=== PATIENT | female | born 1935 | race Caucasian/White ===

== ENCOUNTER → 2017-07-31 | Outpatient (CLI) | payer MEDICARE, OTHER ==
[~2017-07-31] MED LIST: ASCO500T20 PO; ASP81TEC PO; AZIT-21 PO; BENFOTIAMINE PO; CHOL50003 PO; CRAN450T9 PO; FISH OIL LIQUID PO; GFN600TCR PO; IBUP-30 PO; LEVO125T PO; OMG1KC PO; OX BILE PO; PANC1CAP PO; PLANT ENZYMES PO; THYR60TA27 PO; VITA1CAP59 PO
--- NOTE | 2017-07-31 13:25 | Diagnostic Imaging Report ---
PROCEDURE: US Gallbladder. TECHNIQUE: Multiple Real-time grayscale images were obtained over the right upper quadrant in various projections. INDICATION: Right upper quadrant pain. FINDINGS: The visualized portions of the pancreas appear unremarkable. The liver demonstrates a septated cyst measuring 2.3 x 2.4 x 1.7 cm in the left lobe without solid or suspicious component. The gallbladder demonstrates no stones or wall thickening. No pericholecystic fluid. The sonographic Kulkarni sign is negative. Hepatopetal flow in the portal vein is demonstrated. The CBD is 4 mm in caliber. The right kidney is 8.9 cm in length with no hydronephrosis. Slight prominence of the renal pelvis without dilatation of the renal calyces is seen. No significant fluid collection in the upper right abdomen. IMPRESSION: No gallstones or evidence of cholecystitis. Dictated by: Dictated on workstation # [id number]
== END ==
LOC: RAD 12:30
PROVIDERS: ATTEND Nurse Practitioner Family
DX: R10.11 Right upper quadrant pain (principal)
CPT/HCPCS: 76705

== ENCOUNTER → 2018-07-15 | Outpatient (CLI) | payer MEDICARE, OTHER ==
--- NOTE | 2018-07-15 13:37 | Diagnostic Imaging Report ---
PROCEDURE: MRI lumbar spine. TECHNIQUE: Multiplanar, multisequence MRI of the lumbar spine was performed without contrast. INDICATION: Left leg pain. COMPARISON: There are no prior studies available for comparison. FINDINGS: The T2 sagittal images reveal that there is desiccation of the discs at every level and there is narrowing of the disc spaces at L3-L4 and L4-L5. At the L3-L4 level, there is a slight disc bulge centrally. The disc flattens the ventral aspect of the thecal sac and narrows the AP diameter to 1.6 mm. There does not appear to be any significant neuroforaminal narrowing at this level. At the L4-L5 level, there is a disc bulge centrally which flattens the ventral aspect of the thecal sac and narrows the AP diameter to approximately 14.3 mm. There is mild narrowing of the neuroforamen bilaterally at this level. There is also mild narrowing of the neuroforamen bilaterally at L5-S1 and there is slight anterior translation of L5 with respect to S1. The AP diameter of the thecal sac at this level is 10.5 mm. There is no evidence for spinal stenosis or any significant neuroforaminal narrowing at L1-L2 or L2-L3. There is no abnormal signal arising from the cord or other vertebral bodies to indicate an acute abnormality. There do appear to be multiple vertebral body hemangiomas involving the T9, T10, T11, T12, and L3, L4, and S2. There is no abnormal signal arising from the cord. There is an 8.6 x 13.5 mm perineural cyst on the left at T11. This is most likely benign. There is a similar appearing but smaller 6.5 x 7.2 mm cyst on the right at this level. There also appear to be a few benign-appearing sacral cysts. There is no sign of a paraspinal mass. IMPRESSION: 1. 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 There is no evidence for spinal stenosis or nerve root encroachment at these two levels or at any other level of the lumbar spine. 2. There is no acute bony abnormality identified and there is no sign of a cord lesion. 3. There are benign-appearing perineural cysts bilaterally at T11. There also appear to be a few benign sacral cysts. 4. 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 Dictated by: Dictated on workstation # [id number]
== END ==
LOC: RAD 10:15
PROVIDERS: ATTEND Internal Medicine
DX: M47.816 Spondylosis without myelopathy or radiculopathy, lumbar region (principal); G57.92 Unspecified mononeuropathy of left lower limb; D18.09 Hemangioma of other sites; Z86.69 Personal history of other diseases of the nervous system and sense organs
CPT/HCPCS: 72148

== ENCOUNTER → 2019-09-19 | Outpatient (CLI) | payer MEDICARE, OTHER ==
--- NOTE | 2019-09-19 12:37 | Diagnostic Imaging Report ---
PROCEDURE: US carotid duplex, bilateral. TECHNIQUE: Multiple real-time grayscale images were obtained over the carotid arteries in various projections, bilaterally. Additional spectral analysis and color Doppler duplex images were also obtained. INDICATION: Carotid stenosis. FINDINGS: The previous carotid Doppler exam performed on 11/18/2015 noted atherosclerotic disease involving both carotid systems but failed to show any sign of a hemodynamically significant stenosis. On this exam, there is mild hard and soft plaque formation in both carotid systems. The flow velocities still fail to show any sign of a hemodynamically significant stenosis of the common or internal carotid arteries. Both vertebral arteries were identified and there was antegrade flow bilaterally. IMPRESSION: There is atherosclerotic disease involving both carotid systems but there is still no evidence for a hemodynamically significant stenosis of the common or internal carotid arteries. Parameters based on the consensus panel Hawkins-Scale and Doppler ultrasound criteria published June 2003, Radiology, Volume 229. DOPPLER (peak systolic velocity M/S Right Left CCA 1.00 1.16 ICA Proximal .90 .50 ICA Mid .95 .62 ICA Distal .97 .97 RATIO .97 .98 ECA .71 1.46 VERT .59 .60 Dictated by: Dictated on workstation # [id number]
== END ==
LOC: RAD 10:27
PROVIDERS: ATTEND Internal Medicine
DX: I65.23 Occlusion and stenosis of bilateral carotid arteries (principal)
CPT/HCPCS: 93880

== ENCOUNTER 2019-11-05 16:46 | Observation (INO) | payer MEDICARE, OTHER ==
[~2019-11-05] VITALS: Ht 160 cm; Wt 65.9 kg
[2019-11-05] VITALS (8 sets, daily range): BP systolic 123–160; BP diastolic 40–95
[2019-11-05] MEDS ORDERED: ASPIRIN 81 MG CHEW (CHILDREN'S ASA) PO ONE (17:15)
[2019-11-05 17:22] LABS: BASOPHILS % (AUTO) 1 % (0-10); EOSINOPHILS # (AUTO) 0.2 10^3/uL (0.0-0.3); EOSINOPHILS % (AUTO) 3 % (0-10); HEMATOCRIT 42 % (35-52); HEMOGLOBIN 13.9 G/DL (11.5-16.0); LYMPHOCYTES # (AUTO) 1.8 X 10^3 (1.0-4.0); LYMPHOCYTES % (AUTO) 30 % (12-44); MEAN CORPUSCULAR HEMOGLOBIN 31 PG (25-34); MEAN CORPUSCULAR HGB CONC 33 G/DL (32-36); MEAN CORPUSCULAR VOLUME 92 FL (80-99); MEAN PLATELET VOLUME 10.9 FL (7.4-10.4); MONOCYTES # (AUTO) 0.7 X 10^3 (0.0-1.0); MONOCYTES % (AUTO) 13 % (0-12); NEUTROPHILS # (AUTO) 3.2 X 10^3 (1.8-7.8); NEUTROPHILS % (AUTO) 55 % (42-75); PLATELET COUNT 210 10^3/uL (130-400); RED CELL DISTRIBUTION WIDTH 13.8 % (10.0-14.5); WHITE BLOOD COUNT 5.9 10^3/uL (4.3-11.0)
[2019-11-05 17:29] LABS: INR 0.9 (0.8-1.4); PROTHROMBIN TIME PATIENT 12.4 SEC (12.2-14.7)
--- NOTE | 2019-11-05 17:35 | ED Cardiac General ---
History of Present Illness General Chief Complaint: Cardiac/General Problems Stated Complaint: ABNORMAL EKG Nursing Triage Note: Pt to room #6 via ED w/c by family with c/o EKG changes. 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 Pt reports she was sent to this ED for further evaluation by Dr. Coon. Pt reports weakness, palpitation, et SOA. Pt denies CP, fever, or chills. Source: patient History of Present Illness Date Seen by Provider: Nov 05, 2019 Time Seen by Provider: 17:00 Initial Comments PT ARRIVES VIA POV WITH AND DAUGHTER--SENT HERE FROM DR. COON'S OFFICE STATES SHE WAS TOLD HER "LEFT BUNDLE BRANCH BLOCK IS GETTING WORSE" PT STATES SHE WAS DX WITH LBBB IN THE LAST YEAR, BUT HAS NOT SEEN A PRODUCTION LINE WELDER IN SEVERAL YEARS HAD CARDIAC CATH BY DR. LARRY AT [facility] YEARS AGO--WAS TOLD ARTERIES WERE "CLEAR" BUT SHE HAS PROBLEMS WITH HER VALVES--"MITRAL VALVE PROLAPSE" PER PT AND FAMILY. PT DENIES CHEST PAIN STATES SHE HAS BEEN HAVING SHORTNESS OF BREATH FOR THE LAST FEW MONTHS STATES SHE HAS BEEN HAVING LEG SWELLING FOR ABOUT 6 MONTHS, ALONG WITH SWELLING OF HER ABDOMEN STATES SHE HAS ONGOING INTERMITTENT PALPITATIONS--STATES SHE HAD AN EPISODE LAST NIGHT THAT WOKE HER UP--HEART WAS BEATING FAST AND VERY IRREGULAR AND THEN IT WOULD STOP BEATING FOR A SECOND, THEN START BEATING AGAIN. WAS NAUSEATED WITH IT WELL NO SWEATS HAS HAD A COUPLE OF EPISODES OF DIZZINESS ON STANDING AND WITH EXERTION OVER THE LAST COUPLE OF WEEKS Allergies and Home Medications Allergies Coded Allergies: egg (Unverified Allergy, Unknown, 12/12/13) FROM UNCODED ALLERGIES latex (Verified Allergy, Unknown, 12/12/13) milk (Unverified Allergy, Unknown, 12/12/13) FROM UNCODED ALLERGIES Uncoded Allergies: ANTIBIOTICS ALL (Allergy, Unknown, 12/12/13) CARMELA (Allergy, Unknown, 12/12/13) CODEINE (Allergy, Unknown, 12/12/13) CORTISONE (Allergy, Unknown, 12/12/13) DYE (Allergy, Unknown, 12/12/13) Home Medications Ascorbic Acid 500 Mg Tablet, 500 MG PO DAILY WITH LUNCH, (Reported) Aspirin 81 Mg Tabec, 81 MG PO BID, (Reported) Azithromycin 250 Mg Tab, 1 TAB PO DAILY Prescribed by: TERESE MARTÍNEZ on 12/13/13 1243 Cholecalciferol 5,000 Unit Tablet, 5,000 UNIT PO DAILY, (Reported) Cranberry Fruit 450 Mg Tablet, 450 MG PO BID, (Reported) Guaifenesin 600 Mg Tab, 600 MG PO BID Prescribed by: TERESE MARTÍNEZ on 12/13/13 1243 Thyroid,Pork 60 Mg Tablet, 60 MG PO DAILY, (Reported) Vitamin B Complex 1 Cap Capsule, 1 CAP PO DAILY WITH LUNCH, (Reported) [Best Benfotiamine] , 300 MG PO BID, (Reported) [Fish Oil Liquid] , 2 TSP PO DAILY WITH LUNCH, (Reported) [Plant Enzymes] , 1-2 CAP PO TID, (Reported) TAKES 1 TO 2 CAPSULES WITH EACH MEAL DEPENDING ON SIZE OF MEAL Patient Home Medication List Home Medication List Reviewed: Yes Review of Systems Review of Systems Constitutional: see HPI, dizziness EENTM: No Symptoms Reported Respiratory: See HPI, Shortness of Air, SOA With Exertion Cardiovascular: See HPI, Edema, Irregular Heart Rate, Lightheadedness, Palpitations; Denies Syncope Gastrointestinal: See HPI; Denies Abdominal Pain; Nausea; Denies Vomiting Genitourinary: No Symptoms Reported Musculoskeletal: no symptoms reported Skin: no symptoms reported Psychiatric/Neurological: No Symptoms Reported Endocrine: No Symptoms Reported Hematologic/Lymphatic: No Symptoms Reported Past Ghpkmdw-Euvyxe-Khbwiu Hx Past Med/Social Hx: Reviewed and Corrections made Patient Social History Alcohol Use: Denies Use Recreational Drug Use: No Smoking Status: Never a Smoker Recent Foreign Travel: No Contact w/Someone Who Travel: No Recent Infectious Disease Expo: No Immunizations Up To Date Tetanus Booster (TDap): Unknown Past Medical History Surgeries: Yes (HYST/OVARIES INTACT; APPENDECTOMY; T&A; LEFT ANKLE FX/ORIF; CARDIAC CATH) Adenoidectomy, Cardiac, Hysterectomy, Orthopedic, Tonsillectomy Respiratory: Yes Pneumonia Cardiac: Yes ("MITRAL VALVE PROLAPSE" PER PT AND FAMILY; CARDIAC CATH--NO INTERVENTION) Valvular Heart Disease Neurological: No Reproductive Disorders: 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, Menopausal Genitourinary: No Gastrointestinal: Yes Chronic Constipation Musculoskeletal: Yes (LEFT ANKLE FX/ORIF) Fractures Endocrine: Yes Hypothyroidsim HEENT: Yes Tonsilitis Cancer: No Psychosocial: No Integumentary: No Blood Disorders: No Family Medical History Family history: Allergy 09 BROTHER Family history: Arthritis 03 MOTHER Family history: Cardiovascular disease 03 FATHER Family history: Hypertension 03 MOTHER Family history: Osteoporosis 03 MOTHER Myocardial infarction 03 FATHER Visual impairment 03 FATHER (MAC DENGERATION) Physical Exam Vital Signs Vital Signs - First Documented 11/05/19 16:53 Temp 36.8 Pulse 76 Resp 19 B/P (MAP) 148/78 (101) Pulse Ox 98 O2 Delivery Room Air Capillary Refill : Less Than 3 Seconds Height, Weight, BMI Height: 5'1.00" Weight: 118lbs. 4.0oz. [id number]; 25.00 BMI Method:Stated General Appearance: No Apparent Distress, WD/WN HEENT: PERRL/EOMI Neck: Full Range of Motion, Normal Inspection, Non Tender, Supple; No Carotid Bruit, No JVD Respiratory: Normal Breath Sounds, No Accessory Muscle Use, No Respiratory Distress Cardiovascular: Regular Rate, Rhythm, No Edema, No JVD, Normal Peripheral Pulses, Systolic Murmur (? FAINT ? 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 Skin: Normal Color, Warm/Dry Progress/Results/Core Measures Results/Orders Lab Results Laboratory Tests Test 11/05/19 17:00 Range/Units White Blood Count 5.9 4.3-11.0 10^3/uL Red Blood Count 4.54 4.35-5.85 10^6/uL Hemoglobin 13.9 11.5-16.0 G/DL Hematocrit 42 35-52 % Mean Corpuscular Volume 92 80-99 FL Mean Corpuscular Hemoglobin 31 25-34 PG Mean Corpuscular Hemoglobin Concent 33 32-36 G/DL Red Cell Distribution Width 13.8 10.0-14.5 % Platelet Count 210 130-400 10^3/uL Mean Platelet Volume 10.9 H 7.4-10.4 FL Neutrophils (%) (Auto) 55 42-75 % Lymphocytes (%) (Auto) 30 12-44 % Monocytes (%) (Auto) 13 H 0-12 % Eosinophils (%) (Auto) 3 0-10 % Basophils (%) (Auto) 1 0-10 % Neutrophils # (Auto) 3.2 1.8-7.8 X 10^3 Lymphocytes # (Auto) 1.8 1.0-4.0 X 10^3 Monocytes # (Auto) 0.7 0.0-1.0 X 10^3 Eosinophils # (Auto) 0.2 0.0-0.3 10^3/uL Basophils # (Auto) 0.0 0.0-0.1 10^3/uL Prothrombin Time 12.4 12.2-14.7 SEC INR Comment 0.9 0.8-1.4 Activated Partial Thromboplast Time 27 24-35 SEC Sodium Level 139 135-145 MMOL/L Potassium Level 4.5 3.6-5.0 MMOL/L Chloride Level 103 98-107 MMOL/L Carbon Dioxide Level 23 21-32 MMOL/L Anion Gap 13 5-14 MMOL/L Blood Urea Nitrogen 14 7-18 MG/DL Creatinine 0.74 0.60-1.30 MG/DL Estimat Glomerular Filtration Rate > 60 BUN/Creatinine Ratio 19 Glucose Level 93 70-105 MG/DL Calcium Level 9.3 8.5-10.1 MG/DL Corrected Calcium 9.2 8.5-10.1 MG/DL Magnesium Level 2.2 1.6-2.4 MG/DL Total Bilirubin 0.5 0.1-1.0 MG/DL Aspartate Amino Transf (AST/SGOT) 36 H 5-34 U/L Alanine Aminotransferase (ALT/SGPT) 21 0-55 U/L Alkaline Phosphatase 102 40-136 U/L Total Creatine Kinase 43 29-168 U/L Creatine Kinase MB 1.1 <6.6 NG/ML Myoglobin 53.3 10.0-92.0 NG/ML Troponin I < 0.028 <0.028 NG/ML B-Type Natriuretic Peptide 91.6 <100.0 PG/ML Total Protein 7.4 6.4-8.2 GM/DL Albumin 4.1 3.2-4.5 GM/DL TSH [facility] Testing 1.78 0.35-4.94 UIU/ML My Orders Orders - RANJIT,AQUILINO K DO Ed Iv/Invasive Line Start (11/05/19 17:15) Ekg Tracing (11/05/19 17:15) Monitor-Rhythm Ecg Trace Only (11/05/19 17:15) BNP (11/05/19 17:15) Cbc With Automated Diff (11/05/19 17:15) Comprehensive Metabolic Panel (11/05/19 17:15) Creatine Kinase (11/05/19 17:15) Creatine Kinase Mb (11/05/19 17:15) Magnesium (11/05/19 17:15) Protime With Inr (11/05/19 17:15) Partial Thromboplastin Time (11/05/19 17:15) Thyroid Analyzer (11/05/19 17:15) Myoglobin Serum (11/05/19 17:15) Troponin I (11/05/19 17:15) Chest 1 View, Ap/Pa Only (11/05/19 17:15) Aspirin Chewable Tablet (Baby Aspirin Ch (11/05/19 17:15) Medications Given in ED Current Medications Medications Dose Ordered Sig/Carissa Route Start Time Stop Time Status Last Admin Dose Admin Aspirin 324 mg ONCE ONCE PO 11/05/19 17:15 11/05/19 17:17 DC 11/05/19 17:26 324 MG Vital Signs/I&O 11/05/19 16:53 Temp 36.8 Pulse 76 Resp 19 B/P (MAP) 148/78 (101) Pulse Ox 98 O2 Delivery Room Air Blood Pressure Mean: 101 Progress Progress Note : Progress Note UNEVENTFUL ER STAY COMPLETELY ASYMPTOMATIC FOR ENTIRE ER STAY NO ARRHYTHMIAS DURING ER STAY Initial ECG Impression Date: Nov 05, 2019 Initial ECG Impression Time: 17:03 Initial ECG Rate: 83 Initial ECG Rhythm: Normal Sinus (LBBB) Initial ECG Comparisson: Changed (FROM 2014--LBBB WAS NOT PRESENT AT THAT TIME.) Diagnostic Imaging Comments CXR--NO ACUTE PROCESS, PER RADIOLOGIST REPORT AT 1750 Reviewed: Reviewed by Me Departure Communication (Admissions) 1802--SPOKE WITH DR. BLACKBURN PRODUCTION LINE WELDER, WILL SEE PT IN CONSULT. WILL GET ECHOCARDIOGRAM IN AM 1806--SPOKE WITH DR. VANN, HOSPITALIST, ACCEPTS PT FOR ADMIT Impression Primary Impression: Dyspnea Additional Impressions: Palpitations LBBB (left bundle branch block) Edema Disposition: ADMITTED INPATIENT Condition: Stable Admissions Decision to Admit Reason: Admit from ER (General) Decision to Admit/Date: Nov 05, 2019 Time/Decision to Admit Time: 18:05 Departure-Patient Inst. Referrals: MI COON DO (PCP) Primary Care Physician SHANDA COON DNP (Family) Primary Care Physician AQUILINO CHURCH DO Nov 05, 2019 17:35
[2019-11-05 17:37] LABS: ALANINE AMINOTRANSFERASE 21 U/L (0-55); ALBUMIN 4.1 GM/DL (3.2-4.5); ALKALINE PHOSPHATASE 102 U/L (40-136); BILIRUBIN,TOTAL 0.5 MG/DL (0.1-1.0); BUN/CREATININE RATIO 19; CALCIUM 9.3 MG/DL (8.5-10.1); CARBON DIOXIDE 23 MMOL/L (21-32); CHLORIDE 103 MMOL/L (98-107); CREATINE KINASE 43 U/L (29-168); CREATININE SERUM 0.74 MG/DL (0.60-1.30); GFR ESTIMATED > 60; GLUCOSE 93 MG/DL (70-105); MAGNESIUM 2.2 MG/DL (1.6-2.4); POTASSIUM 4.5 MMOL/L (3.6-5.0); SODIUM 139 MMOL/L (135-145); TOTAL PROTEIN 7.4 GM/DL (6.4-8.2)
--- NOTE | 2019-11-05 17:49 | Diagnostic Imaging Report ---
INDICATION: EKG changes. Palpitations and shortness of air. COMPARISON STUDY: Chest from 06/29/2015. FINDINGS: Portable view of the chest demonstrates mild calcification of the aorta. The heart size is upper normal with normal vascularity. Lungs are clear. There are no pleural effusions. IMPRESSION: The heart size is normal with mild calcification of the aortic arch. Dictated by: Dictated on workstation # [id number]
[2019-11-05 17:57] LABS: CREATINE KINASE MB 1.1 NG/ML (<6.6); TSH (THYROID ANALYZER) 1.78 UIU/ML (0.35-4.94)
--- NOTE | 2019-11-05 19:34 | NUR ---
JOSE ROBERTO REEVES admitted to room CU11-1, with an admitting diagnosis of Palpatations,dyspnea,pedal edema,lbbb, on 11/05/19 from ED [facility], accompanied by .JOSE ROBERTO REEVES introduced to surroundings, call light, bed controls, phone, TV, temperature control, lights, meal times, smoking policy, visitor policy, side rail policy, bathrooms and showers. Patient Rights given to patient in the handbook. JOSE ROBERTO REEVES verbalizes understanding that [facility] is not responsible for the loss or damage to any personal effects or valuables that are kept in the patients possession during their hospitalization. The following Patient Care Plans were discussed with the patient and : Discharge Planning, pain,activity, and diet. JOSE ROBERTO REEVES verbalizes understanding of Interdisciplinary Patient Education. Patient and/or family were informed about the Rapid Response Team and its purpose.
[2019-11-05] MEDS ORDERED: CATHETER FLUSH 10 ML SYR IV PRN (19:45)
[2019-11-05] MEDS: CATHETER FLUSH 10 ML SYR IV SCH (22:26)
[2019-11-06] VITALS: BP 118/44
--- NOTE | 2019-11-06 01:00 | NUR ---
Patient transferred to room 511 for ICU bed availability at this time.
[2019-11-06 03:42] LABS: BASOPHILS % (AUTO) 1 % (0-10); EOSINOPHILS # (AUTO) 0.3 10^3/uL (0.0-0.3); EOSINOPHILS % (AUTO) 4 % (0-10); HEMATOCRIT 38 % (35-52); HEMOGLOBIN 12.4 G/DL (11.5-16.0); LYMPHOCYTES # (AUTO) 1.6 X 10^3 (1.0-4.0); LYMPHOCYTES % (AUTO) 26 % (12-44); MEAN CORPUSCULAR HEMOGLOBIN 30 PG (25-34); MEAN CORPUSCULAR HGB CONC 33 G/DL (32-36); MEAN CORPUSCULAR VOLUME 92 FL (80-99); MONOCYTES # (AUTO) 0.8 X 10^3 (0.0-1.0); MONOCYTES % (AUTO) 13 % (0-12); NEUTROPHILS # (AUTO) 3.4 X 10^3 (1.8-7.8); NEUTROPHILS % (AUTO) 57 % (42-75); PLATELET COUNT 203 10^3/uL (130-400); RED CELL DISTRIBUTION WIDTH 13.6 % (10.0-14.5); WHITE BLOOD COUNT 6.1 10^3/uL (4.3-11.0)
[2019-11-06 04:00] VITALS: BP 146/71
[2019-11-06 04:07] LABS: ALANINE AMINOTRANSFERASE 15 U/L (0-55); ALBUMIN 3.5 GM/DL (3.2-4.5); ALKALINE PHOSPHATASE 84 U/L (40-136); BILIRUBIN,TOTAL 0.6 MG/DL (0.1-1.0); BUN/CREATININE RATIO 13; CALCIUM 8.7 MG/DL (8.5-10.1); CARBON DIOXIDE 24 MMOL/L (21-32); CHLORIDE 107 MMOL/L (98-107); CREATININE SERUM 0.75 MG/DL (0.60-1.30); GFR ESTIMATED > 60; GLUCOSE 92 MG/DL (70-105); POTASSIUM 3.7 MMOL/L (3.6-5.0); SODIUM 141 MMOL/L (135-145); TOTAL PROTEIN 6.1 GM/DL (6.4-8.2)
[2019-11-06] MEDS: CATHETER FLUSH 10 ML SYR IV SCH (05:35)
--- NOTE | 2019-11-06 07:56 | Short Stay Summary ---
History of Present Illness History of Present Illness Reason for visit/HPI 84-year-old lady with history of hypothyroidism, reporting mild dyspnea on exertion which has been worsening recently. Mild pedal edema on and off. Reporting that she has left bundle branch block at least for the past 4 years. She denied any chest pain, syncopal episodes, currently asymptomatic, she was monitored overnight in the hospital and no arrhythmia was detected. EKG showing left bundle branch block Date of Admission Nov 05, 2019 at 18:05 Date of Discharge November 06, 2019 Time Seen by Provider: 07:54 Attending Physician Saleem Coon DO Admitting Physician Saleem Coon DO Consult Allergies and Home Medications Allergies Coded Allergies: egg (Unverified Allergy, Unknown, 12/12/13) FROM UNCODED ALLERGIES latex (Verified Allergy, Unknown, 12/12/13) milk (Unverified Allergy, Unknown, 12/12/13) FROM UNCODED ALLERGIES Uncoded Allergies: ANTIBIOTICS ALL (Allergy, Unknown, 12/12/13) CARMELA (Allergy, Unknown, 12/12/13) CODEINE (Allergy, Unknown, 12/12/13) CORTISONE (Allergy, Unknown, 12/12/13) DYE (Allergy, Unknown, 12/12/13) Home Medications Ascorbic Acid 500 Mg Tablet, 500 MG PO DAILY WITH LUNCH, (Reported) Aspirin 81 Mg Tabec, 81 MG PO BID, (Reported) Azithromycin 250 Mg Tab, 1 TAB PO DAILY Prescribed by: TERESE MARTÍNEZ on 12/13/13 1243 Cholecalciferol 5,000 Unit Tablet, 5,000 UNIT PO DAILY, (Reported) Cranberry Fruit 450 Mg Tablet, 450 MG PO BID, (Reported) Guaifenesin 600 Mg Tab, 600 MG PO BID Prescribed by: TERESE MARTÍNEZ on 12/13/13 1243 Thyroid,Pork 60 Mg Tablet, 60 MG PO DAILY, (Reported) Vitamin B Complex 1 Cap Capsule, 1 CAP PO DAILY WITH LUNCH, (Reported) [Best Benfotiamine] , 300 MG PO BID, (Reported) [Fish Oil Liquid] , 2 TSP PO DAILY WITH LUNCH, (Reported) [Plant Enzymes] , 1-2 CAP PO TID, (Reported) TAKES 1 TO 2 CAPSULES WITH EACH MEAL DEPENDING ON SIZE OF MEAL Patient Home Medication List Home Medication List Reviewed: Yes Past Xyusyeq-Kriagk-[id number] Hx Patient Social History Marrital Status: Employed/Student: retired Alcohol Use: Denies Use Recreational Drug Use: No Smoking Status: Never a Smoker 2nd Hand Smoke Exposure: No Recent Foreign Travel: No Contact w/other who traveled: No Recent Infectious Disease Expo: No Immunizations Up To Date Tetanus Booster (TDap): Unknown Surgeries Yes (HYST/OVARIES INTACT; APPENDECTOMY; T&A; LEFT ANKLE FX/ORIF; CARDIAC CATH) Adenoidectomy, Cardiac, Hysterectomy, Orthopedic, Tonsillectomy Respiratory Yes Cardiovascular Yes ("MITRAL VALVE PROLAPSE" PER PT AND FAMILY; CARDIAC CATH--NO INTERVENTION) Valvular Heart Disease Neurological No Reproductive System : No Hx Reproductive Disorders: No ALL SOURCE ANALYST History: Hysterectomy, Menopausal Genitourinary No Gastrointestinal Yes Chronic Constipation Musculoskeletal Yes (LEFT ANKLE FX/ORIF) Fractures Endocrine History of Endocrine Disorders: Yes Endocrine Disorders: Hypothyroidsim HEENT History of HEENT Disorders: Yes HEENT Disorders: Tonsilitis Cancer No Psychosocial History of Psychiatric Problem: No Integumentary History of Skin or Integumenta: No Blood Transfusions History of Blood Disorders: No Family Medical History Family Hx: Family history: Allergy 09 BROTHER Family history: Arthritis 03 MOTHER Family history: Cardiovascular disease 03 FATHER Family history: Hypertension 03 MOTHER Family history: Osteoporosis 03 MOTHER Myocardial infarction 03 FATHER Visual impairment 03 FATHER (MAC DENGERATION) Review of Systems Constitutional: see HPI EENTM: see HPI Respiratory: see HPI; No cough; dyspnea on exertion; No hemoptysis, No orthopnea, No phlegm, No short of breath, No stridor, No wheezing, No other Cardiovascular: see HPI; No chest pain, No edema, No Hx of Intervention; palpitations; No syncope, No vascular heart diseas, No other Gastrointestinal: see HPI Genitourinary: see HPI Musculoskeletal: see HPI Skin: see HPI Psychiatric/Neurological: No Symptoms Reported, See HPI Physical Exam Vital Signs Vital Signs - First Documented 11/05/19 16:53 Temp 36.8 Pulse 76 Resp 19 B/P (MAP) 148/78 (101) Pulse Ox 98 O2 Delivery Room Air Capillary Refill : Less Than 3 Seconds Height, Weight, BMI Height: 5'1.00" Weight: 118lbs. 4.0oz. 53.261927iz; 25.74 BMI Method:Stated General Appearance: No Apparent Distress, WD/WN Eyes: Bilateral Eye Normal Inspection, Bilateral Eye PERRL, Bilateral Eye EOMI HEENT: PERRL/EOMI, TMs Normal, Normal ENT Inspection, Pharynx Normal Neck: Full Range of Motion, Normal Inspection, Non Tender, Supple, Carotid Bruit Respiratory: Chest Non Tender, Lungs Clear, Normal Breath Sounds, No Accessory Muscle Use, No Respiratory Distress Cardiovascular: Regular Rate, Rhythm, No Edema, No Gallop, No JVD, No Murmur, Normal Peripheral Pulses Gastrointestinal: Normal Bowel Sounds, No Organomegaly, No Pulsatile Mass, Non Tender, Soft Back: Normal Inspection, No CVA Tenderness, No Vertebral Tenderness Extremity: Normal Capillary Refill, Normal Inspection, Normal Range of Motion, Non Tender, No Calf Tenderness, No Pedal Edema Neurologic/Psychiatric: Alert, Oriented x3, No Motor/Sensory Deficits, Normal Mood/Affect Skin: Normal Color, Warm/Dry Lymphatic: No Adenopathy Clinical Quality Measures Admission Status Admission Status: Observation DVT/VTE Risk/Contraindication: Risk Factor Score Per Nursin RFS Level Per Nursing on Admit: 2=Moderate Short Stay Diagnosis Discharge Diagnosis-Short Stay Admission Diagnosis: Shortness of breath Palpitation Left bundle branch block Hypothyroidism Final Discharge Diagnosis: Shortness of breath Palpitation Left bundle branch block Hypothyroidism Conclusion Labs Laboratory Tests 11/05/19 17:00: White Blood Count 5.9, Red Blood Count 4.54, Hemoglobin 13.9, Hematocrit 42, Mean Corpuscular Volume 92, Mean Corpuscular Hemoglobin 31, Mean Corpuscular Hemoglobin Concent 33, Red Cell Distribution Width 13.8, Platelet Count 210, Mean Platelet Volume 10.9H, Neutrophils (%) (Auto) 55, Lymphocytes (%) (Auto) 30, Monocytes (%) (Auto) 13H, Eosinophils (%) (Auto) 3, Basophils (%) (Auto) 1, Neutrophils # (Auto) 3.2, Lymphocytes # (Auto) 1.8, Monocytes # (Auto) 0.7, Eosinophils # (Auto) 0.2, Basophils # (Auto) 0.0, Prothrombin Time 12.4, INR Comment 0.9, Activated Partial Thromboplast Time 27, Sodium Level 139, Potassium Level 4.5, Chloride Level 103, Carbon Dioxide Level 23, Anion Gap 13, Blood Urea Nitrogen 14, Creatinine 0.74, Estimat Glomerular Filtration Rate > 60, BUN/Creatinine Ratio 19, Glucose Level 93, Calcium Level 9.3, Corrected Calcium 9.2, Magnesium Level 2.2, Total Bilirubin 0.5, Aspartate Amino Transf (AST/SGOT) 36H, Alanine Aminotransferase (ALT/SGPT) 21, Alkaline Phosphatase 102, Total Creatine Kinase 43, Creatine Kinase MB 1.1, Myoglobin 53.3, Troponin I < 0.028, B-Type Natriuretic Peptide 91.6, Total Protein 7.4, Albumin 4.1, TSH [place] Testing 1.78 11/05/19 22:58: Troponin I < 0.028 11/06/19 03:04: White Blood Count 6.1, Red Blood Count 4.08L, Hemoglobin 12.4, Hematocrit 38, Mean Corpuscular Volume 92, Mean Corpuscular Hemoglobin 30, Mean Corpuscular Hemoglobin Concent 33, Red Cell Distribution Width 13.6, Platelet Count 203, Mean Platelet Volume 11.0H, Neutrophils (%) (Auto) 57, Lymphocytes (%) (Auto) 26, Monocytes (%) (Auto) 13H, Eosinophils (%) (Auto) 4, Basophils (%) (Auto) 1, Neutrophils # (Auto) 3.4, Lymphocytes # (Auto) 1.6, Monocytes # (Auto) 0.8, Eosinophils # (Auto) 0.3, Basophils # (Auto) 0.0, Sodium Level 141, Potassium Level 3.7, Chloride Level 107, Carbon Dioxide Level 24, Anion Gap 10, Blood Urea Nitrogen 10, Creatinine 0.75, Estimat Glomerular Filtration Rate > 60, BUN/Creatinine Ratio 13, Glucose Level 92, Calcium Level 8.7, Corrected Calcium 9.1, Total Bilirubin 0.6, Aspartate Amino Transf (AST/SGOT) 23, Alanine Aminotransferase (ALT/SGPT) 15, Alkaline Phosphatase 84, Total Protein 6.1L, Albumin 3.5 Conclusion/Plan Shortness of breath, chronic, slight deterioration recently, workup has been negative including electrolytes, cardiac enzymes, BNP, chest x-ray. Planning to evaluate echo and stress test which can be done as an outpatient Palpitation, no further episodes were reported, monitored on telemetry and no arrhythmia was addicted, if she continued to have palpitation would consider Holter monitor next Left bundle branch block, reporting that she had an EKG in [facility] about 4 years ago and she was told that she has left bundle branch block, asymptomatic otherwise, planning to evaluate echo and stress test which can be done as an outpatient Hypothyroidism, managed by primary care physician DANIELE BLACKBURN MD Nov 06, 2019 07:56
[2019-11-06 08:00] VITALS: BP 143/76
--- NOTE | 2019-11-06 08:50 | NUR ---
JOSE ROBERTO REEVES demonstrates understanding of discharge instructions and accurately returns instructions upon questioning. Copy of Post-Discharge Instructions and Medication Discharge Instructions given to pt. JOSE ROBERTO REEVES is able to manage continuing needs after discharge. Patients belongings returned to pt. Skin dry and intact; no breakdown noted. Patient discharged from [facility]- on 11/06/19 at 0850. JOSE ROBERTO REEVES left floor via wc, accompanied by staff/family.
--- OUTSIDE RECORDS SUMMARY | 2019-11-07 17:51 | XMS REPORT | Encounter Summary ---
Author Author [facility] Organization [facility] Address Unknown Phone Unavailable Care Team Providers Care Information Assurance Engineer Name Role Phone Saleem Coon PCP Reason for Visit * Reason Comments test questions Encounter Details Care Team Description Date Type Department Yasmeen Goncalves, RN test questions 01/06/2019 Telephone [facility] [address] [place] [address] Social History Date Tobacco Use Types Packs/Day Years Used Never Smoker Smokeless Tobacco: Never Used Drinks/Week oz/Week Comments Alcohol Use No Sex Assigned at Date Recorded Not on file Industry Job Start Date Occupation Not on file Not on file Not on file Travel End Travel History Travel Start No recent travel history available. documented as of this encounter Miscellaneous Notes * Telephone Encounter - Niraj Miller LPN - 01/09/2019 3:57 PM CDT 01/09/19 Return call to pt's daughter Irlanda. Stated to Irlanda the dye is nessary and if the pt does not want the test then it can be canceled. Stated to Irlanda the dye is usually out of the body in 24 to 48 hours. Irlanda states their are a lot of law suits over gadolinium poisoning . Irlanda states they will let the pt know and most likely will not do the test. * Telephone Encounter - Ruth Garcia MD - 01/07/2019 7:52 AM CDT To get full eval with MRI should consider. If she is hesitant, dc test * Telephone Encounter - Yasmeen Goncalves, RN - 01/06/2019 10:29 AM CDT Returned call to pt's daughter after receiving voicemail that states patient everett ld not like to receive the gadolinium dye during the Cardiac MRI. She is concern ed about to possible side effects of it getting to her brain, and states she yamilkar madelyn is having trouble with her brain and prefers to not receive the dye. Explai nadine the purpose of the dye within the Cardiac MRI, and that in order to evaluate the heart fully including the perfusion, the dye is necessary, and unsure how h elpful the MRI would be without the dye component. She would like this to be run by Dr. Garcia to see if able to gain necessary information without the use of the dye. Routed to Dr. Garcia. documented in this encounter Plan of Treatment Not on filedocumented as of this encounter Visit Diagnoses Not on filedocumented in this encounter
--- OUTSIDE RECORDS SUMMARY | 2019-11-07 17:51 | XMS REPORT | Encounter Summary ---
Author Author [facility] Organization [facility] Address Unknown Phone Unavailable Care Team Providers Care Online Editor Name Role Phone Coon Saleem PCP Encounter Details Care Team Description Date Type Department Forest Hawkins RN 05/23/2019 Telephone [facility] [address] [place] [address] Social History Date Tobacco Use Types Packs/Day [...] encounter Miscellaneous Notes * Telephone Encounter - Tabatha Hawkins RN - 05/26/2019 11:25 AM CDT I called and spoke w/ rohith Rosas's dghtr. I let her know Dr. Garcia was updated r egarding the LBBB seen at the PCP office. I let her know we have not received th e ECG from the PCP office, but Dr. Garcia reports the LBBB is known, and if pt is having concerning symptoms we could always schedule her for a revaluation. Reggie mello v/u. Alison reports pt's main concern is extreme fatigue, which is why she saw her PCP. I let Alison know we would request the ECG from the PCP office and ask Dr. Garcia to review. Alison v/u. * Telephone Encounter - Ruth Garcia MD - 05/23/2019 1:36 PM CDT She has known LBBB o extra eval * Telephone Encounter - Forest Hawkins RN - 05/23/2019 12:39 PM CDT Live call from pt's daughter stating she was at her PCP's office yesterday and t manjity got a call this am stating pt had LBBB show up on her ECG. In review of pt chart I state there was an ECG done in our system 12/26/18 that sh owed an incomplete LBBB, so this is not a totally new finding. I ask if pt has f elt any abnormal heart beats/palpitations, CP, SOA, etc. and she states no, in g eneral she says pt has felt the same as when Dr. Garcia saw her on 12/26/18. Stated I will call PCP's office to request the ECG they did be sent to us via fa x attn Dr. Garcia, and will send Dr. Garcia a message asking her to advise if she has any recs in the interim. Was only able to LVM at PCP Dr. Bray's offic e requesting ECG and routing to Dr. Garcia. documented in this encounter Plan of Treatment Not on filedocumented as of this encounter Visit Diagnoses Not on filedocumented in this encounter
--- OUTSIDE RECORDS SUMMARY | 2019-11-07 17:51 | XMS REPORT | Clinical Summary ---
Author Author [facility] Organization [facility] Address Unknown Phone Unavailable Care Team Providers Care Collector Name Role Phone Saleem Coon PCP Allergies Comments Active Allergy Reactions Severity Noted Date All CARMELA--lidocaine, novacaine............. Anoop-1 Anaphylaxis High 10/31/2016 Furosemide Anaphylaxis High 09/24/2015 Naltrexone Analogues 09/24/2015 Medications End Date Status Medication Sig Dispensed Refills Start Date Active thyroid, pork, (ARMOUR) Take 90 mg by 0 60 mg Tab tablet mouth daily. Active Problems Problem Noted Date Mitral regurgitation 10/31/2016 Pulmonary hypertension 04/01/2015 Overview: Moderate per Echo Hypothyroidism Fatigue Exertional dyspnea Multiple sclerosis Family history of coronary artery disea se Chronic diastolic congestive heart fail ure Resolved Problems Problem Noted Date Resolved Date Mitral valve prolapse 11/06/2016 03/26/2018 Family History Medical History Relation Name Comments Kidney cancer Brother Melanoma Brother Heart attack Father Relation Name Status Comments Brother (Age 5) Brother Alive Father (Age 88) Mother (Age 83) Social History Date Tobacco Use Types Packs/Day Years Used Never Smoker Smokeless Tobacco: Never Used Drinks/Week oz/Week Comments Alcohol Use No Sex Assigned at Date Recorded Not on file Industry Job Start Date Occupation Not on file Not on file Not on file Travel End Travel History Travel Start No recent travel history available. Last Filed Vital Signs Reading Time Taken Comments Vital Sign 113/59 12/26/2018 1:41 PM CDT lowest Blood Pressure 80 12/26/2018 1:40 PM CDT Pulse - - Temperature - - Respiratory Rate - - Oxygen Saturation - - Inhaled Oxygen Concentration 61.7 kg (136 lb) 12/26/2018 1:40 PM CDT Weight 157.5 cm (5' 2") 12/26/2018 1:40 PM CDT Height 24.87 12/26/2018 1:40 PM CDT Body Mass Index Plan of Treatment Health Maintenance Due Date Last Done Comments Medicare Annual Wellness 1935 Td # 1935 Zoster Vaccine# (1 of 2) 01/21/1986 Depression Screening 01/21/2001 PHQ-9 # Fall Risk Assessment # 01/21/2001 Osteoporosis Screening 01/21/2001 Pneumococcal Vaccine: 65+ 01/21/2001 Years (1 of 2 - PCV13) Influenza Vaccine (Season 06/27/2020 Ended) Results Not on filefrom Last 3 Months Insurance Type Payer Benefit Subscriber ID Effective Phone Address Plan / Dates Group Medicare MEDICARE MEDICARE xxxxxxxxxx Effective [place] PART A B for [place] dates COMMERCIAL-NONCONTRACTED MISC xxxxxxxxx 2015- COMMERCIAL Present NONCONTRAC DHRUV MEDICARE REPLACEMENT PLAN HOME CARE xxxxxxxxx 03/17- MDCR Present REPLACEMEN T MISC PPS Advance Directives For more information, please contact: [phone] Patient [place] Farmer Explanation Type Date Recorded Advance Directives and Living Will Power of News Specialist Health Care Directive
--- OUTSIDE RECORDS SUMMARY | 2019-11-07 17:51 | XMS REPORT | Encounter Summary ---
Author Author [facility] Organization [facility] Address Unknown Phone Unavailable Care Team Providers Care Aircraft Electronics Technical Officer Name Role Phone Saleem Coon PCP Encounter Details Care Team Description Date Type Department Ruth Garcia MD [address] [place] [address] [phone] 05/27/2019 Documentation [facility] [address] [place] [address] Social History Date Tobacco Use Types Packs/Day Years Used Never Smoker Smokeless Tobacco: Never Used Drinks/Week oz/Week Comments Alcohol Use No Sex Assigned at Date Recorded Not on file Industry Job Start Date Occupation Not on file Not on file Not on file Travel End Travel History Travel Start No recent travel history available. documented as of this encounter Plan of Treatment Not on filedocumented as of this encounter Procedures Comments Procedure Name Priority Date/Time Associated Diag nosis EKG OUTSIDE RECORD Routine 05/22/2019 9:37 AM CDT documented in this encounter Visit Diagnoses Not on filedocumented in this encounter
--- OUTSIDE RECORDS SUMMARY | 2019-11-07 17:52 | XMS REPORT | Encounter Summary ---
Author Author [facility] Organization [facility] Address Unknown Phone Unavailable Care Team Providers Care Applications Tester Name Role Phone Saleem Coon PCP Encounter Details Care Team Description Date Type Department Ronda Bashir RN 03/26/2018 Abstract [facility] [address] [place] [address] Social History Date Tobacco Use Types Packs/Day [...]
--- OUTSIDE RECORDS SUMMARY | 2019-11-07 17:52 | XMS REPORT | Encounter Summary ---
Author Author [facility] Organization [facility] Address Unknown Phone Unavailable Care Team Providers Care Skiver Heel Tap Name Role Phone Saleem Coon PCP Reason for Visit * Reason Comments Lab results Encounter Details Care Team Description Date Type Department Sheila Albarran RN Lab results 12/31/2018 Telephone [facility] [address] [place], [place] [id number] Social History Date Tobacco Use Types Packs/Day [...] encounter Miscellaneous Notes * Telephone Encounter - Sheila Albarran RN - 12/31/2018 3:20 PM CDT Reviewed results of most recent lab and Dr. Anderson's recommendations with Melanie. Angel e verbalized understanding and is in agreement with plan. Forwarded results to p cp. Pt has has a call into pcp and will address when she talks to them as well. * Telephone Encounter - Sheila Albarran RN - 12/31/2018 3:15 PM CDT ----- Message from Ruth Garcia MD sent at 12/31/2018 8:46 AM CDT ----- Please send results to her PCP or who is managing her thyroid med; may have role in her sxs documented in this encounter Plan of Treatment Not on filedocumented as of this encounter Visit Diagnoses Not on filedocumented in this encounter
--- OUTSIDE RECORDS SUMMARY | 2019-11-07 17:52 | XMS REPORT | Encounter Summary ---
Author Author [facility] Organization [facility] Address Unknown Phone Unavailable Care Team Providers Care Men'S Furnishings Salesperson Name Role Phone Saleem Coon PCP Reason for Visit * Reason Comments Symptoms Encounter Details Care Team Description Date Type Department Aracelis Lopez RN Symptoms 12/06/2016 Telephone [facility] [address] [place] [address] Social History Date Tobacco Use Types Packs/Day [...] encounter Miscellaneous Notes * Telephone Encounter - Alejandra Minor - 12/08/2016 8:22 AM CDT 12/08 this pt has been scheduled 3 different times and has called back to cancel each time! I will make another attempt at scheduling but can't guarantee that she will keep it. * Telephone Encounter - Eliazar Javier RN - 12/07/2016 5:06 PM CDT Made call to patient with JORJE mckenna. She v/u and states she has not taken her la six since before her appointment with JORJE. She states she is gald we called as she is feeling wiped out/so fatigued. Her pressures have been low 80s/40s. She is having slight edema in her ankles. SHe also stated that at the beginning of the day her stomach feels fine but then she feels like she is 6months by the end of the day. Denies any dizziness, lightheadedness, CP, SOA. States she is still having palpitations. Discussed going to ER if symptoms worsen. Pu t pt on hold and made call to BAA. Spoke with [facility] regarding symptoms. BAA rec compression stockings, to take lasix if SBP is in 90s, and to proceed to ER if symptoms worsen. She states that we can do holter if palpitations get worse. Spoke again with patient and relayed message from BAA> SHe v/u. Will route to schedulers to set up appointment with BA> Note that this is to be a 4wk f/u which would of been 11/28/16. * Telephone Encounter - Sommer Clarke MD - 12/07/2016 1:48 PM CDT Overall valve leakage appeared less prominent than on last study, pumping functi on appeared normal. The mitral valve does appear a little "floppy" and appears to leak moderately. Because that valve leaks into the top of the heart, it can stir up extra heart beats or abnormal rhythms and if palpitations persist we can do a holter monitor to evaluate. If oxygen is helping would continue. How oft en is she using lasix? * Telephone Encounter - Aracelis Lopez RN - 12/06/2016 9:33 AM CDT Patient called stating she had noticed an increase in palpitations "over the pas t few days". Patient also stated she noticed having "black toe nails" over thi s time as well. Patient had taken herself off of her prescribed oxygen and whe n she put herself back on oxygen - symptoms disapated. Patient asking if JORJE h tiffany reviewed [facility] echo? Indicated to her I gave her the copy yesterday and will ask BATerrie if she has reviewed echo and will discuss symptoms with BATerrie. Patient did state she has noticed a decrease in swelling since starting Lasix. appt changed from 2:00 to 9:50am per patient request. Verbalized understand ing of discussion. Routed to BAA for review. documented in this encounter Plan of Treatment Not on filedocumented as of this encounter Visit Diagnoses Not on filedocumented in this encounter
--- OUTSIDE RECORDS SUMMARY | 2019-11-07 17:52 | XMS REPORT | Encounter Summary ---
Author Author [facility] Organization [facility] Address Unknown Phone Unavailable Care Team Providers Care Railcar Switchman Name Role Phone Saleem Coon PCP Reason for Referral * MRI/CAT/PET Scan (Routine) Referred By Contact Referred To Contact Status Reason Specialty Diagnoses / Procedures Ruth Garcia MD [address] [facility] [address] [place] [address] [facility] [address] [place] [address] Closed Radiology Diagnoses Chronic diastolic congestive heart failure (HCC) Mitral valve insufficiency, unspecified etiology P rocedures CV MRI Cardiac w wo contrast * Electrophysiology (Routine) Referred By Contact Referred To Contact Status Reason Specialty Diagnoses / Procedures Ruth Garcia MD [address] [facility] [address] [place] [address] Closed Diagnoses Bradycardia P rocedures Cardiac Monitoring Patch * Diagnostic Imaging (Routine) Referred By Contact Referred To Contact Status Reason Specialty Diagnoses / Procedures Ruth Garcia MD [address] [facility] [address] [place] [address] Closed Diagnoses Chronic diastolic congestive heart failure (HCC) Mitral valve insufficiency, unspecified etiology P rocedures Electrocardiogram (ECG) Reason for Visit * Reason Comments Congestive Heart Failure Encounter Details Care Team Description Date Type Department Ruth Garcia MD [address] [facility] [address] [place] [address] [phone] Chronic diastolic congestive heart failu re (HCC) (Primary Dx); Mitral valve insufficiency, unspecified etiology; Bradycardia; Laboratory exam ordered as part of routine general medical examination; Exertional dyspnea; Pulmonary hypertension (HCC); Fatigue, unspecified type 12/26/2018 Office Visit [facility] [address] [place] [address] Social History Date Tobacco Use Types Packs/Day Years Used Never Smoker Smokeless Tobacco: Never Used Drinks/Week oz/Week Comments Alcohol Use No Sex Assigned at Date Recorded Not on file Industry Job Start Date Occupation Not on file Not on file Not on file Travel End Travel History Travel Start No recent travel history available. documented as of this encounter Last Filed Vital Signs Reading Time Taken [...] 12/26/2018 1:40 PM CDT Body Mass Index documented in this encounter Patient Instructions * Patient Instructions* Perri Torres - 12/26/2018 1:45 PM CDT Your doctor has ordered the following test(s): CBC, CMP, lipid panel, TSH. These are blood tests. Please have this done today in [facility], [address] Zio patch. We will attempt to have this done today CV MRI We will attempt to assist you with scheduling your testing. Depending on your in surance, a pre-authorization may be required to schedule your testing. If this i s the case, you will receive a call to schedule after your insurance approval rooney s been received. You will receive a call 5-7 days after testing has been completed to discuss the results. Medication Instructions: No changes Additional Instructions: None Your doctor has placed a referral to: None Follow-up: Depending on results of testing Please call the Nurse Line at with any questions or concerns. For medication refill needs, please first contact your pharmacy. For any [facility] scheduling questions, please landry apple . At [facility], high quality patient care is our top priority. To ensure our cardiovascular standards are continuously met, you may receive a survey via MyLuvs or text message, and we ask that you please take the time to fill it out. We s trive to ensure you are very satisfied with every visit. Thank you in advance f or taking the time to fill this out. It was a pleasure to see you today OMAR Rayo documented in this encounter Progress Notes * Ruth Garcia MD - 12/26/2018 1:45 PM CDT [facility] Sarah Appointment Date: 12/26/2018 Saleem Coon DO [address] [place] [id number] RE: Melanie Reeves : 1935 Visit provider: Ruth Garcia MD Dear Saleem Coon DO: I had the pleasure of seeing Melanie Reeves in the office today. She is a(n) 83-year- old female and presents with the following chief complaint(s): Congestive heart failure. HPI: Ms. Reeves is an 83-year-old female whom we have followed with a history of mitr al regurgitation. At the time of our last visit, severe mitral regurgitation vi a echocardiogram was noted. Recommendations were made for a LANE, though due to an epiglottis pathology, it was felt LANE was contraindicated. Recommendations a t that time were for a cardiac MRI to further evaluate her MR. This was deferre d by her at that time. Today, we saw her with new symptoms of profound fatigue. She feels like she is melting. She does spot check her heart rate and states at times her monitor tel ls her it is 20 beats per minute. Other than feeling fatigued, she does not not e presyncope or syncope. Her only medication is of that related to her thyroid medicine. Her weight has been stable. She does have dyspnea on exertion. She denies dyspnea at rest, orthopnea, PND, syncope, or symptoms of stroke. Patient Active Problem List Diagnosis SNOMED CT(R) Hypothyroidism HYPOTHYROIDISM Fatigue FATIGUE Exertional dyspnea DYSPNEA ON EXERTION Pulmonary hypertension (HCC) PULMONARY HYPERTENSION Multiple sclerosis (HCC) MULTIPLE SCLEROSIS Mitral regurgitation MITRAL VALVE REGURGITATION Family history of coronary artery disease FAMILY HISTORY OF CORONARY ARTERIO SCLEROSIS Chronic diastolic congestive heart failure (HCC) CHRONIC DIASTOLIC HEART ISAIAH LURE Past Medical History: Diagnosis Date Chest pain Chronic diastolic congestive heart failure (HCC) Edema 09/11 Lower ext Exertional dyspnea Family history of coronary artery disease H. pylori ulcer Hypothyroidism Left bundle branch block (LBBB) Mitral regurgitation Mitral valve prolapse 11/06/2016 Multiple sclerosis (HCC) Myocardial infarction (HCC) Type 2 Nocturnal hypoxemia Osteoporosis Positive PHYLLIS (antinuclear antibody) Pulmonary hypertension (HCC) 03/2015 Moderate per Echo Thyroid nodule Tricuspid regurgitation Past Surgical History: Procedure Laterality Date APPENDECTOMY CARDIAC CATHETERIZATION 03/24/2016 No angiographic evidence of coronary artery disease ([facility]) FIBULA FRACTURE SURGERY HYSTERECTOMY RIGHT HEART CATH 03/24/2016 RA: 7. RV: 41/9. PA: 38/11/20. Wedge: 15 with V-waves to 25. LV: 143/1 3, Ascending aortic pressure: 145/61. CO/CI (Lolly): 3.6/2.1. LVEF 55%. ([facility]) TONSILLECTOMY AND ADENOIDECTOMY Final Medications: Current Outpatient Prescriptions Medication Sig Dispense Refill thyroid, pork, (ARMOUR) 60 mg Tab tablet Take 90 mg by mouth daily. No current facility-administered medications for this visit. Allergies Allergen Reactions Anoop-1 Anaphylaxis All CARMELA--lidocaine, Novocain............. Lasix [Furosemide] Anaphylaxis Naltrexone Analogues Family History Problem Relation Age of Onset Heart attack Father Kidney cancer Brother Melanoma Brother Social History: Social History Substance Use Topics Smoking status: Never Smoker Smokeless tobacco: Never Used Alcohol use No Review of Systems Constitution: Positive for malaise/fatigue. Negative for fever and night sweats. HENT: Negative for nosebleeds. Cardiovascular: Positive for leg swelling. Negative for chest pain, claudication , cyanosis, dyspnea on exertion, irregular heartbeat, near-syncope, orthopnea, p alpitations, paroxysmal nocturnal dyspnea and syncope. Respiratory: Negative for cough, hemoptysis, shortness of breath, sleep disturba nces due to breathing, snoring and wheezing. Endocrine: Positive for cold intolerance. Negative for polydipsia. Hematologic/Lymphatic: Does not bruise/bleed easily. Skin: Negative for rash. Musculoskeletal: Negative for joint pain and myalgias. Gastrointestinal: Negative for dysphagia, hematochezia, nausea and vomiting. Genitourinary: Negative for hematuria. Neurological: Negative for brief paralysis, disturbances in coordination, excess travis daytime sleepiness, dizziness, focal weakness, light-headedness, loss of bal ance, numbness and paresthesias. All other systems reviewed and are negative. Vital Signs 12/26/18 1340 12/26/18 1341 BP: 117/56 113/59 Pulse: 80 Weight: 61.7 kg (136 lb) Height: 1.575 m (5' 2") BMI: Body mass index is 24.87 kg/m. Physical Exam Constitutional: She appears well-developed. No distress. HENT: Head: Normocephalic and atraumatic. Eyes: No scleral icterus. Neck: Normal range of motion. Neck supple. No JVD present. Cardiovascular: Normal rate. Murmur heard. Pulmonary/Chest: Effort normal and breath sounds normal. Abdominal: Soft. Musculoskeletal: Normal range of motion. She exhibits no edema. Neurological: She is alert. No cranial nerve deficit. Skin: Skin is warm. Psychiatric: She has a normal mood and affect. Vitals reviewed. Cholesterol (no units) Date Value 12/26/2018 200 03/23/2016 158 HDL Cholesterol (mg/dL) Date Value 12/26/2018 50 Triglycerides (mg/dL) Date Value 12/26/2018 177 (A) 03/23/2016 80 LDL Cholesterol Date/Time Value Ref Range Status 12/26/2018 02:44 PM 115 mg/dL Final 03/23/2016 102 mg/dL Final EKG: Sinus rhythm, rate 80, with left bundle morphology. She has a known left bundle branch block. Encounter Diagnoses Name Primary? Chronic diastolic congestive heart failure (HCC) Yes Mitral valve insufficiency, unspecified etiology Bradycardia Laboratory exam ordered as part of routine general medical examination Exertional dyspnea Pulmonary hypertension (HCC) Fatigue, unspecified type Impression: 1. Profound fatigue. I am not convinced this is of primary cardiac etiology. She does self-report a heart rate of 20 beats per minute, though I do feel she i s not detecting or the monitor is not reporting accurately. One could consider her mitral regurgitation as a source, though her symptoms of dyspnea have not ne cessarily changed, though she is limited by dyspnea on exertion. 2. Mitral regurgitation. 3. Diastolic dysfunction. She did self-discontinue spironolactone as she felt it was contributing to her bradycardia. 4. Remote history of type 2 myocardial infarction with normal coronary arteries per angiogram. Plan: 1. I did review risk factors and updates on preventive strategies. 2. I have suggested laboratory to include CBC, CMP, TSH, and lipid profile to a ssist in evaluation of profound fatigue. 3. Zio Patch. My clinical suspicion that her heart rate at times has been 20 b eats per minute is low. However, in the setting of profound fatigue, I do want to exclude symptomatic bradycardia. 4. Cardiac MRI to further evaluate MR. 5. I will review the results of the above with her with further recommendations . Treatment goals, progress, and next steps, as above, were discussed and mutually agreed upon with the patient/family. Thank you for allowing me to participate in Melanie Reeves's care. If I can be of an y further assistance, please do not hesitate to contact me. Sincerely, Ruth Garcia MD /david documented in this encounter Plan of Treatment Order Schedule Name Type Priority Associated Diag noses 1 Occurrences starting 12/26/2018 until 12/27/2019 Cardiac Monitoring Patch Cardiac Routine [facility] 1 Occurrences starting 12/26/2018 until 12/27/2019 CV MRI Cardiac w wo Cardiac Routine Chronic di astolic contrast Services congestive heart fa ilure (HCC) Mitral valve insufficiency, unspecified etiology documented as of this encounter Procedures Comments Procedure Name Priority Date/Time Associated Diag nosis POCT LIPID PANEL Routine 12/26/2018 Chronic diast olic 2:44 PM CDT congestive heart failure (HCC) ECG Routine 12/26/2018 Chronic diastol ic 1:37 PM CDT congestive heart failure (HCC) Mitral valve insufficiency, unspecified etiology documented in this encounter Results * Thyroid Stimulating Hormone (12/26/2018 3:06 PM CDT) Thyroid 0.15 (L) 0.47 - 4.68 uIU/mL [facility] LABORATORIES Specimen Blood Performing Organization Address City/State/[facility] Ph one Number [facility] [address] [place] [address] LABORATORIES * Comprehensive Metabolic Panel (12/26/2018 3:06 PM CDT) Pathologist [facility] Sodium 138 133 - 147 MEQ/L [facility] Potassium 4.6 3.5 - 5.3 MEQ/L [facility] Chloride 103 96 - 112 MEQ/L [facility] Carbon Dioxide 30 20 - 32 MEQ/L [facility] Anion Gap 6 5 - 17 [facility] Calcium 9.3 8.4 - 10.5 mg/dL [facility] Glucose 88 70 - 100 mg/dL [facility] Protein Total 6.5 6.0 - 8.2 g/dL [facility] Serum [facility] Albumin 3.7 3.5 - 5.0 g/dL [facility] Alkaline 85 42 - 140 IU/L [facility] Phosphatase [facility] Alanine 25 0 - 34 IU/L [facility] Aminotransferas [facility] Aspartate 31 15 - 46 IU/L [facility] Aminotransferas [facility] Bilirubin Total 0.4 0.2 - 1.3 mg/dL [facility] Blood Urea 19 7 - 26 mg/dL [facility] Nitrogen [facility] Creatinine 0.7 0.4 - 1.1 mg/dL [facility] eGFR Female AA 96 60 - 200 [facility] mL/min/1.73sq m [facility] eGFR Female 80 60 - 200 [facility] Non-AA mL/min/1.73sq m [facility] Specimen Blood Performing Organization Address City/[facility] Ph one Number [facility] [address] [place] [address] LABORATORIES * CBC and Diff (manual diff if necessary) (12/26/2018 3:06 PM CDT) WBC 6.66 4.00 - 11.00 TH/uL [facility] RBC 4.18 4.00 - 5.00 MIL/uL [facility] Hemoglobin 12.9 12.0 - 15.0 g/dL [facility] Hematocrit 39 36 - 45 % [facility] MCV 93 80 - 99 fL [facility] MCH 31 27 - 34 pg [facility] MCHC 33 32 - 36 % [facility] RDW 13.3 11.5 - 14.5 % [facility] Platelet Count 190 140 - 400 TH/uL [facility] MPV 12.2 9.4 - 12.3 fL [facility] Nucleated RBCs 0 0 - 0 /100 [facility] % Neutrophils 68 45 - 78 % [facility] %Lymphocytes 17 15 - 47 % [facility] %Monocytes 11 0 - 12 % [facility] %Eosinophils 2 0 - 7 % [facility] %Basophils 1 0 - 2 % [facility] % Imm Grans 0 0 - 1 % [facility] # Granulocytes 4.57 1.70 - 6.80 TH/uL [facility] # Lymphocytes 1.13 1.00 - 3.30 TH/uL [facility] # Monocytes 0.76 0.20 - 0.90 TH/uL [facility] # Eosinophils 0.16 0.00 - 0.40 TH/uL [facility] # Basophils 0.04 0.00 - 0.10 TH/uL [facility] Specimen Blood Performing Organization Address City/State/Zipcode Ph one Number [address] [address] LABORATORIES * POCT Lipid Panel (12/26/2018 2:44 PM CDT) Cholesterol 200 HDL Cholesterol 50 35 - 70 mg/dL Triglycerides 177 (A) 40 - 160 mg/dL LDL Cholesterol 115 mg/dL Non-HDL 150 Cholesterol Cholesterol/HDL 4.0 Ratio Glucose 89 mg/dL Specimen Blood Narrative Performed At This result has an attachment that is n ot available. * Electrocardiogram (ECG) (12/26/2018 1:37 PM CDT) QRSd 118 [facility] QT 416 [facility] QTC 477 [facility] ECGHR 79 [facility] ECGPR 184 [facility] Specimen Narrative Performed At [facility] Test Date: 2018-12-26 Pat Name: MELANIE REEVES Department: [facility] Room: Gender: Female Shift Boss: ZAHEER : 1935 Requested By: RUTH GARCIA Order Number: [id number] Reading MD: Ruth Garcia Measurements Intervals [place]man Rate: 79 P: 45 GA: 184 QRS: -10 QRSD: 118 T: 87 QT: 416 QTc: 477 Interpretive Statements SINUS RHYTHM INCOMPLETE LEFT BUNDLE BRANCH BLOCK Electronically Signed On 12-26-2018 22:47 :51 CDT by Ruth Garcia Procedure Note Interface, External Ris In 12/26/2018 10:48 PM CDT [facility] Test Date: 2018-12-26 Pat Name: MELANIE NOELELICIA Department: [facility] Room: Gender: Female Shift Boss: ZAHEER : 1935 Requested By: RUTH GARCIA Order Number: [id number] Reading MD: Ruth Garcia Measurements Intervals [place]man Rate: 79 P: 45 GA: 184 QRS: -10 QRSD: 118 T: 87 QT: 416 QTc: 477 Interpretive Statements SINUS RHYTHM INCOMPLETE LEFT BUNDLE BRANCH BLOCK Electronically Signed On 12-26-2018 22:47:51 CDT by Ruth Garcia Performing Organization Address City/State/Zipcode Ph one Number [facility] documented in this encounter Visit Diagnoses Diagnosis Chronic diastolic congestive heart fail ure (HCC) Mitral valve insufficiency, unspecified etiology Bradycardia Other specified cardiac dysrhythmias Laboratory exam ordered as part of rout ine general medical examination Laboratory examination ordered as part of a routine general medical examination Exertional dyspnea Other dyspnea and respiratory abnormali ty Pulmonary hypertension (HCC) Other chronic pulmonary heart diseases Fatigue, unspecified type documented in this encounter
--- OUTSIDE RECORDS SUMMARY | 2019-11-07 17:52 | XMS REPORT | Encounter Summary ---
Author Author [facility] Organization [facility] Address Unknown Phone Unavailable Care Team Providers Care Painter Spray Name Role Phone CoonSaleem munguia PCP Reason for Visit * Reason Comments Lab results Encounter Details Care Team Description Date Type Department Forest Hawkins RN Lab results 04/02/2018 Telephone [facility] [address] [place] [address] Social History Date Tobacco Use Types Packs/Day [...] encounter Miscellaneous Notes * Telephone Encounter - Forest Hawkins RN - 04/02/2018 2:40 PM CDT Noted results of CBC, BMP, Mag & NTproBNP w/ recs per [facility], called pt to discuss. Was not able to reach pt but LVM at home # explaining overall results w/ glucose and NTproBNP being elevated. Stated we hope she was seen in an ER as indicated on 03/27 and asked her to please call and update us when she has a chance. bassam * Telephone Encounter - Forest Hawkins RN - 04/02/2018 2:40 PM CDT ----- Message from Sommer Clarke MD sent at 03/28/2018 11:18 AM CDT ----- Normal blood counts, kidney function and blood salts. Suggestion of elevated pressure in the heart which may relate to retained fluid and recommend continuing on lasix. Blood sugar mildly elevated, follow-up with PCP. I see notes that she couldn't come to appointment yesterday and was going to go to ER but no ER notes. Can we follow-up please to ensure she has appt planned. documented in this encounter Plan of Treatment Not on filedocumented as of this encounter Visit Diagnoses Not on filedocumented in this encounter
--- OUTSIDE RECORDS SUMMARY | 2019-11-07 17:52 | XMS REPORT | Encounter Summary ---
Author Author Organization Address Unknown Phone Unavailable Care Team Providers Care Coffee Plantation Worker Name Role Phone Saleem Coon PCP Encounter Details Care Team Description Date Type Department Ruth Garcia MD [address] [facility] [address] [place] [address] 12/10/2018 Documentation [facility] [address] [place] [address] [address] [place] [id number] Social History Date Tobacco Use Types Packs/Day [...]
--- OUTSIDE RECORDS SUMMARY | 2019-11-07 17:52 | XMS REPORT | Encounter Summary ---
Author Author [facility] Organization [facility] Address Unknown Phone Unavailable Care Team Providers Care Stick Inserter Name Role Phone Saleem Coon PCP Encounter Details Care Team Description Date Type Department Ruth Garcia MD [address] [facility] [address] [place] [address] 04/05/2018 Documentation [facility] [address] [place] [address] [address] [place] [address] Social History Date Tobacco Use Types Packs/Day [...]
--- OUTSIDE RECORDS SUMMARY | 2019-11-07 17:52 | XMS REPORT | Encounter Summary ---
Author Author [facility] Organization [facility] Address Unknown Phone Unavailable Care Team Providers Care Airframe And Powerplant Technician Name Role Phone Saleem Coon PCP Encounter Details Care Team Description Date Type Department Ruth Garcia MD [address] [place] [address] [phone] 12/26/2018 Transcribe [facility] Hospit [facility] Orders [address] [place] [address] Social History Date Tobacco Use Types Packs/Day [...]
--- OUTSIDE RECORDS SUMMARY | 2019-11-07 17:52 | XMS REPORT | Encounter Summary ---
Author Author [facility] Organization [facility] Address Unknown Phone Unavailable Care Team Providers Care Bibliographic Services Specialist Name Role Phone Saleem Coon PCP Encounter Details Care Team Description Date Type Department Sommer Clarke MD [address] [facility] [address] [place] [address] [phone] 12/05/2016 Documentation [facility] [address] [facility] [address] [place] [address] Social History Date Tobacco Use Types Packs/Day [...]
--- OUTSIDE RECORDS SUMMARY | 2019-11-07 17:52 | XMS REPORT | Encounter Summary ---
Author Author [facility] Organization [facility] Address Unknown Phone Unavailable Care Team Providers Care Wage And Salary Administrator Name Role Phone Saleem Coon PCP Encounter Details Care Team Description Date Type Department Kenya Castañeda RN 12/24/2018 Abstract [facility] [address] [facility] [address] [place] [address] Social History Date Tobacco Use Types Packs/Day [...]
--- OUTSIDE RECORDS SUMMARY | 2019-11-07 17:52 | XMS REPORT | Encounter Summary ---
Author Author [facility] Organization [facility] Address Unknown Phone Unavailable Care Team Providers Care Reconciler Name Role Phone Saleem Coon PCP Encounter Details Care Team Description Date Type Department Ruth Garcia MD [address] [place] [address] [phone] Low TSH level; Hyperthyroidism 01/03/2019 Orders Only [facility] [address] [place] [address] Social History Date Tobacco Use Types Packs/Day [...] filedocumented as of this encounter Visit Diagnoses Diagnosis Low TSH level Hyperthyroidism Thyrotoxicosis without mention of goite r or other cause, without mention of thyrotoxic crisis or storm documented in this encounter
--- OUTSIDE RECORDS SUMMARY | 2019-11-07 17:52 | XMS REPORT | Encounter Summary ---
Author Author [facility] Organization [facility] Address Unknown Phone Unavailable Care Team Providers Care Textile Machine Maintenance Mechanic Name Role Phone Saleem Coon PCP Reason for Visit * Reason Comments JEREMIAH Encounter Details Care Team Description Date Type Department Inessa Haile, RN JEREMIAH 11/16/2016 Telephone [facility] [address] [place] [address] Social History Date Tobacco Use Types Packs/Day [...] encounter Miscellaneous Notes * Telephone Encounter - Aracelis Lopez RN - 12/05/2016 3:06 PM CDT CD of Echo arrived today. Given to BAA for review. * Telephone Encounter - Alejandra Minor - 11/17/2016 11:26 AM CDT 11/17 pt is scheduled with BAA on 12/22 * Telephone Encounter - Inessa Haile RN - 11/16/2016 4:44 PM CDT 11-16-16 - pt called to report that she had her Echo completed at [facility] on 11-10-16 and wanted to make sure we were able to get the CD. Called and notified pt we would request. Also she asked to get follow up appt with BAA. Lamberto apple route message to BAA and schedulers. documented in this encounter Plan of Treatment Not on filedocumented as of this encounter Visit Diagnoses Not on filedocumented in this encounter
--- OUTSIDE RECORDS SUMMARY | 2019-11-07 17:52 | XMS REPORT | Encounter Summary ---
Author Author [facility] Organization [facility] Address Unknown Phone Unavailable Care Team Providers Care Red Hat Engineer Name Role Phone Saleem Coon PCP Encounter Details Care Team Description Date Type Department Sarai Rodriguez RN 05/13/2018 Abstract [facility] [address] [place] [address] Social History Date Tobacco Use Types Packs/Day [...] Procedure Name Priority Date/Time Associated Diag nosis HOLTER OUTSIDE RECORD Routine 04/05/2018 ECHO OUTSIDE RECORD Routine 04/05/2018 documented in this encounter Results * Holter Outside Record (04/05/2018) Impressions Performed At [facility]ITOR ([place]) IMPRESSION: 1. Sinus rhythm with brief periods of m ild sinus bradycardia and periods of sinus tachycardia. 2. Isolated PVCs. 3. Occasional PACs with 3 very brief (3 - to 5-beat) runs of supraventricular tachycardia. 4. No pauses. * Echo Outside Record (04/05/2018) Ejection Fraction Impressions Performed At ECHO COMPLETE ([place]) Result Impression: 1. Normal left ventricular size and sys tolic function. 2. Moderate to severe mitral regurgitat ion with surprisingly normal left atrial size. 3. Mild to moderate tricuspid regurgita tion with calculated RV systolic pressure consistent with moderate pulmo nary hypertension. There is associated right-sided chamber enlargem ent. 4. Mild pulmonic insufficiency. 5. Aortic valve sclerosis with no signi ficant aortic stenosis. documented in this encounter Visit Diagnoses Diagnosis Family history of coronary artery disea se Family history of ischemic heart diseas e Chronic diastolic congestive heart fail ure (HCC) documented in this encounter
--- OUTSIDE RECORDS SUMMARY | 2019-11-07 17:52 | XMS REPORT | Encounter Summary ---
Author Author [facility] Organization [facility] Address Unknown Phone Unavailable Care Team Providers Care Schedule Supervisor Name Role Phone Saleem Coon PCP Encounter Details Care Team Description Date Type Department Mimi Qureshi MD [address] [place] [address] 03/26/2018 Documentation [facility] [address] [place] [id number] Social History Date Tobacco Use Types Packs/Day [...]
--- OUTSIDE RECORDS SUMMARY | 2019-11-07 17:52 | XMS REPORT | Encounter Summary ---
Author Author [facility] Organization [facility] Address Unknown Phone Unavailable Care Team Providers Care Reclamation Supervisor Name Role Phone Saleem Coon PCP Reason for Referral * MRI/CAT/PET Scan (Routine) Referred By Contact Referred To Contact Status Reason Specialty Diagnoses / Procedures Ruth Garcia MD [address] [place] [address] [facility] [address] [place] [id number] Canceled Radiology Diagnoses Mitral valve insufficiency, unspecified etiology Exertional dyspnea P rocedures CV MRI Cardiac w wo contrast Reason for Visit * Reason Comments Follow-up Congestive Heart Failure Encounter Details Care Team Description Date Type Department Ruth Garcia MD [address] [place] [address] [phone] Mitral valve insufficiency, unspecified etiology (Primary Dx); Exertional dyspnea 05/15/2018 Office Visit [facility] [address] [place] [address] Social History Date Tobacco Use Types Packs/Day [...] Signs Reading Time Taken Comments Vital Sign 137/71 05/15/2018 10:00 AM CDT Blood Pressure 70 05/15/2018 10:00 AM CDT reg Pulse - - Temperature - - Respiratory Rate - - Oxygen Saturation - - Inhaled Oxygen Concentration 62.1 kg (137 lb) 05/15/2018 10:00 AM CDT Weight 157.5 cm (5' 2") 05/15/2018 10:00 AM CDT Height 25.06 05/15/2018 10:00 AM CDT Body Mass Index documented in this encounter Patient Instructions * Patient Instructions* Tabatha Hawkins RN - 05/15/2018 10:20 AM CDT Your doctor has ordered the following test(s): MRI to be scheduled at your earli est convenience. A nurse will contact you with the results and your doctor's r ecommendations approximately 7-10 business days after the test has been complete d. Medication Instructions: Metoprolol Tartrate 12.5 mg as needed for bothersome ec topy or palpitations. Follow up with MD Dr. Ruth Garcia based on test results. Please call the Nurse Line at [phone] ([facility] [employer] Team). with any questions or concerns. For medication refill needs, please first contact your pharmacy. For any [facility] scheduling questions, please landry apple . At [facility], high quality patient care is our top priority. To ensure our cardiovascular standards are continuously met, you may receive a survey via [employer] or text message, and we ask that you please take the time to fill it out. We strive to ensure you are very satisfied with every visit. Thank you in advance for taking the time to fill this out. It was a pleasure to meet you. documented in this encounter Progress Notes * Ruth Garcia MD - 05/15/2018 10:20 AM CDT [facility] Sarah Appointment Date: 05/15/2018 Saleem Coon DO [address] [place] [id number] RE: Melanie Melissa : 1935 Visit provider: Ruth Garcia MD Dear Saleem Coon DO, I had the pleasure of seeing Melanie Melissa in the office today. She is a(n) 83 y.o. female and presents with the following chief complaint(s): Follow-up and Congest travis Heart Failure HPI: Ms. Melissa is an 83-year-old female whom we have followed with a history of sams tolic dysfunction and history of mitral regurgitation. She has been traditional ly followed by my colleague, Dr. Sommer Clarke. Recently, Ms. Melissa underwent cardiac evaluation in [place] for worsening fatigu e and ectopy. A Holter monitor documented sinus rhythm with occasional PACs and PVCs. A transthoracic echocardiogram documented normal systolic function and n ormal chamber dimensions with moderate to severe mitral regurgitation present. Today, she continues to report general fatigue. She does note ectopy that is ji thersome when she lies down. She does have dyspnea on exertion. The recommenda tions at the time of her last visit was for a LANE to further evaluate her mitral valve. However, it was felt she has contraindications to LANE due to an epiglot tis situation. She denies dyspnea at rest, orthopnea, PND, lower extremity edema, syncope, arturo dication or stroke. She does take Lasix on an occasional basis. Patient Active Problem List Diagnosis SNOMED CT(R) [...] dyspnea Family history of coronary artery disease Hypothyroidism Mitral regurgitation Mitral valve prolapse 11/06/2016 Multiple sclerosis (HCC) Pulmonary hypertension (HCC) 03/2015 Moderate per Echo Past Surgical History: Procedure Laterality Date APPENDECTOMY CARDIAC CATHETERIZATION 03/24/2016 No angiographic evidence of coronary artery disease. ([facility]) HYSTERECTOMY RIGHT HEART CATH 03/24/2016 RA: 7. RV: 41/9. PA: 38/11/20. Wedge: 15 with V-waves to 25. LV: 143/13, Ascend ing aortic pressure: 145/61. CO/CI ([facility]): 3.6/2.1. LVEF 55%. ([facility]) TONSILLECTOMY Final Medications: Current Outpatient Prescriptions Medication Sig Dispense Refill thyroid, pork, (ARMOUR) 60 mg Tab tablet Take 90 mg by mouth daily. metoprolol tartrate (LOPRESSOR) 25 MG tablet Take 0.5 tablets (12.5 mg total ) by mouth daily as needed. For bothersome ectopy or palpitations. 45 tablet 3 No current facility-administered medications for this visit. Allergies Allergen Reactions Anoop-1 Anaphylaxis All CARMELA--lidocaine, novacaine............. Lasix [Furosemide] Anaphylaxis Naltrexone Analogues Family History Problem Relation Age of Onset Heart attack Father Kidney cancer Brother Melanoma Brother Social History: Social History Substance Use Topics Smoking status: Never Smoker Smokeless tobacco: Never Used Alcohol use No Review of Systems Constitution: Positive for malaise/fatigue. Negative for fever and night sweats. HENT: Negative for nosebleeds. Cardiovascular: Positive for dyspnea on exertion and leg swelling. Negative for chest pain, claudication, cyanosis, irregular heartbeat, near-syncope, orthopnea , palpitations, paroxysmal nocturnal dyspnea and syncope. Respiratory: Positive for shortness of breath. Negative for cough, hemoptysis, s leep disturbances due to breathing, snoring, sputum production and wheezing. Endocrine: Positive for cold intolerance. Negative for polydipsia. Hematologic/Lymphatic: Does not bruise/bleed easily. Skin: Negative for rash. Musculoskeletal: Negative for joint pain and myalgias. Gastrointestinal: Negative for dysphagia, hematochezia, nausea and vomiting. Genitourinary: Negative for hematuria. Neurological: Positive for loss of balance. Negative for disturbances in coordin ation, excessive daytime sleepiness, dizziness, focal weakness, headaches, light -headedness, numbness and paresthesias. All other systems reviewed and are negative. Vital Signs 05/15/18 1000 BP: 137/71 Pulse: 70 Weight: 62.1 kg (137 lb) Height: 1.575 m (5' 2") BMI: Body mass index is 25.06 kg/m. Physical Exam Constitutional: She is oriented to person, place, and time. She appears well-dev eloped. Eyes: Pupils are equal, round, and reactive to light. Neck: No JVD present. Cardiovascular: Normal rate. Murmur heard. Pulmonary/Chest: Effort normal and breath sounds normal. Abdominal: Soft. Musculoskeletal: She exhibits no edema. Neurological: She is alert and oriented to person, place, and time. Skin: Skin is warm. Psychiatric: She has a normal mood and affect. Vitals reviewed. Cholesterol (no units) Date Value 03/23/2016 158 Triglycerides (mg/dL) Date Value 03/23/2016 80 LDL Cholesterol Date/Time Value Ref Range Status 03/23/2016 102 mg/dL Final Encounter Diagnoses Name Primary? Mitral valve insufficiency, unspecified etiology Yes Exertional dyspnea Impression: 1. Constitutional symptoms of general fatigue, dyspnea on exertion and symptoma tic ectopy. On her exam today, she does have the expected systolic murmur with suspect PACs and PVCs on exam. Her underlying rhythm was regular. 2. Mitral regurgitation. Her last assessment revealed normal systolic function with normal LV dimensions and moderate to severe mitral regurgitation with norm al atrial dimensions. Her pulmonary pressure was 45 mmHg. 3. Diastolic dysfunction without need for daily diuretic therapy. Her blood pr essure is under good control. 4. 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 Plan: 1. I did review risk factors and updates on preventive strategies. 2. I did concur with recommendations for consideration of a low-dose beta block er. She is quite hesitant about it impacting her blood pressure. She is agreea ble to a very low dose of metoprolol tartrate 25 mg with taking a one-half table t more on a p.r.n. basis first for observation of associated improvement in symp toms. 3. In that a LANE is felt to be contraindicated at this time, I have suggested a cardiac MRI, which she is interested in pursuing. I will review these results with her with further recommendations. Treatment goals, progress and next steps, as above, were discussed and mutually agreed upon with the patient/family. Thank you for allowing me to participate in Melanie Melissa's care. If I can be of an y further assistance, please do not hesitate to contact me. Sincerely, Ruth Garcia MD /[facility] documented in this encounter Plan of Treatment Order Schedule Name Type Priority Associated Diag noses 1 Occurrences starting 05/15/2018 until 05/15/2019 CV MRI Cardiac w wo Cardiac Routine Mitral jesus ve contrast Services insufficiency, unspecified etiology Exertional dyspnea documented as of this encounter Visit Diagnoses Diagnosis Mitral valve insufficiency, unspecified etiology Exertional dyspnea Other dyspnea and respiratory abnormali ty documented in this encounter
--- OUTSIDE RECORDS SUMMARY | 2019-11-07 17:52 | XMS REPORT | Encounter Summary ---
Author Author [facility] Organization [facility] Address Unknown Phone Unavailable Care Team Providers Care Mri Manager Name Role Phone CoonSaleem munguia PCP Reason for Visit * Reason Comments Returning patient call Encounter Details Care Team Description Date Type Department Tabatha Hawkins, RN Returning patient call 06/03/2018 Telephone [facility] [address] [place] [address] Social History Date Tobacco Use Types Packs/Day [...] Telephone Encounter - Tabatha Hawkins RN - 06/03/2018 12:11 PM CDT Received a VM from pt reporting she needs to have a recent Cr done within 60 day s before her next apt. Pt reports she checked her records and had a Cr drawn 67 days ago. Pt is wondering if this Cr would be sufficient. Chart reviewed. Pt has a Cardiac MRI scheduled on 06/11/18. I attempted to return pt's call. Call went to VM. I did leave a message includin g if Cr is for the Cardiac MRI, she will need to have an updated level drawn. Ca ll back number left if there are any other questions or concerns. documented in this encounter Plan of Treatment Not on filedocumented as of this encounter Visit Diagnoses Not on filedocumented in this encounter
--- OUTSIDE RECORDS SUMMARY | 2019-11-07 17:52 | XMS REPORT | Encounter Summary ---
Author Author [facility] Organization [facility] Address Unknown Phone Unavailable Care Team Providers Care Food Products Tester Name Role Phone Saleem Coon PCP Encounter Details Care Team Description Date Type Department Ruth Garcia MD [address] [place] [address] [phone] 05/02/2018 Documentation [facility] [address] [place] [address] Social History Date Tobacco Use Types Packs/Day [...]
--- OUTSIDE RECORDS SUMMARY | 2019-11-07 17:52 | XMS REPORT | Encounter Summary ---
Author Author [facility] Organization [facility] Address Unknown Phone Unavailable Care Team Providers Care Soda Jerker Name Role Phone Saleem Coon PCP Encounter Details Care Team Description Date Type Department Ashley Pinzon RN 03/26/2018 Telephone [facility] [address] [place] [address] Social History Date Tobacco Use Types Packs/Day [...] encounter Miscellaneous Notes * Telephone Encounter - Orquidea Holguin LPN - 03/27/2018 10:38 AM CDT 03/27- Pt's daughter called in this AM to report that she is not feeling well and I snot able to make her appt and will just come to the ER. Appt was cancelled by daughter that was made on 03/26/18 by my nurse partner. Reviewed chart and called [facility] and Rounding Nurse to advise that pt will be heading in by private vehi vipul. Pt was going to have labs completed on yesterday so I am sending a request to [facility] and see if they can get those records in the chart. * Telephone Encounter - Ashley Pinzon RN - 03/26/2018 2:08 PM CDT Received call from [facility] requesting a diagnosis code for BNP. Provided chronic diastolic HF ICD-10-CM:I50.32. Lab stated this is sufficient. * Telephone Encounter - Eliazar Javier RN - 03/26/2018 12:32 PM CDT Received [facility] recs. Made call to patient and spoke with daughter and patient. Dariela giraldo would like to have lab drawn today at [facility] in [place] rather than comin g to [facility] earlier than appointment to have drawn. Stated that would be fine. Lab s ordered and faxed to [phone] with confirmation fax. * Telephone Encounter - Sommer Clarke MD - 03/26/2018 12:22 PM CDT Yes would like CBC, BMP, BNP, Mg, stay on lasix until seen tomorrow. * Telephone Encounter - Ashley Pinzon RN - 03/26/2018 10:38 AM CDT Received life transfer call from fire claims adjuster stating the daughter of the pt is on the line. Daughter expressed concern that pt cannot get in to see BAA for a few months but is having new symptoms. Daughter put pt on the line and reported that often at night she will wake up wi th "Intense discomfort in my chest.. I get real nauseated." pt reports "activity in my chest" and later described as palpitations. Asked pt if she counts her pulse or checks her blood pressure when this happens and for how long they symptoms last. Pt reports she is unaware of time frame due to being" sleepy and droggy ". Pt wi ll fall back asleep and then wake up again later with the same symptoms. Asked pt if she has symptoms during the daytime. Pt states she, "does not really notice during the day...I can't really tell." Pt denies nausea during the day b ut feels palpitations Takes pulse during the day and describes it as "real erratic type of beats" feel s irregular "not real fast.. About 70s-80s" Bp: "When I check my blood pressures sometimes it dips low 80s/40s other times a real wide pulse pressure" Pt does not keep a log, therefore no exact numbers to report. Denies sob and lightheaded/dizzy, but reports feeling "exhausted all the time" Noted to pt her history of heart failure. Inquired if she is noticing swelling o r signs of fluid retention. Pt reports she "I got off the diuretic for a while but I got back on it 2-3 week s ago because I noticed swelling" Pt states her swelling is okay in the morning, but in LE swell in the evenings; abdomen "looks normal in the mornings, but my abdomen looks 6 mo by 2: 00 in the afternoon" Pt weighs daily, but does not keep a log. Pt recalls she used to regularly weigh in the 120s, but lately Weighs in the 130s. Provided pt with homework to check bp/pulse, and weights daily and to keep a log /write on a calendar. Instructed pt to check bp/pulse extra with symptoms, inclu ding during the night. Instructed to call for wt gain 2lbs/24hrs, 3lbs/48hrs, or 5lbs in a week... Provided education that extra fluid on the heart can cause ad mickey stress to the heart. Pt v/u Instructed pt call 911/have someone drive her to ED if having a low bp or fast H R and symptoms (sob, light headed/dizzy, nauseated). Pt v/u. Informed pt [facility]AA will be notified for recs, but also called schedulers to arrange urgent appt [facility] tomorrow 03/27/18 check in at 1:[address] Qureshi. Pt would like any ordered labs to be faxed to [facility] in [place], [place] pt voiced agreement with plans. Will route to BAA. documented in this encounter Plan of Treatment Not on filedocumented as of this encounter Procedures Comments Procedure Name Priority Date/Time Associated Diag nosis NTPROBNP Routine 03/26/2018 Other fatigue Palpitations Other chest pain MAGNESIUM Routine 03/26/2018 Other fatigue Palpitations Other chest pain CBC AND DIFF (MANUAL DIFF Routine 03/26/2018 Othe r fatigue IF NECESSARY) Palpitations Other chest pain BASIC METABOLIC PANEL Routine 03/26/2018 Other fa tigue Palpitations Other chest pain documented in this encounter Results * NTproBNP (03/26/2018) Pathologist [facility] NTproBNP 142 (A) 0 - 100 [facility] Specimen Blood Performing Organization Address [facility] one Number [facility] [address] [place] [address] * Magnesium (03/26/2018) [facility] Magnesium 2.1 1.6 - 2.6 mg/dL [facility] Specimen Blood Performing Organization Address [facility] one Number [facility] [address] [place] [phone] * CBC and Diff (manual diff if necessary) (03/26/2018) [facility] RBC 4.33 3.6 - 5.00 [facility] Hematology [facility] Comments WBC 5.19 5.0 - 10.0 [facility] Hemoglobin 13.4 12.0 - 16.0 g/dL [facility] Hematocrit 41 36 - 46 % [facility] MCV 94.5 82.0 - 108.0 fL [facility] MCH 30.9 26.0 - 34.0 pg [facility] MCHC 32 30 - 37 g/dL [facility] % Neutrophils 63 37 - 80 % [facility] % Imm Grans [facility] %Lymphocytes 27 10 - 50 % [facility] %Monocytes 8 0 - 12 % [facility] %Eosinophils 2 0 - 6 % [facility] %Basophils 0 0 - 3 % [facility] Platelet Count 199 150 - 399 K/L [facility] # Granulocytes [facility] Immature Grans [facility] (Abs) Neutrophils 3.27 2.0 - 6.9 [facility] Absolute # Lymphocytes 1.40 0.60 - 3.40 /L [facility] # Monocytes 0.40 0.20 - 0.80 /L [facility] # Eosinophils 0.10 (A) 0.20 - 0.70 /L [facility] # Basophils 0.00 0.00 - 0.20 /L [facility] Nucleated RBCs 0 - 2 /100 [facility] RDW 13.8 11.5 - 14.5 % [facility] Specimen Blood Narrative Performed At This result has an attachment that is n ot available. Performing Organization Address [facility] one Number [facility] [address] [place] [phone] * Basic Metabolic Panel (03/26/2018) Calcium 8.8 8.5 - 10.8 mg/dL [facility] Glucose 164 (A) 60 - 125 mg/dL [facility] Blood Urea 14 9 - 27 mg/dL [facility] Nitrogen Potassium 4.2 3.4 - 5.3 mmol/L [facility] Sodium 140 132 - 145 mmol/L [facility] Chloride 101 95 - 110 mmol/L [facility] Creatinine 0.8 0.6 - 1.5 mg/dL [facility] Carbon Dioxide 31 24 - 34 mmol/L [facility] BUN/Creatinine 17.3 12 - 20 [facility] Ratio eGFR If [facility] NonAfricn Am eGFR If Africn [facility] Am Specimen Blood Narrative Performed At This result has an attachment that is n ot available. Performing Organization Address City/State/Zipcode Ph one Number [facility] [address] [place] [phone] documented in this encounter Visit Diagnoses Diagnosis Other fatigue Palpitations Other chest pain documented in this encounter
--- OUTSIDE RECORDS SUMMARY | 2019-11-07 17:52 | XMS REPORT | Encounter Summary ---
Author Author [facility] Organization [facility] Address Unknown Phone Unavailable Care Team Providers Care Relations Coordinator Name Role Phone Saleem Coon PCP Encounter Details Care Team Description Date Type Department Ruth Garcia MD [address] [place], [place] [id number] Laboratory exam ordered as part of [facility] general medical examination; Bradycardia 12/26/2018 Lab [facility] [address] [place] [address] Social History Date Tobacco Use Types Packs/Day [...] Procedure Name Priority Date/Time Associated Diag nosis TRIIODOTHYRONINE Add-On 12/26/2018 3:06 PM CDT THYROID STIMULATING Routine 12/26/2018 Bradycardi a HORMONE 3:06 PM CDT Laboratory exam ord ered as part of routine general medical examination THYROID CASCADE Add-On 12/26/2018 3:06 PM CDT T4 FREE Add-On 12/26/2018 3:06 PM CDT COMPREHENSIVE METABOLIC Routine 12/26/2018 Labora tory exam ordered PANEL 3:06 PM CDT as part of routine general medical examination CBC AND DIFF (MANUAL DIFF Routine 12/26/2018 Labo ratory exam ordered IF NECESSARY) 3:06 PM CDT as part of routine general medical examination documented in this encounter Results * Triiodothyronine (12/26/2018 3:06 PM CDT) Triiodothyronin 1.0 1.0 - 1.7 ng/mL [facility] Specimen Blood Performing Organization Address [facility] one Number [address] [address] LABORATORIES * T4 Free (12/26/2018 3:06 PM CDT) T4 Free 1.0 0.8 - 2.2 ng/dL [facility] Specimen Blood Performing Organization Address [facility] one Number [address] [address] LABORATORIES * Thyroid Victoria (12/26/2018 3:06 PM CDT) Thyroid 0.14 (L) 0.47 - 4.68 uIU/mL [facility] Hormone LABORATORIES Specimen Blood Performing Organization Address [facility] one Number [address] [address] LABORATORIES * Thyroid Stimulating Hormone (12/26/2018 3:06 PM CDT) Thyroid 0.15 (L) 0.47 - 4.68 uIU/mL [facility] Hormone LABORATORIES Specimen Blood Performing Organization Address [facility] one Number [address] [address] LABORATORIES * Comprehensive Metabolic Panel (12/26/2018 3:06 PM CDT) Sodium 138 133 - 147 MEQ/L [facility] Potassium 4.6 3.5 - 5.3 MEQ/L [facility] Chloride 103 96 - 112 MEQ/L [facility] Carbon Dioxide 30 20 - 32 MEQ/L [facility] Anion Gap 6 5 - 17 [facility] Calcium 9.3 8.4 - 10.5 mg/dL [facility] Glucose 88 70 - 100 mg/dL [facility] Protein Total 6.5 6.0 - 8.2 g/dL [facility] Serum [facility] Albumin 3.7 3.5 - 5.0 g/dL [facility] Alkaline 85 42 - 140 IU/L [facility] Phosphatase [facility]IES Alanine 25 0 - 34 IU/L [facility] Aminotransferas [facility] e LABORATORIES Aspartate 31 15 - 46 IU/L [facility] Bilirubin Total 0.4 0.2 - 1.3 mg/dL [facility] Blood Urea 19 7 - 26 mg/dL [facility] Nitrogen [facility] Creatinine 0.7 0.4 - 1.1 mg/dL [facility] eGFR Female AA 96 60 - 200 [facility] mL/min/1.73sq m [facility] eGFR Female 80 60 - 200 [facility] Non-AA mL/min/1.73sq m [facility] Specimen Blood Performing Organization Address City/State/Zipcode Ph one Number [address] [address] LABORATORIES * CBC and Diff (manual diff if necessary) (12/26/2018 3:06 PM CDT) WBC 6.66 4.00 - 11.00 TH/uL [facility] RBC 4.18 4.00 - 5.00 MIL/uL [facility] Hemoglobin 12.9 12.0 - 15.0 g/dL [facility] Hematocrit 39 36 - 45 % [facility] MCV 93 80 - 99 fL [facility] MCH 31 27 - 34 pg [facility] MCHC 33 32 - 36 % [facility] RDW 13.3 11.5 - 14.5 % [facility] Platelet Count 190 140 - 400 TH/uL [facility] MPV 12.2 9.4 - 12.3 fL [facility] Nucleated RBCs 0 0 - 0 /100 [facility] % Neutrophils 68 45 - 78 % [facility] %Lymphocytes 17 15 - 47 % [facility] %Monocytes 11 0 - 12 % [facility] %Eosinophils 2 0 - 7 % [facility] %Basophils 1 0 - 2 % [facility] % Imm Grans 0 0 - 1 % [facility] # Granulocytes 4.57 1.70 - 6.80 TH/uL [facility] # Lymphocytes 1.13 1.00 - 3.30 TH/uL [facility] # Monocytes 0.76 0.20 - 0.90 TH/uL [facility] # Eosinophils 0.16 0.00 - 0.40 TH/uL [facility] # Basophils 0.04 0.00 - 0.10 TH/uL [facility] Specimen Blood Performing Organization Address City/State/Zipcode Ph one Number [facility] [address] [place] [address] LABORATORIES documented in this encounter Visit Diagnoses Diagnosis Laboratory exam ordered as part of rout ine general medical examination Laboratory examination ordered as part of a routine general medical examination Bradycardia Other specified cardiac dysrhythmias documented in this encounter
--- OUTSIDE RECORDS SUMMARY | 2019-11-07 17:52 | XMS REPORT | Encounter Summary ---
Author Author [facility] Organization [facility] Address Unknown Phone Unavailable Care Team Providers Care Command Center Officer Name Role Phone Saleem Coon PCP Encounter Details Care Team Description Date Type Department Yasmeen Goncalves RN 12/30/2018 Telephone [facility] [address] [place] [address] Social History Date Tobacco Use Types Packs/Day [...] encounter Miscellaneous Notes * Telephone Encounter - Kateryna Deleon RN - 01/01/2019 4:40 PM CDT Returned call to pts daughter and informed her of Dr. Jose mckenna. She v/u and states that they are following up with pts PCP regarding her thyroid. I informed her if once her thyroid is treated if she continues to have symptoms to call us back. She v/u. * Telephone Encounter - Ruth Garcia MD - 12/30/2018 4:15 PM CDT Ok to dc and defer monitor. Suspect her sxs in part related to abnormal thyroid noted on recent blood test; please verify is following up with PCP * Telephone Encounter - Yasmeen Goncalves RN - 12/30/2018 1:51 PM CDT Returned call to patient's dtrWyatta, who reports that she just found out patidarren t's zio patch only lasted about one day and she has not been wearing since. Gilmar sed her to call the customer service number on the patch box/info to let them kn ow it didn't stick and so mailing back in early. Discussed possibly trying [facility] er heart monitor/event recorder, and dtr expressed concerns of pt being able to keep on. She states that she has been battling with some type of dementia, thoug h the patient refuses to believe it, and has a hard time remembering to leave th ings on and alone. Will pass along to for recs. Pt dtr would like CV MRI scheduling to call her to schedule appt as patient is f orgetful and dtr is transportation. Note placed on appt for scheduling order wit [facility] Sparks. Gave results and recs per Dr. Garcia of recent lab testing. Ruth Garcia MD P [facility] Nurses - Team Blue Please run thyroid cascade off of blood in lab; may be hyperthyroid which may be culprit of sxs Called [facility], spoke with Oneil, and able to add on thyroid cascade to labs. Anuel quick. 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
--- OUTSIDE RECORDS SUMMARY | 2019-11-07 17:52 | XMS REPORT | Encounter Summary ---
Author Author Organization Address Unknown Phone Unavailable Care Team Providers Care Geosciences Associate Professor Name Role Phone Saleem Coon PCP Reason for Visit * Reason Comments Appointment Encounter Details Care Team Description Date Type Department Ishmael Schultz, OMAR Appointment 12/05/2018 Telephone [facility] [address] [place] [address] Social History Date Tobacco Use Types Packs/Day [...] encounter Miscellaneous Notes * Telephone Encounter - Carlita Dasilva - 12/12/2018 3:22 PM CDT Patient is already scheduled with TLS 12/26. * Telephone Encounter - Perri Torres - 12/06/2018 5:07 PM CDT Called and spoke to pt and notified her of rec to see Dr. Garcia prior to cameron orourke the decision about needing an MRI. She v/u and will await a call from [facility]. Routing to scheduling. * Telephone Encounter - Ruth Garcia MD - 12/05/2018 3:22 PM CDT Favor revisit with OV * Telephone Encounter - Ishmael Schultz RN - 12/05/2018 2:43 PM CDT Pt's daughter called. She wants Pt to start seeing Dr Garcia again. Pt had a pr evious order of a CV MRI, then cancelled it. Pt's daughter wants to ask Dr Aaron gutierrez if we need to re-order that, and anything else, before her Mother should come in for a Visit. documented in this encounter Plan of Treatment Not on filedocumented as of this encounter Visit Diagnoses Not on filedocumented in this encounter
--- OUTSIDE RECORDS SUMMARY | 2019-11-07 17:53 | XMS REPORT | Encounter Summary ---
Author Author [facility] Address Unknown Phone Unavailable Care Team Providers Care Case Finisher Name Role Phone Saleem Coon PCP Encounter Details Care Team Description Date Type Department Macie Parr RN 04/06/2016 Abstract [facility] [address] [place] [address] Social History Date Tobacco Use Types Packs/Day [...]
--- OUTSIDE RECORDS SUMMARY | 2019-11-07 17:53 | XMS REPORT | Encounter Summary ---
Author Author [facility] Organization [facility] Address Unknown Phone Unavailable Care Team Providers Care Customer Servicer Name Role Phone Saleem Coon PCP Reason for Visit * Reason Comments LANE cancellation Encounter Details Care Team Description Date Type Department Lorna Rojas RN LANE cancellation 11/06/2016 Telephone [facility] [address] [place] [address] Social History Date Tobacco Use Types Packs/Day Years Used Never Smoker Smokeless Tobacco: Never Used Drinks/Week oz/Week Comments Alcohol Use No Sex Assigned at Date Recorded Not on file Industry Job Start Date Occupation Not on file Not on file Not on file Travel End Travel History Travel Start No recent travel history available. documented as of this encounter Miscellaneous Notes * Addendum Note - Lorna Rojas RN - 11/06/2016 5:50 PM CDT Addended by: LORNA ROJAS on: 11/06/2016 05:50 PM Modules accepted: Orders, SmartSet * Telephone Encounter - Lorna Rojas RN - 11/06/2016 5:27 PM CDT Made call to patient with [facility] rec. Asked patient to call office and let us know when her echo would be performed as [facility] would like to review it prior to her fo llow up appointment in November. Also discussed pt symptoms and if worsened should proceed to ER for evaluation. Pt. V/u. Made call to and spoke with Order entered for echo and faxed to [facility] echo department at [phone] with request to send CD of echo to [facility] for viewing. * Telephone Encounter - Sommer Clarke MD - 11/06/2016 5:22 PM CDT Doesn't sound like lasix helped. Let's wait to see what TTE shows, ok to have a t [facility] as long as I can get films to review images personally prior to office v isit to review. * Telephone Encounter - Lorna Rojas RN - 11/06/2016 4:57 PM CDT Received following email from [facility]: Lets change to TTE for mitral valve prolapsed and mitral regurgitation, HF. Is she still taking diuretic? If so we are due for repeat labs. Made call to patient. She states she has only taken the 10mg lasix 2 days - pro bably 11/01 and 11/03. She states the is the last day she took the med. She states she cannot take it as it drops her diastolic to as low as 32 and she feel s bad. She states she feels as though she is a car running out of gas and she f eels very fatigued after taking it. Spoke with her in regards to how she has be en feeling and she reports that she has slight swelling in her feet and belly. She wonders if her belly swelling is from her liver cysts as she has R abdominal pain under her ribcage and that she drinks lemon juice and feels better. Discu ssed that lemon is a natural diuretic. She also reports SOB with exertion. She states the evenings of 11/02, 11/03 and 11/04 she had rough nights of palpitations and chest pain that she describes as toothe ache pain that subsided. Discussed that if she starts this again or it worsens she should proceed to the ER. Also discussed that [facility] is ordering an echo, pt wants to know if she can have it done in [place] at [facility]. Will route to [facility] for recs. Will await ordering echo until hear from [facility] on if can have done at [facility]. * Telephone Encounter - Lorna Rojas RN - 11/06/2016 4:22 PM CDT Received VM from patient requesting to cancel LANE. 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 Asked her if she has dysphagia or difficulty swallowing. Sh e reports she has to hold her head a certain way or things go down the wrong tub e and she has coughing fits. Told her that dysphagia is contraindicated with TE E and this will be passed along to [facility]. The following email was sent to [facility] and schedulers: Hey everyone! FYI ---This patient is cancelling her LANE at this time. 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 She also thinks it is too risky due to her severe allergy to deya. Dr. Clarke- Due to her concern and history of dysphagia her LANE is cancelled. Are you wanting to change to an echo to look at mitral valve? Patient very appreciative of our office and your care during her appointment. Let me know what I can do! She also wanted you to know that she was found to have cysts to her liver and is seeing a GI MD on Sunday. documented in this encounter Plan of Treatment Not on filedocumented as of this encounter Visit Diagnoses Diagnosis Mitral valve insufficiency, unspecified etiology Exertional dyspnea Other dyspnea and respiratory abnormali ty Mitral valve prolapse Mitral valve disorders documented in this encounter
--- OUTSIDE RECORDS SUMMARY | 2019-11-07 17:53 | XMS REPORT | Encounter Summary ---
Author Author [facility] Organization [facility] Address Unknown Phone Unavailable Care Team Providers Care Cyber Security Engineer Name Role Phone Saleem Coon PCP Encounter Details Care Team Description Date Type Department Ruth Garcia MD [address] [place] [address] 08/10/2015 Documentation [facility] [address] [place] [address] [address] [place] [id number] Social History Date Tobacco Use Types Packs/Day Years Used Never Assessed Sex Assigned at Date Recorded Not on file Industry Job Start Date Occupation Not on file Not on file Not on file Travel End Travel History Travel Start No recent travel history available. documented as of this encounter Plan of Treatment Not on filedocumented as of this encounter Visit Diagnoses Not on filedocumented in this encounter
--- OUTSIDE RECORDS SUMMARY | 2019-11-07 17:53 | XMS REPORT | Encounter Summary ---
Author Author [facility] Organization [facility] Address Unknown Phone Unavailable Care Team Providers Care Optical Fabricator Name Role Phone Saleem Coon PCP Encounter Details Care Team Description Date Type Department Sommer Clarke MD [address] [place] [address] 01/19/2016 Documentation [facility] [address] [place] [address] Social History Date Tobacco Use Types Packs/Day [...]
--- OUTSIDE RECORDS SUMMARY | 2019-11-07 17:53 | XMS REPORT | Encounter Summary ---
Author Author [facility] Organization [facility] Address Unknown Phone Unavailable Care Team Providers Care Linen Sorter Name Role Phone Saleem Coon PCP Reason for Referral * Cardiac Cath (Routine) Referred By Contact Referred To Contact Status Reason Specialty Diagnoses / Procedures [facility] [address] [place] [address] Closed Procedures Right Heart Catheterization Encounter Details Care Team Description Date Type Department Tiffanie Solis RN 10/28/2016 Abstract [facility] [address] [place], [place] [id number] Social History Date Tobacco Use Types Packs/Day [...] Procedure Name Priority Date/Time Associated Diag nosis RIGHT HEART Routine 03/24/2016 CATHETERIZATION 9:18 PM CDT LIPID PANEL Routine 03/23/2016 CV US CAROTID OUTSIDE Routine 11/18/2015 RECORD 9:28 PM CDT ECHO OUTSIDE RECORD Routine 04/01/2015 9:36 PM CDT documented in this encounter Results * Right Heart Catheterization (03/24/2016 9:18 PM CDT) Impressions Performed At RA: 7. RV: 41/9. PA: 38/11/20. Wedge: 1 5 with V-waves to 25. LV: 143/13, Ascending aortic pressure: 145/61. CO/C I (Lolly): 3.6/2.1. LVEF 55%. ([facility]) * Lipid Panel (03/23/2016) Triglycerides 80 40 - 160 mg/dL HDL Cholesterol 35 - 70 mg/dL LDL Cholesterol 102 mg/dL Cholesterol/HDL Ratio LDL INTERPRETATION Non-HDL Cholesterol Cholesterol 158 Specimen Blood * CV US Carotid Outside Record (11/18/2015 9:28 PM CDT) Impressions Performed At Mild atherosclerotic disease involving both carotid systems. No evidence for hemodynamically significant ([facility]) * Echo Outside Record (04/01/2015 9:36 PM CDT) Ejection Fraction Impressions Performed At Normal LVEF. Grade III diastolic dysfun ction. 1+MR. Mild dilatation of RV and RA with 1/2+ TR. Moderate pulmonair hypert ension -40mmHg ([facility] ) documented in this encounter Visit Diagnoses Diagnosis Multiple sclerosis (HCC) Multiple sclerosis documented in this encounter
--- OUTSIDE RECORDS SUMMARY | 2019-11-07 17:53 | XMS REPORT | Encounter Summary ---
Author Author [facility] Organization [facility] Address Unknown Phone Unavailable Care Team Providers Care Mud Car Worker Name Role Phone Saleem Coon PCP Encounter Details Care Team Description Date Type Department Lionel Ambrocio MD [address] [place] [address] [phone] 07/31/2016 Documentation [facility] [address] [place] [address] Social History Date Tobacco Use Types Packs/Day [...]
--- OUTSIDE RECORDS SUMMARY | 2019-11-07 17:53 | XMS REPORT | Encounter Summary ---
Author Author [facility] Organization [facility] Address Unknown Phone Unavailable Care Team Providers Care Thread Marker Name Role Phone Saleem Coon PCP Reason for Referral * Electrophysiology (Routine) Referred By Contact Referred To Contact Status Reason Specialty Diagnoses / Procedures [facility] [address] [place] [address] [address] [place] [address] Closed Procedures EKG Outside Record * Cardiac Cath (Routine) Referred By Contact Referred To Contact Status Reason Specialty Diagnoses / Procedures [facility] [address] [place] [address] [address] [place] [address] Closed Procedures Coronary Angiography Encounter Details Care Team Description Date Type Department Kristy Monsalve MD no forwarding address 03/30/2016 Documentation [facility] [address] [place] [address] [address] [place], [place] [address] Social History Date Tobacco Use Types Packs/Day [...] Associated Diag nosis EKG OUTSIDE RECORD Routine 03/23/2016 LAB OUTSIDE RECORD Routine 03/23/2016 XR OUTSIDE RECORD Routine 03/23/2016 CORONARY ANGIOGRAPHY Routine 03/23/2016 documented in this encounter Results * Lab Outside Record (03/23/2016) Specimen Blood Narrative Performed At This result has an attachment that is n ot available. * XR Outside Record (03/23/2016) Specimen Narrative Performed At This result has an attachment that is n ot available. documented in this encounter Visit Diagnoses Not on filedocumented in this encounter
--- OUTSIDE RECORDS SUMMARY | 2019-11-07 17:53 | XMS REPORT | Encounter Summary ---
Author Author [facility] Organization [facility] Address Unknown Phone Unavailable Care Team Providers Care Rope Coiling Machine Operator Name Role Phone Saleem Coon PCP Reason for Visit * Reason Comments Lab results bnp, thyroid results Encounter Details Care Team Description Date Type Department Tabatha Fagan RN Lab results (bnp, thyroid results) 11/02/2016 Telephone [facility] [address] [place] [address] Social History Date Tobacco Use Types Packs/Day [...] Miscellaneous Notes * Telephone Encounter - Tabatha Fagan RN - 11/02/2016 5:09 PM COAL GRADER 11/02 call to patient to inform of lab results, was able to leave a detailed messa ge. Will send results toPCP GRADER * Telephone Encounter - Tabatha Fagan RN - 11/02/2016 5:08 PM COAL GRADER ----- Message from Sommer Clarke MD sent at 11/01/2016 4:38 PM COAL GRADER ----- Labwork all looks good, how is she doing with low dose diuretic? GRADER documented in this encounter Plan of Treatment Not on filedocumented as of this encounter Visit Diagnoses Not on filedocumented in this encounter
--- OUTSIDE RECORDS SUMMARY | 2019-11-07 17:53 | XMS REPORT | Encounter Summary ---
Author Author [facility] Organization [facility] Address Unknown Phone Unavailable Care Team Providers Care Tool Procurement Coordinator Name Role Phone Saleem Coon PCP Reason for Referral * Diagnostic Imaging (Routine) Referred By Contact Referred To Contact Status Reason Specialty Diagnoses / Procedures Ruth Garcia MD [address] [facility] [address] [place] [address] [facility] Cv Nuc Med [address] [place] [address] Closed Cardiology Diagnoses Swelling Chest pain, unspecified chest pain type P rocedures CV MPI SPECT Exercise * Diagnostic Imaging (Routine) Referred By Contact Referred To Contact Status Reason Specialty Diagnoses / Procedures Ruth Garcia MD [address] [facility] [address] [place] [address] Closed Diagnoses Swelling P rocedures Electrocardiogram (ECG) without magnet Reason for Visit * Reason Comments Edema Encounter Details Care Team Description Date Type Department Ruth Garcia MD [address] [facility] [address] [place] [address] [phone] Swelling (Primary Dx); Chest pain, unspecified chest pain type 09/24/2015 Initial consult [facility] Jimmy Akhtar [facility] [address] [place] [address] Social History Date Tobacco Use Types Packs/Day [...] Signs Reading Time Taken Comments Vital Sign 142/78 09/24/2015 10:55 AM [employer] Blood Pressure 64 09/24/2015 10:55 AM [employer] Pulse - - Temperature - - Respiratory Rate - - Oxygen Saturation - - Inhaled Oxygen Concentration 62.4 kg (137 lb 9.6 oz) 09/24/2015 10:55 AM [employer] Weight 157.5 cm (5' 2") 09/24/2015 10:55 AM [employer] Height 25.17 09/24/2015 10:55 AM [employer] Body Mass Index documented in this encounter Progress Notes * Ruth Garcia MD - 09/24/2015 10:57 AM [employer] [facility] Appointment Date: 09/24/2015 Saleem Coon DO [address] [place] [id number] RE: Jose Roberto Reeves : 1935 Visit provider: Ruth Garcia MD Dear Saleem Coon DO, I had the pleasure of seeing Jose Roberto Reeves in the office today. She is a 80 y.o. 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 She denies a prior history of cardiovascular disease. She did have an echocardiogram performed in 2014 in [place]. This reported normal systolic function with grade III diastolic dysfu nction and pulmonary artery pressure of 40 mmHg. Valvular function was normal. A cardiac catheterization was recommended at that time to exclude coronary meenu ry disease as the etiology for her symptoms. She declined the cardiac catheteri zation as she was concerned about potential complication risks, especially focus ing on stroke. She continues to note lifestyle affecting fatigue. She notes marked dyspnea wit h minimal exertion and can have intermittent associated symptoms of chest pressu re and actual chest pain. She denies these symptoms at rest. She denies orthop cameron, PND, lower extremity edema, palpitations, presyncope, syncope, or symptoms of stroke. She has had recent laboratory that did not reveal anemia. She does take thyroid supplementation and thyroid lab was normal as well. She reports a remote history of an autoimmune disorder, though could not elaborate more on thi s. She states her blood pressure has been under excellent control. There is no problem list on file for this patient. History reviewed. No pertinent past medical history. History reviewed. No pertinent past surgical history. Final Medications: Current Outpatient Prescriptions Medication Sig Dispense Refill thyroid, pork, (ARMOUR) 60 mg Tab tablet Take 60 mg by mouth daily. No current facility-administered medications for this visit. Allergies Allergen Reactions Lasix [Furosemide] Anaphylaxis Naltrexone Analogues Family History Problem Relation Age of Onset Heart attack Father Kidney cancer Brother Melanoma Brother Social History: History Substance Use Topics Smoking status: Never Smoker Smokeless tobacco: Never Used Alcohol Use: No Review of Systems Constitution: Positive for malaise/fatigue. Negative for fever, weakness and nig ht sweats. HENT: Negative for nosebleeds. Eyes: Negative for vision loss in left eye and vision loss in right eye. Cardiovascular: Positive for cyanosis, irregular heartbeat, leg swelling and pal pitations. Negative for chest pain, claudication, dyspnea on exertion, near-sync ope, orthopnea and syncope. Respiratory: Positive for snoring. Negative for cough, hemoptysis, shortness of breath, sleep disturbances due to breathing and wheezing. Endocrine: Positive for cold intolerance. Negative for polydipsia. Hematologic/Lymphatic: Does not bruise/bleed easily. Skin: Negative for rash. Musculoskeletal: Positive for myalgias. Negative for joint pain. Gastrointestinal: Negative for dysphagia, hematochezia, nausea and vomiting. Genitourinary: Negative for hematuria. Neurological: Negative for brief paralysis, disturbances in coordination, excess travis daytime sleepiness, dizziness, light-headedness, loss of balance and numbnes s. Psychiatric/Behavioral: Negative for depression. All other systems reviewed and are negative. Vital Signs 09/24/15 1055 BP: 142/78 Pulse: 64 Height: 1.575 m (5' 2") Weight: 62.415 kg (137 lb 9.6 oz) BMI: Body mass index is 25.16 kg/(m^2). Physical Exam Constitutional: She is oriented to person, place, and time. She appears well-dev eloped. Eyes: Pupils are equal, round, and reactive to light. No scleral icterus. Neck: Neck supple. No JVD present. Carotid bruit is not present. Cardiovascular: Normal rate and normal heart sounds. Pulmonary/Chest: Breath sounds normal. Abdominal: Soft. There is no tenderness. Musculoskeletal: She exhibits no edema. Neurological: She is alert and oriented to person, place, and time. Skin: Skin is warm. Psychiatric: She has a normal mood and affect. Vitals reviewed. No results found for: CHOL, LDL, HDL, TRIG No results found for: LDLCHOL EKG: Sinus rhythm with PACs. Encounter Diagnoses Name Primary? Swelling Yes Chest pain, unspecified chest pain type Impression: Symptoms of limiting dyspnea on exertion with chest pressure and discomfort. Ce rtainly her symptomatology is suspicious for angina with coronary artery disease as the etiology. The symptom of overwhelming fatigue that affects quality of l jairo in a previously active female also raises the question of anginal equivalent , all of which warrant further cardiovascular evaluation. Certainly, one may be suspicious of diastolic dysfunction in a postmenopausal female contributing to dyspnea on exertion, though the severity of her symptoms appears disproportionat e. Recommendations: 1. I did spend the majority of the visit with her and her daughter discussing r isk factors and preventive strategies. 2. I have asked that she document blood pressure during her symptomatic episode s. 3. Lastly, we did discuss cardiac catheterization and respectfully she is quite hesitant. She is agreeable to do an exercise nuclear stress test to address is chemia. I will review these results with her with further recommendations. If this is normal, one may consider pulmonary function tests. Another consideratio n could be that of a cardiac MRI to exclude infiltrative disorder contributing t o diastolic dysfunction. Of note, the voltage on her EKG was normal. Thank you for allowing me to participate in Jose Roberto Reeves's care. If I can be of an y further assistance, please do not hesitate to contact me. Sincerely, Ruth Garcia MD TLS/tmo [employer] documented in this encounter Plan of Treatment Order Schedule Name Type Priority Associated Diag noses 1 Occurrences starting 09/24/2015 until 09/23/2016 CV MPI SPECT Exercise Cardiac Routine Swelling Services Chest pain, unspecified chest pain type documented as of this encounter Procedures Comments Procedure Name Priority Date/Time Associated Diag nosis ECG Routine 09/24/2015 Swelling 11:03 AM [employer] documented in this encounter Results * Electrocardiogram (ECG) without magnet (09/24/2015 11:03 AM [employer]) Specimen Narrative Performed At [facility] Test Date: 2015-09-24 Pat Name: JOSE ROBERTO REEVES Department: [facility] Room: Gender: Female Environmental Health And Safety Manager: Mackenzie Monteiro : 1935 Requested By: RUTH GARCIA Order Number: [id number] Reading MD: Ruth Garcia Measurements Intervals Drake Rate: 70 P: 78 VT: 196 QRS: -2 QRSD: 96 T: 12 QT: 404 QTc: 436 Interpretive Statements SINUS RHYTHM ATRIAL PREMATURE COMPLEX No previous ECG available for compariso n Electronically Signed On 09-24-2015 17:3 2:01 [employer] by Ruth Garcia Performing Organization Address City/State/Zipcode Ph one Number [email or web address] documented in this encounter Visit Diagnoses Diagnosis Swelling Localized superficial swelling, mass, o r lump Chest pain, unspecified chest pain type documented in this encounter
--- OUTSIDE RECORDS SUMMARY | 2019-11-07 17:53 | XMS REPORT | Encounter Summary ---
Author Author [facility] Organization [facility] Address Unknown Phone Unavailable Care Team Providers Care Plc Controls Engineer Name Role Phone Saleem Coon PCP Encounter Details Care Team Description Date Type Department Jaylon Andrade RN 09/22/2015 Abstract [facility] [address] [place] [address] Social History Date Tobacco Use Types Packs/Day [...]
--- OUTSIDE RECORDS SUMMARY | 2019-11-07 17:53 | XMS REPORT | Encounter Summary ---
Author Author [facility] Organization [facility] Address Unknown Phone Unavailable Care Team Providers Care Assistance Specialist Name Role Phone Coon Saleem PCP Reason for Visit * Reason Comments Procedure Instructions LANE Encounter Details Care Team Description Date Type Department Tabatha Fagan RN Procedure Instructions (LANE) 10/31/2016 Telephone [facility] [address] [place] [address] Social History Date Tobacco Use Types Packs/Day [...] Telephone Encounter - Tabatha Fagan RN - 10/31/2016 4:33 PM HYBRID CAR MECHANIC 38 taught while in office and hard copy of instructions given. Sanitarian Aide, Reza colvin was not able to give a date/time/location before leaving. She is aware that she will be contacted with this information. Note that blanks will need to be f illed once information obtained: Pt scheduled for LANE , scheduled , to arrive at [facility] by JORJE. Verified allergies, reviewed medicatons. EMAIL SENT TO [facility] EMPLOYEE RELATIONS ADVISOR DARIELA Saldivar PATIENT IS ANAPHLAXIS TO ALL CARMELA Provided following instructions: NPO after MN prior to procedure. Please hold the following medications: LASIX THE MORNING OF PROCEDURE, take all other medications as you normally would, though only with small sips of water. You will not be allowed to drive yourself home, so please make arrangements for a ride. Your delivery route driver is asked to remain in the waiting area until your procedure has been completed. You should NOT drive or operate machinery for at least 12-14 hours following the procedure, as there may be residual effects from the sedative. Following the procedure, avoid food and beverages, especially hot liquids, until sensation has returned to the throat. This usually occurs within an hour. Please contact [phone] nurse line with further questions. Last office visit 11/01/2015 Orders entered in [facility] Updated procedure log . Mailed instructions to patient --GIVEN TO PATIENT AT TIME OF VISIT 10/31/16. ID CAR MECHANIC documented in this encounter Plan of Treatment Not on filedocumented as of this encounter Visit Diagnoses Not on filedocumented in this encounter
--- OUTSIDE RECORDS SUMMARY | 2019-11-07 17:53 | XMS REPORT | Encounter Summary ---
Author Author [facility] Organization [facility] Address Unknown Phone Unavailable Care Team Providers Care Casting Room Operator Name Role Phone Saleem Coon PCP Reason for Referral * Diagnostic Imaging (Routine) Referred By Contact Referred To Contact Status Reason Specialty Diagnoses / Procedures Shawn Candelario MD [address] [facility] [address] [place] [address] Closed Diagnoses Chronic diastolic (congestive) heart failure (HCC) P rocedures Electrocardiogram (ECG) Reason for Visit * Reason Comments Hypertension Encounter Details Care Team Description Date Type Department Shawn Candelario MD [address] [facility] [address] [place] [address] Chronic diastolic (congestive) heart siobhan lure (HCC) (Primary Dx); Mitral valve insufficiency, unspecified etiology; Pulmonary hypertension (HCC); Hypothyroidism, unspecified type 10/31/2016 Office Visit [facility] [address] [place] [address] [address] [place] [address] Social History Date Tobacco Use Types Packs/Day [...] Signs Reading Time Taken Comments Vital Sign 126/72 10/31/2016 3:09 PM [employer] Blood Pressure 74 10/31/2016 3:09 PM [employer] reg Pulse - - Temperature - - Respiratory Rate - - Oxygen Saturation - - Inhaled Oxygen Concentration 62.1 kg (137 lb) 10/31/2016 3:09 PM [employer] Weight 157.5 cm (5' 2") 10/31/2016 3:09 PM [employer] Height 25.06 10/31/2016 3:09 PM [employer] Body Mass Index documented in this encounter Patient Instructions * Patient Instructions* Tabatha Fagan, RN - 10/31/2016 3:44 PM [employer] "We want to know how we are doing taking care of our patients. You may receive an on-line e-mail with a survey asking you how we did. We strive for 10's and V susan Satisfied patients. We would appreciate your time to fill out the survey fo r us. Thank you for helping us be the very best we can be." 1. Dr Candelario spoke with your about elevated pressures in your heart and how thi s can make your heart work harder, thus making you more short of breath or have chest aches/pains with activity. This is probably caused primarily by the MITRAL VALVE (leaking/regurgitation) 2. To check the pressures of the heart and valve, Have ordered an LANE (TRANSESO PHAGEAL ECHO), they will contact you for an appointment. If you have not heard from them in 10 business days, please call [phone] 3. Have ordered labs that need to be done: THYROID CASCADE, CBC, CMP, IRON STUD IES, BNP. PLEASE HAVE DONE TODAY, [facility], [address] 4[address] Candelario will review the lab results and her nurses should call you with an y recommendations. If you have not heard from them in 3-5 days AFTER your get y our blood drawn, please call [phone] 5. To help with pressures in your heart, Dr Candelario would like to start you on a "mild water pill/diuretic" FUROSEMIDE 20 MG, TAKE HALF A TABLET EVERYDAY. She may decide you need a potassium pill, but only AFTER she is able to review your labs. Her nurses will contact you with her recommendations. 6. Please weigh yourself everyday and keep a record. Call if you gain 2#/24 ho urs, 3#/48 hours or 5#/week or have increased shortness of air, swelling/edema t o feet and anklees or bloating in abdomen--[phone] 7. Follow up with Dr Candelario in ONE MONTH, we should be able to make this appoin tment today. Understanding Mitral Valve Regurgitation Mitral valve regurgitation is when the mitral valve in the heart is leaky. It le ts some blood flow backwards when the ventricle squeezes. How mitral valve regurgitation happens The mitral valve is one of the hearts 4 valves. Normally, these valves help t he blood flow through the hearts 4 chambers and out to the body without leaki ng backwards. The mitral valve lies between the left atrium and the left ventric le. Normally, the mitral valve stops blood from flowing back into the left atriu m from the left ventricle when the ventricle squeezes. This maximizes forward bl ood flow through the heart. With mitral valve regurgitation, some blood leaks back through the valve. This m akes the heart have to work harder to get blood out to your body. When this bloo d is regurgitated backwards in the heart, it increases the pressure within the h eart which can lead to muscle damage as well as high blood pressure in the lungs . Mitral valve regurgitation can increase risk for other heart rhythm problems, frey ch as atrial fibrillation (AFib). This abnormal heart rhythm results in fast and irregular heartbeats which can also lower the heart's pumping ability and incre ases the risk for stroke. Mitral valve regurgitation can be acute or chronic. If its acute, the valve s uddenly becomes leaky. In this case, the heart doesnt have time to adapt to t he leak in the valve. Symptoms are often severe. If its chronic, the valve le aks more and more over time. The heart has time to adapt to the leak. What causes mitral valve regurgitation? Mitral valve regurgitation can be caused by various things, such as: Heart attack or coronary artery disease Natural aging that can damage the mitral valve Tearing of the tissue or muscle that supports the mitral valve such as due to an injury A redundant or floppy mitral valve, called mitral valve prolapse Rheumatic heart disease caused by untreated Streptococcus infection. Strep ar e the bacteria that cause strep throat. Certain autoimmune diseases, such as rheumatoid arthritis Infection of the heart valves (endocarditis) Problems with the mitral valve that are present at Certain medicines You can reduce some risk factors for mitral valve regurgitation. For example: Use antibiotics as directed to treat a strep infection and prevent rheumatic heart disease. Reduce the risk for heart valve infection by not injecting illegal drugs. Manage risk factors that can lead to a heart attack or chronic heart artery d isease. There are other risk factors that you cant change. For example, some conditio ns that can lead to mitral valve regurgitation are partly genetic. Symptoms of mitral valve regurgitation Chronic mitral valve regurgitation often doesnt cause symptoms for a long gregory e. Mild or moderate mitral regurgitation often doesnt cause any symptoms. If the condition becomes more severe, you may have symptoms. They may get worse and happen more often over time. Symptoms may include: Shortness of breath with physical activity Shortness of breath when lying flat Feeling tired Less ability to exercise Awareness of your heartbeat Swelling in your legs, abdomen, and the veins in your neck Chest pain (less common) Acute, severe mitral valve regurgitation is a medical emergency that can cause s erious symptoms such as: Symptoms of shock (pale skin, loss of consciousness, rapid breathing) Severe shortness of breath Arrhythmias that make the heart unable to pump blood well Diagnosing mitral valve regurgitation Your healthcare provider will ask about your health history. He or she will give you a physical exam. Using a stethoscope, your healthcare provider will listen to your heart. This is to check for sounds called heart murmurs and other signs that the heart isnt pumping normally. You may also have tests such as: Echocardiogram, to look at the structure of the heart using sound waves Stress echocardiogram, to see how well the heart does during exercise Electrocardiogram (EKG), to check the hearts rhythm Cardiac MRI, transesophageal echocardiogram, or cardiac catheterization, if m ore information is needed [id number] [employer]. [address] [place] [address] 8245 7. All rights reserved. This information is not intended as a substitute for pro fessional medical care. Always follow your healthcare professional's instruction s. Transesophageal Echocardiography (LANE) A probe in your esophagus produces sound waves. Transesophageal echocardiography (LANE) is a test that allows your doctor to nicolas rd images of your heart from inside your esophagus, or food pipe. These images h elp your doctor identify and treat problems such as infection, disease, or defec ts in your hearts kent or valves. Allow about 1 to 2 hours after the test is completed to the time you can leave. Before your test Mention allthe medications you take and ask if itsOK to take them befo re the test. Dont eat or drink for6 vf4uxbys before the test. This includes water . Tell your doctor if you have ulcers, a hiatal hernia, or problems swallowing. Also, let him or her know of any allergies to any medications or sedatives. Arrange to have someonedrive youhome after the exam. During your LANE When you arrive for your LANE, you will change into a hospital gown, and then be taken to the testing room. Your throat is sprayed with an anesthetic to numb it. You may be given a mild sedative through an IV (intravenous) line in your arm to help you relax. You may also be given oxygen. Then youll be asked to lie on your left side. The doctor gently inserts the probe into your mouth. As you swallow, the tube is slowly guided into your esophagus. The tube is lubricated to make it slide e asily. You may feel the doctor moving the probe, but it shouldnt hurt or interfer e with your breathing. A nurse monitors your heart rate, blood pressure, and jonah athing.The test usually takes 20 to 40 minutes. After the test You can eatand drink again when your throat is no longer numb. Be sure to keep your follow-up appointment. Your next appointment is: [employer]. [address] [place] [address] 7. All rights reserved. This information is not intended as a substitute for pro fessional medical care. Always follow your healthcare professional's instruction s. [employer] documented in this encounter Progress Notes * Shawn Candelario MD - 10/31/2016 3:20 PM [employer] [facility] Appointment Date: 10/31/2016 Saleem Coon DO [address] [place] [id number] RE: Melanie Reeves : 1935 Visit provider: Shawn Candelario MD Dear Saleem Coon DO, I had the pleasure of seeing Melanie Reeves in the office today. She is an 81 y.o. fe male and presents with the following chief complaints: Dyspnea HPI: I enjoyed meeting Ms. Reeves today to discuss her persistent dyspnea and chest p ain. As you may recall, she is a very pleasant 81-year-old woman who has had se veral years of progressive dyspnea and was found to have diastolic dysfunction a nd elevated estimated pulmonary pressures by echocardiography last year. She no coral a long history of mitral valve prolapse, but was subsequently found during a hospitalization late last year to have significant at least moderate mitral reg urgitation, elevated estimated pulmonary pressures, mildly elevated right and le ft-sided pressures and a marginal cardiac index of 2.1 with preserved LV functio n and mild to moderate tricuspid regurgitation. She was placed on medical thera py that at times has included losartan, nitrate and amlodipine with symptomatic hypotension and intolerance. She was at one point on spironolactone as well but does not recall it being of particular benefit. She will get short of breath a nd chest aching with any exertion. She has mild edema but does feel does feel m ore bothered by early satiety and abdominal bloating. She did have invasive cor onary angiography in the setting of a mildly elevated troponin during the time o f her catheterization her hospitalization, which did not suggest any coronary di sease of note. She also had pulmonary function testing that showed diminished D LCO with mild restrictive pattern but no significant COPD, which had been a conc fidel as well. Patient Active Problem List Diagnosis SNOMED CT(R) Hypothyroidism HYPOTHYROIDISM Fatigue FATIGUE Exertional dyspnea DYSPNEA ON EXERTION Pulmonary hypertension (HCC) PULMONARY HYPERTENSION Multiple sclerosis (HCC) MULTIPLE SCLEROSIS Mitral regurgitation MITRAL VALVE REGURGITATION Past Medical History Diagnosis Date Chest pain Edema 09/11 Lower ext Exertional dyspnea Family history of coronary artery disease Fatigue Hypothyroidism Multiple sclerosis (HCC) Pulmonary hypertension (HCC) 03/2015 Moderate per Echo Past Surgical History Procedure Laterality Date Cardiac catheterization 03/24/2016 No angiographic evidence of coronary artery disease. ([facility]) Right heart cath 03/24/2016 RA: 7. RV: 41/9. PA: 38/11/20. Wedge: 15 with V-waves to 25. LV: 143/13, Ascen ding aortic pressure: 145/61. CO/CI (Lolly): 3.6/2.1. LVEF 55%. ([facility]) Appendectomy Hysterectomy Tonsillectomy Final Medications: Current Outpatient Prescriptions Medication Sig Dispense Refill furosemide (LASIX) 20 MG tablet Take 0.5 tablets (10 mg total) by mouth sterling y. 90 tablet 3 thyroid, pork, (ARMOUR) 60 mg Tab tablet Take 60 mg by mouth daily. No current facility-administered medications for this visit. Allergies Allergen Reactions Anoop-1 Anaphylaxis All CARMELA--lidocaine, Novocain Lasix [Furosemide] Anaphylaxis Naltrexone Analogues Family History Problem Relation Age of Onset Heart attack Father Kidney cancer Brother Melanoma Brother Social History: Social History Substance Use Topics Smoking status: Never Smoker Smokeless tobacco: Never Used Alcohol use No Exercise level: None Diet: Regular Caffeine: No Review of Systems Constitution: Negative for fever, malaise/fatigue and night sweats. HENT: Negative for nosebleeds. Eyes: Negative. Cardiovascular: Positive for dyspnea on exertion, irregular heartbeat and leg sw elling. Negative for chest pain, claudication, cyanosis, near-syncope, orthopnea , palpitations and syncope. Respiratory: Positive for shortness of breath. Negative for cough, hemoptysis, s leep disturbances due to breathing, snoring and wheezing. Endocrine: Negative for cold intolerance and polydipsia. Hematologic/Lymphatic: Does not bruise/bleed easily. Skin: Negative for rash. Musculoskeletal: Negative for joint pain and myalgias. Gastrointestinal: Negative for dysphagia, hematochezia, nausea and vomiting. Genitourinary: Negative for hematuria. Neurological: Positive for paresthesias. Negative for brief paralysis, disturban giovanni in coordination, excessive daytime sleepiness, dizziness, focal weakness, li ght-headedness, loss of balance and numbness. Psychiatric/Behavioral: Negative for depression. All other systems reviewed and are negative. Vital Signs 10/31/16 1509 BP: 126/72 Pulse: 74 Weight: 62.1 kg (137 lb) Height: 1.575 m (5' 2") BMI: Body mass index is 25.06 kg/(m^2). Physical Exam Constitutional: She appears well-developed and well-nourished. HENT: Head: Normocephalic. Eyes: Conjunctivae are normal. No scleral icterus. Neck: JVD present. Cardiovascular: Normal rate. Murmur heard. Pulses: Carotid pulses are 2+ on the right side, and 2+ on the left side. Radial pulses are 2+ on the right side, and 2+ on the left side. No bruit Pulmonary/Chest: Effort normal and breath sounds normal. Abdominal: Soft. There is no tenderness. Musculoskeletal: She exhibits no edema or tenderness. Neurological: She is alert. No aphasia, Moves all extremities Skin: Skin is warm and dry. Psychiatric: She has a normal mood and affect. Cholesterol (no units) Date Value 03/23/2016 158 Triglycerides (mg/dL) Date Value 03/23/2016 80 LDL Cholesterol Date/Time Value Ref Range Status 03/23/2016 102 mg/dL Final EKG: Reviewed Encounter Diagnoses Name Primary? Chronic diastolic (congestive) heart failure (HCC) Yes Mitral valve insufficiency, unspecified etiology Pulmonary hypertension (HCC) Hypothyroidism, unspecified type Impression and Plan: 1. Chronic heart failure with preserved ejection fraction in the setting of jesus vular disease. a. [place] [employer] functional class IIIB. b. [place] [employer] stage C. c. Hypervolemic on exam. d. Last ejection fraction of 55%. e. Mild pulmonary hypertension. -- I have asked her to do a trial of low-dose diuretic therapy with furosemide 1 0 mg daily. We will assess laboratories today to include a renal panel, BMP, CB C, iron studies and thyroid cascade before making any additional medical therapy recommendations, which may include potassium supplementation or low-dose spiron olactone therapy. -- I have asked her to undergo transesophageal echocardiography to further evalu ate the etiology and degree of severity of her mitral valve disease and follow u p thereafter. 2. 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 She has not tolerated antianginal therapy to include calcium channel blockers and nitrates. We will assess her response to diuretic therapy. Treatment goals, progress and next steps, as above, were discussed and mutually agreed upon with the patient/family. Thank you for allowing me to participate in Melanie Reeves's care. If I can be of an y further assistance, please do not hesitate to contact me. Sincerely, Shawn Candelario MD BATerrie/toña documented in this encounter Plan of Treatment Not on filedocumented as of this encounter Procedures Comments Procedure Name Priority Date/Time Associated Diag nosis ECG Routine 10/31/2016 Chronic diastol ic 3:13 PM [employer] (congestive) heart failure (HCC) documented in this encounter Results * NTproBNP (10/31/2016 4:30 PM [employer]) NTproBNP 190 pg/mL [facility] Comment: REGIONAL NT-proBNP Reference Ranges: LABORATORIES <50 yr <450 pg/mL 50-75 yr <900 pg/mL >75 yr <1800 pg/mL A cutoff value of 1200 pg/mL is recommended in patients 50 to 70 years of age with a GFR between 30 and 60. NT-proBNP is unreliable in patients with GFR <30. Specimen Blood Performing Organization Address [facility] one Number [address] [address] LABORATORIES * Thyroid [place] (10/31/2016 4:30 PM [employer]) Thyroid 0.90 0.47 - 4.68 uIU/mL [facility] Stimulating [facility] Hormone LABORATORIES Specimen Blood Performing Organization Address City/[facility] one Number [address] [address] LABORATORIES * Comprehensive Metabolic Panel (10/31/2016 4:30 PM [employer]) Pathologist [facility] Sodium 140 133 - 147 MEQ/L [facility] Potassium 4.6 3.5 - 5.3 MEQ/L [facility] Chloride 101 96 - 112 MEQ/L [facility] Carbon Dioxide 31 20 - 32 MEQ/L [facility] Anion Gap 9 5 - 17 [facility] Calcium 9.5 8.4 - 10.5 mg/dL [facility] Glucose 118 (H) 70 - 100 mg/dL [facility] Protein Total 7.1 6.0 - 8.2 g/dL [facility] Serum [facility] Albumin 4.1 3.5 - 5.0 g/dL [facility] Alkaline 99 42 - 140 IU/L [facility] Phosphatase [facility] Alanine 14 13 - 69 IU/L [facility] Aminotransferas [facility] e LABORATORIES Aspartate 27 15 - 46 IU/L [facility] Bilirubin Total 0.6 0.2 - 1.3 mg/dL [facility] Blood Urea 17 7 - 26 mg/dL [facility] Creatinine 0.8 0.4 - 1.1 mg/dL [facility] eGFR Female AA 83 60 - 200 [facility] Comment: REGIONAL Chronic Kidney Disease less LABORATORIES than 60 mL/min/1.73 sq.m Kidney failure less than 15 mL/min/1.73 sq.m eGFR Female 69 60 - 200 [facility] Non-AA Comment: REGIONAL Chronic Kidney Disease less LABORATORIES than 60 mL/min/1.73 sq.m Kidney failure less than 15 mL/min/1.73 sq.m Specimen Blood Performing Organization Address City/State/Zipcode Ph one Number [address] [phone] LABORATORIES * CBC and Diff (manual diff if necessary) (10/31/2016 4:30 PM [employer]) WBC 6.63 4.00 - 11.00 TH/uL [facility] RBC 4.36 4.00 - 5.00 MIL/uL [facility] Hemoglobin 13.3 12.0 - 15.0 g/dL [facility] Hematocrit 40 36 - 45 % [facility] MCV 92 80 - 99 fL [facility] MCH 31 27 - 34 pg [facility] MCHC 33 32 - 36 % [facility] RDW 13.0 9.0 - 14.5 % [facility] Platelet Count 214 140 - 400 TH/uL [facility] MPV 11.7 9.4 - 12.3 fL [facility] Nucleated RBCs 0 0 - 0 /100 [facility] % Neutrophils 60 45 - 78 % [facility] %Lymphocytes 26 15 - 47 % [facility] %Monocytes 12 0 - 12 % [facility] %Eosinophils 2 0 - 7 % [facility] %Basophils 1 0 - 2 % [facility] % Imm Grans 0 0 - 1 % [facility] # Granulocytes 3.96 1.70 - 6.80 TH/uL [facility] # Lymphocytes 1.73 1.00 - 3.30 TH/uL [facility] # Monocytes 0.76 0.20 - 0.90 TH/uL [facility] # Eosinophils 0.13 0.00 - 0.40 TH/uL [facility] # Basophils 0.04 0.00 - 0.10 TH/uL [facility] Specimen Blood Performing Organization Address City/State/Zipcode Ph one Number [address] [address] LABORATORIES * Electrocardiogram (ECG) (10/31/2016 3:13 PM [employer]) Specimen Narrative Performed At [facility] Test Date: 2016-10-31 Pat Name: MELANIE REEVES Department: [facility] Room: Gender: Female Oracle Consultant: [id number] : 1935 Requested By: SHAWN CANDELARIO Order Number: [id number] Reading MD: Shawn Candelario Measurements Intervals [place] Rate: 74 P: 64 TN: 180 QRS: 10 QRSD: 84 T: 61 QT: 384 QTc: 426 Interpretive Statements SINUS RHYTHM Electronically Signed On 10-31-2016 18:06 :17 [employer] by Shawn Candelario Procedure Note Interface, External Ris In - 10/31/2016 6:06 PM [employer] [facility] Test Date: 2016-10-31 Pat Name: MELANIE REEVES Department: [facility] Room: Gender: Female Oracle Consultant: [id number] : 1935 Requested By: SHAWN CANDELARIO Order Number: [id number] Reading MD: Shawn Candelario Measurements Intervals [place] Rate: 74 P: 64 TN: 180 QRS: 10 QRSD: 84 T: 61 QT: 384 QTc: 426 Interpretive Statements SINUS RHYTHM Electronically Signed On 10-31-2016 18:06:17 [employer] by Shawn Candelario Performing Organization Address City/State/Zipcode Ph one Number [facility] documented in this encounter Visit Diagnoses Diagnosis Chronic diastolic (congestive) heart fa ilure (HCC) Mitral valve insufficiency, unspecified etiology Pulmonary hypertension (HCC) Other chronic pulmonary heart diseases Hypothyroidism, unspecified type documented in this encounter
--- OUTSIDE RECORDS SUMMARY | 2019-11-07 17:53 | XMS REPORT | Encounter Summary ---
Author Author [facility] Organization [facility] Address Unknown Phone Unavailable Care Team Providers Care Border Police Name Role Phone Saleem Coon PCP Encounter Details Care Team Description Date Type Department Sommer Clarke MD [address] [employer] [address] [place] [address] [phone] Annual physical exam; Mitral valve insufficiency, unspecified etiology 10/31/2016 Lab [facility] [address] [place] [address] Social History Date Tobacco Use Types Packs/Day [...] Procedure Name Priority Date/Time Associated Diag nosis THYROID CASCADE Routine 10/31/2016 Annual physica l exam 4:30 PM INVENTORY REPRESENTATIVE Mitral valve insufficiency, unspecified etiology NTPROBNP Routine 10/31/2016 Annual physical exam 4:30 PM INVENTORY REPRESENTATIVE Mitral valve insufficiency, unspecified etiology IRON/TRANSFERRIN Routine 10/31/2016 4:30 PM INVENTORY REPRESENTATIVE FERRITIN Routine 10/31/2016 4:30 PM INVENTORY REPRESENTATIVE COMPREHENSIVE METABOLIC Routine 10/31/2016 Annual physical exam PANEL 4:30 PM INVENTORY REPRESENTATIVE Mitral valve insufficiency, unspecified etiology CBC AND DIFF (MANUAL DIFF Routine 10/31/2016 Priscilla al physical exam IF NECESSARY) 4:30 PM INVENTORY REPRESENTATIVE Mitral valve insufficiency, unspecified etiology documented in this encounter Results * Ferritin (10/31/2016 4:30 PM INVENTORY REPRESENTATIVE) Ferritin 30 20 - 200 ng/mL [facility] Specimen Performing Organization Address [facility] one Number [address] [address] LABORATORIES * Iron/Transferrin (10/31/2016 4:30 PM INVENTORY REPRESENTATIVE) Iron 110 50 - 180 ug/dL [facility] Transferrin 308 206 - 381 mg/dL [facility] Total 370 204 - 408 ug/dL [facility] Iron-Binding [facility] LABORATORIES Iron/Transferri 30 15 - 50 % [facility] n % Saturation [facility] Specimen Performing Organization Address [facility] one Number [address] [address] LABORATORIES * NTproBNP (10/31/2016 4:30 PM INVENTORY REPRESENTATIVE) NTproBNP 190 pg/mL [facility] Comment: REGIONAL NT-proBNP Reference Ranges: LABORATORIES <50 yr <450 pg/mL 50-75 yr <900 pg/mL >75 yr <1800 pg/mL A cutoff value of 1200 pg/mL is recommended in patients 50 to 70 years of age with a GFR between 30 and 60. NT-proBNP is unreliable in patients with GFR <30. Specimen Blood Performing Organization Address [facility] one Number [address] [address] LABORATORIES * Thyroid Pondera (10/31/2016 4:30 PM INVENTORY REPRESENTATIVE) Thyroid 0.90 0.47 - 4.68 uIU/mL [facility] Stimulating [facility] Hormone LABORATORIES Specimen Blood Performing Organization Address [facility] one Number [address] [address] LABORATORIES * Comprehensive Metabolic Panel (10/31/2016 4:30 PM INVENTORY REPRESENTATIVE) Sodium 140 133 - 147 MEQ/L [facility] Potassium 4.6 3.5 - 5.3 MEQ/L [facility] Chloride 101 96 - 112 MEQ/L [facility] Carbon Dioxide 31 20 - 32 MEQ/L [facility] Anion Gap 9 5 - 17 [facility] Calcium 9.5 8.4 - 10.5 mg/dL [facility] Glucose 118 (H) 70 - 100 mg/dL [facility] Protein Total 7.1 6.0 - 8.2 g/dL [facility] Serum [facility] Albumin 4.1 3.5 - 5.0 g/dL [facility] Alkaline 99 42 - 140 IU/L [facility] Phosphatase [facility] Alanine 14 13 - 69 IU/L [facility] Aminotransferas [facility] e LABORATORIES Aspartate 27 15 - 46 IU/L [facility] Bilirubin Total 0.6 0.2 - 1.3 mg/dL [facility] Blood Urea 17 7 - 26 mg/dL [facility] Nitrogen [facility] Creatinine 0.8 0.4 - 1.1 mg/dL [facility] eGFR Female AA 83 60 - 200 [facility] Comment: REGIONAL Chronic Kidney Disease less LABORATORIES than 60 mL/min/1.73 sq.m Kidney failure less than 15 mL/min/1.73 sq.m eGFR Female 69 60 - 200 [facility] Non-AA Comment: REGIONAL Chronic Kidney Disease less LABORATORIES than 60 mL/min/1.73 sq.m Kidney failure less than 15 mL/min/1.73 sq.m Specimen Blood Performing Organization Address City/State/Zipcode Ph one Number [facility] [address] [place] [id number] LABORATORIES * CBC and Diff (manual diff if necessary) (10/31/2016 4:30 PM INVENTORY REPRESENTATIVE) WBC 6.63 4.00 - 11.00 TH/uL [facility] LABORATORIES RBC 4.36 4.00 - 5.00 MIL/uL [facility] Hemoglobin 13.3 12.0 - 15.0 g/dL [facility] Hematocrit 40 36 - 45 % [facility] MCV 92 80 - 99 fL [facility] MCH 31 27 - 34 pg [facility] MCHC 33 32 - 36 % [facility] RDW 13.0 9.0 - 14.5 % [facility] Platelet Count 214 140 - 400 TH/uL [facility] MPV 11.7 9.4 - 12.3 fL [facility] Nucleated RBCs 0 0 - 0 /100 [facility] % Neutrophils 60 45 - 78 % [facility] %Lymphocytes 26 15 - 47 % [facility] %Monocytes 12 0 - 12 % [facility] %Eosinophils 2 0 - 7 % [facility] %Basophils 1 0 - 2 % [facility] % Imm Grans 0 0 - 1 % [facility] # Granulocytes 3.96 1.70 - 6.80 TH/uL [facility] LABORATORIES # Lymphocytes 1.73 1.00 - 3.30 TH/uL [facility] LABORATORIES # Monocytes 0.76 0.20 - 0.90 TH/uL [facility] LABORATORIES # Eosinophils 0.13 0.00 - 0.40 TH/uL [facility] LABORATORIES # Basophils 0.04 0.00 - 0.10 TH/uL [facility] LABORATORIES Specimen Blood Performing Organization Address City/State/Zipcode Ph one Number [address] [address] LABORATORIES documented in this encounter Visit Diagnoses Diagnosis Annual physical exam Routine general medical examination at a health care facility Mitral valve insufficiency, unspecified etiology documented in this encounter
--- OUTSIDE RECORDS SUMMARY | 2019-11-07 17:53 | XMS REPORT | Encounter Summary ---
Author Author [facility] Organization [facility] Address Unknown Phone Unavailable Care Team Providers Care Boilerhouse Mechanic Name Role Phone Saleem Coon PCP Encounter Details Care Team Description Date Type Department Vicente Muro MD [address] [facility] [address] [place] [phone] 06/30/2016 Documentation [facility] [address] [place] [address] [address] [place] [phone] Social History Date Tobacco Use Types Packs/Day [...]
--- OUTSIDE RECORDS SUMMARY | 2019-11-07 17:53 | XMS REPORT | Encounter Summary ---
Author Author [facility] Organization [facility] Address Unknown Phone Unavailable Care Team Providers Care Varnishing Unit Operator Name Role Phone Saleem Coon PCP Encounter Details Care Team Description Date Type Department Sommer Clarke MD [address] [facility] [address] [place] [address] 10/19/2016 Documentation [facility] [address] [facility] [address] [place] [id number] Social History Date Tobacco Use Types Packs/Day Years Used Never Smoker Smokeless Tobacco: Never Used Drinks/Week oz/Week Comments Alcohol Use No Sex Assigned at Date Recorded Not on file Industry Job Start Date Occupation Not on file Not on file Not on file Travel End Travel History Travel Start No recent travel history available. documented as of this encounter Plan of Treatment Order Schedule Name Type Priority Associated Diag noses Ordered: 10/27/2016 PULMONARY FUNCTION TEST PFT documented as of this encounter Procedures Comments Procedure Name Priority Date/Time Associated Diag nosis ECHO OUTSIDE RECORD Routine 11/10/2016 LAB SUMMARY 10/30/2016 12:59 PM FLAME GOUGER LAB SUMMARY 10/27/2016 3:28 PM FLAME GOUGER LAB SUMMARY 10/27/2016 3:28 PM FLAME GOUGER LAB SUMMARY 10/27/2016 3:28 PM FLAME GOUGER LAB SUMMARY 10/27/2016 3:28 PM FLAME GOUGER LAB SUMMARY 10/27/2016 3:27 PM FLAME GOUGER GLUCOSE Routine 05/12/2016 CT OUTSIDE RECORD Routine 04/07/2016 CORONARY ANGIOGRAM Routine 03/24/2016 OUTSIDE RECORD US OUTSIDE RECORD Routine 11/18/2015 documented in this encounter Results * Echo Outside Record (11/10/2016) Ejection Fraction Specimen Impressions Performed At Mild mitral regurgitation and mild tric uspid regurgitation and mild pulmonic regurgitation. Estimated PAP normal. No rmal cardiac chambers and cardiac contractility. [facility] Medical Narrative Performed At This result has an attachment that is n ot available. * LAB SUMMARY (10/30/2016 12:59 PM FLAME GOUGER) Narrative Performed At This result has an attachment that is n ot available. Ordered by an unspecified provider. * LAB SUMMARY (10/27/2016 3:28 PM FLAME GOUGER) Narrative Performed At This result has an attachment that is n ot available. Ordered by an unspecified provider. * LAB SUMMARY (10/27/2016 3:28 PM FLAME GOUGER) Narrative Performed At This result has an attachment that is n ot available. Ordered by an unspecified provider. * LAB SUMMARY (10/27/2016 3:28 PM FLAME GOUGER) Narrative Performed At This result has an attachment that is n ot available. Ordered by an unspecified provider. * LAB SUMMARY (10/27/2016 3:28 PM FLAME GOUGER) Narrative Performed At This result has an attachment that is n ot available. Ordered by an unspecified provider. * LAB SUMMARY (10/27/2016 3:27 PM FLAME GOUGER) Narrative Performed At This result has an attachment that is n ot available. Ordered by an unspecified provider. * Glucose (05/12/2016) Glucose 102 mg/dL Specimen Blood Narrative Performed At This result has an attachment that is n ot available. * CT Outside Record (04/07/2016) Specimen Narrative Performed At This result has an attachment that is n ot available. * Coronary Angiogram Outside Record (03/24/2016) Specimen Impressions Performed At No angiographic evidence of coronary ar elisa disease. ([facility]) Narrative Performed At This result has an attachment that is n ot available. * [place] Outside Record (11/18/2015) Specimen Impressions Performed At No evidence for hemodynamically signifi cant stenosis of arterial system of either lower extremity. ([facility]) Narrative Performed At This result has an attachment that is n ot available. documented in this encounter Visit Diagnoses Not on filedocumented in this encounter
--- OUTSIDE RECORDS SUMMARY | 2019-11-07 17:53 | XMS REPORT | Encounter Summary ---
Author Author [facility] Address Unknown Phone Unavailable Care Team Providers Care Report Clerk Name Role Phone Saleem Coon PCP Encounter Details Care Team Description Date Type Department Jayla Rogers RN 03/04/2016 Abstract [facility] [address] [facility] [address] [place], [place] [phone] Social History Date Tobacco Use Types Packs/Day [...] Procedure Name Priority Date/Time Associated Diag nosis VITAMIN D, 25-HYDROXY Routine 04/28/2015 THYROID STIMULATING Routine 04/28/2015 HORMONE POTASSIUM Routine 04/28/2015 CREATININE Routine 04/28/2015 ASPARTATE Routine 04/28/2015 AMINOTRANSFERASE ALANINE AMINOTRANSFERASE Routine 04/28/2015 documented in this encounter Results * Creatinine (04/28/2015) Creatinine 0.6 0.5 - 1.1 mg/dL [facility] Creatinine 0.5 - 1.1 mg/dL [facility] eGFR If [facility] NonAfricn Am eGFR If Africn [facility] Am Specimen Blood Performing Organization Address City/State/Zipcode Ph one Number [facility] [address] [place], [place] [address] [facility] [address] [place], [place] [address], [place] * Potassium (04/28/2015) Potassium 4.7 3.4 - 5.3 mmol/L [facility] Specimen Blood Performing Organization Address [facility] one Number [id number] [address] [place], [place] [address] [facility] [address] [place], [place] [address], [place] * Vitamin D, 25-Hydroxy (04/28/2015) Vitamin D 58.24 [facility] 25-Hydroxy Specimen Blood Performing Organization [facility] one Number [id number] [address] [place], [place] [address] [facility] [address] [place], [place] [address], [place] * Thyroid Stimulating Hormone (04/28/2015) Thyroid 0.63 0.41 - 5.90 uIU/mL [facility] Stimulating Hormone Specimen Blood Performing Organization [facility] one Number [id number] [address] [place], [place] [address] [facility] [address] [place], [place] [address], [place] * Aspartate Aminotransferase (04/28/2015) Aspartate 24 13 - 35 U/L [facility] Aminotransferas e Specimen Blood Performing Organization [facility] one Number [id number] [address] [place], [place] [address] [facility] [address] [place], [place] [address], [place] * Alanine Aminotransferase (04/28/2015) Alanine 18 7 - 35 U/L [facility] Aminotransferas e Specimen Blood Performing Organization [facility] one Number [id number] [address] [place], [place] [address] [facility] [address] [place] [address], [place] documented in this encounter Visit Diagnoses Not on filedocumented in this encounter
--- OUTSIDE RECORDS SUMMARY | 2019-11-07 17:54 | XMS REPORT | Continuity of Care Document ---
Author Organization Unknown Address Unknown Phone Unavailable Allergies Active Description Code Type Severity Reaction Onset Reported/Identified Relationship to Patient Clinical Status Yes ANTIBIOTICS ALL ANTIBIOTICS ALL Unknown N/A 12/12/2013 Yes CARMELA CARMELA Unknown N/A 12/12/2013 Yes CODEINE CODEINE Unknown N/A 12/12/2013 Yes CORTISONE CORTISONE Unknown N/A 12/12/2013 Yes DYE DYE Unknown N/A 12/12/2013 Yes egg [id number] Drug Allergy Unknown N/A 12/12/2013 Yes latex [id number] Drug Allergy Unknown N/A 12/12/2013 Yes milk [id number] Drug Allergy Unknown N/A 12/12/2013 Medications There is no data. Problems Date Dx Coded Attending Type Code Diagnosis Diagnosed By 01/03/2012 Ot 780.79 OTH MALAISE FATIGUE 01/03/2012 Ot 787.02 PAULETTE SEA ALONE 01/03/2012 Ot 791.9 ABN URINE FINDINGS NEC 02/21/2013 MI CHO DO Ot 244.9 HYPOTHYROIDISM NOS 02/21/2013 MI CHO DO Ot 250.00 DIAB GARRETT WO COMPL, TYPE II OR UNSPEC TY 02/21/2013 MI CHO DO Ot 401.9 HYPERTENSION NOS 02/21/2013 MI CHO DO Ot 424.1 AORTIC VALVE DISORDER 02/21/2013 MI CHO DO Ot 433.10 CAROTID ARTERY OCCLUSION W O CEREBRAL IN 02/21/2013 MI CHO DO Ot 786.50 CHEST PAIN NOS 12/13/2013 MI CHO DO Ot 244.9 HYPOTHYROIDISM NOS 12/13/2013 MI CHO DO Ot 276.51 DEHYDRATION 12/13/2013 MI CHO DO Ot 424.1 AORTIC VALVE DISORDER 12/13/2013 MI CHO DO Ot 458.0 ORTHOSTATIC HYPOTENSION 12/13/2013 MI CHO DO Ot 482.9 BACTERIAL PNEUMONIA NOS 07/22/2014 SHANDA CHO CODING DIRECTOR Ot 240.9 07/22/2014 SHANDA CHO CODING DIRECTOR Ot 787.20 09/08/2014 Ot 536.8 09/08/2014 Ot 789.01 09/08/2014 Ot 719.47 09/08/2014 Ot 729.5 09/08/2014 Ot 959.7 09/08/2014 Ot E000.8 09/08/2014 Ot E849.0 09/08/2014 Ot E888.9 09/08/2014 Ot 785.1 09/08/2014 Ot 733.90 09/08/2014 Ot 244.9 09/08/2014 Ot 536.8 09/08/2014 Ot 786.50 09/08/2014 Ot 627.1 09/08/2014 Ot 789.01 09/08/2014 KIM SHANDA Jiménez INTERNET PROJECT MANAGER Ot 719.41 09/08/2014 KIMSHANDA INTERNET PROJECT MANAGER Ot 723.1 09/08/2014 SHANDA CHO CODING DIRECTOR Ot 241.0 09/08/2014 BOB CHOIA Katty CODING DIRECTOR Ot V67.9 09/08/2014 PADMAJA CHORICIA L CODING DIRECTOR Ot 788.41 09/08/2014 LIANNA LÓPEZ, BRIT Falcon Ot 780.79 09/08/2014 BRIT DSOUZA MD Ot 793.11 09/08/2014 MI CHO DO Ot 486 09/08/2014 MI CHO DO Ot 780.60 09/08/2014 SHANDA CHO L CODING DIRECTOR Ot 240.9 09/08/2014 PADMAJA CHORICIA L CODING DIRECTOR Ot 787.20 09/09/2014 PADMAJA CHORICIA L CODING DIRECTOR Ot 789.09 10/12/2014 PADMAJA CHORICIA L CODING DIRECTOR Ot 789.09 01/14/2015 PADMAJA CHORICIA L CODING DIRECTOR Ot 786.50 01/19/2015 BOB CHOIA L CODING DIRECTOR Ot 786.50 02/04/2015 PADMAJA CHORICIA L CODING DIRECTOR Ot 786.50 07/28/2015 SHANDA CHO L CODING DIRECTOR Ot R05 11/19/2015 CHOSHANDA HAMMOND L CODING DIRECTOR Ot I25.10 11/19/2015 CHOBOB HAMMONDIA L CODING DIRECTOR Ot I65.23 11/19/2015 CHO, SHANDA L CODING DIRECTOR Ot I73.9 11/19/2015 CHO, SHANDA L CODING DIRECTOR Ot R42 11/23/2015 CHO, SHANDA L CODING DIRECTOR Ot I25.10 11/23/2015 CHO, SHANDA L CODING DIRECTOR Ot I65.23 11/23/2015 CHOBOB HAMMONDIA L CODING DIRECTOR Ot I73.9 11/23/2015 CHO, SHANDA L CODING DIRECTOR Ot R42 11/23/2015 CHO, SHANDA L CODING DIRECTOR Ot I25.10 11/23/2015 CHO, SHANDA L CODING DIRECTOR Ot I65.23 11/23/2015 CHOBOBIA L CODING DIRECTOR Ot I73.9 11/23/2015 CHOBOBIA L CODING DIRECTOR Ot R42 12/08/2015 CHOBOB HAMMONDIA L CODING DIRECTOR Ot I25.10 12/08/2015 CHOBOB HAMMONDIA L CODING DIRECTOR Ot I65.23 12/08/2015 CHOBOBIA L CODING DIRECTOR Ot I73.9 12/08/2015 CHOPADMAJASHANDA L CODING DIRECTOR Ot R42 04/10/2016 MI CHO DO Ot R10.13 EPIGASTRIC PAIN 04/10/2016 MI CHO DO Ot R19.03 RIGHT LOWER QUADRANT ABDOMINAL SWELLING, 04/11/2016 MI CHO DO Ot R10.13 EPIGASTRIC PAIN 04/11/2016 MI CHO DO Ot R19.03 RIGHT LOWER QUADRANT ABDOMINAL SWELLING, 04/27/2016 SHANDA ALVAREZ INTERNET PROJECT MANAGER Ot 719.41 JOINT PAIN-SHLDER 04/27/2016 SHANDA ALVAREZ INTERNET PROJECT MANAGER Ot 723.1 CERVICALGIA 04/28/2016 MI CHO DO Ot R10.13 EPIGASTRIC PAIN 04/28/2016 MI CHO DO Ot R19.03 RIGHT LOWER QUADRANT ABDOMINAL SWELLING, 05/31/2016 Ot 719.47 ESPERANZA NT PAIN-ANKLE 05/31/2016 Ot 729.5 PAIN IN LIMB 05/31/2016 Ot 959.7 LOWE R LEG INJURY NOS 05/31/2016 Ot E000.8 OTH ER EXTERNAL CAUSE STATUS 05/31/2016 Ot E849.0 ACC IDENT IN HOME 05/31/2016 Ot E888.9 FAL L NOS 05/31/2016 Ot 785.1 PALP ITATIONS 05/31/2016 Ot 733.90 BON E CARTILAGE DIS NOS 05/31/2016 Ot 244.9 HYPO THYROIDISM NOS 05/31/2016 Ot 536.8 STOM ACH FUNCTION DIS NEC 05/31/[address] PAIN NOS 05/31/2016 Ot 627.1 POST MENOPAUSAL BLEEDING 05/31/2016 Ot 789.01 ABD OMINAL PAIN, RIGHT UPPER QUADRANT 05/31/2016 RIDINGS, SHANDA C INTERNET PROJECT MANAGER Ot 719.41 JOINT PAIN-SHLDER 05/31/2016 RIDINGS, SHANDA C INTERNET PROJECT MANAGER Ot 723.1 CERVICALGIA 05/31/2016 SHANDA CHO L CODING DIRECTOR Ot 241.0 NONTOX UNINODULAR GOITER 05/31/2016 SHANDA CHO L CODING DIRECTOR Ot V67.9 FOLLOW-UP EXAM NOS 05/31/2016 SHANDA CHO CODING DIRECTOR Ot 788.41 URINARY FREQUENCY 05/31/2016 LIANNA LÓPEZ, BRIT Falcon Ot 780.79 OTH MALAISE FATIGUE 05/31/2016 LIANNA LÓPEZ, BRIT Falcon Ot 793.11 SOLITARY PULMONARY NODULE 05/31/2016 MI CHO DO Ot 486 PNEUMONIA, ORGANISM NOS 05/31/2016 MI CHO DO Ot 780.60 FEVER, UNSPECIFIED 05/31/2016 SHANDA CHO L CODING DIRECTOR Ot R05 COUGH 05/31/2016 SHANDA CHO L CODING DIRECTOR Ot 240.9 GOITER NOS 05/31/2016 BOB CHOIA L CODING DIRECTOR Ot 787.20 DYSPHAGIA, UNSPECIFIED 05/31/2016 BOB CHOIA L CODING DIRECTOR Ot 789.09 ABDOMINAL PAIN, OTHER SPECIFIED SITE 05/31/2016 SHANDA CHO L CODING DIRECTOR Ot 790.29 OTHER ABNORMAL GLUCOSE 05/31/2016 TREVIN GUILLEN DO Ot 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 05/31/2016 TREVIN GUILLEN DO Ot 780.79 OTH MALAISE FATIGUE 05/31/2016 TREVIN GUILLEN DO Ot 787.99 OTHER GI SYSTEM SYMPTOMS 05/31/2016 TREVIN GUILLEN DO Ot 789.06 ABDOMINAL PAIN, EPIGASTRIC 05/31/2016 SHANDA CHOP Ot 786.50 CHEST PAIN NOS 05/31/2016 SHANDA CHO CODING DIRECTOR Ot I25.10 ATHSCL HEART DISEASE OF [place] CORONARY 05/31/2016 SHANDA CHO CODING DIRECTOR Ot 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 05/31/2016 SHANDA CHO CODING DIRECTOR Ot I73.9 PERIPHERAL VASCULAR DISEASE, UNSPECIFIED 05/31/2016 SHANDA CHOP Ot R42 DIZZINESS AND GIDDINESS 05/31/2016 MI CHO DO Ot R10.13 EPIGASTRIC PAIN 05/31/2016 MI CHO DO Ot R19.03 RIGHT LOWER QUADRANT ABDOMINAL SWELLING, 06/01/2016 SHANDA CHO CODING DIRECTOR Ot I25.10 ATHSCL HEART DISEASE OF [place] CORONARY 06/01/2016 SHANDA CHO CODING DIRECTOR Ot 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 06/01/2016 BOB CHOIA Katty CODING DIRECTOR Ot I73.9 PERIPHERAL VASCULAR DISEASE, UNSPECIFIED 06/01/2016 SHANDA CHOP Ot R42 DIZZINESS AND GIDDINESS 06/01/2016 MI CHO DO Ot R10.13 EPIGASTRIC PAIN 06/01/2016 MI CHO DO Ot R19.03 RIGHT LOWER QUADRANT ABDOMINAL SWELLING, 06/02/2016 MI CHO DO Ot J44.9 CHRONIC OBSTRUCTIVE PULMONARY DISEASE, U 06/21/2016 MI CHO DO Ot J44.9 CHRONIC OBSTRUCTIVE PULMONARY DISEASE, U 08/22/2017 SHANDA CHOP Ot R10.11 RIGHT UPPER QUADRANT PAIN 07/15/2018 SHANDA ALVAREZ INTERNET PROJECT MANAGER Ot 719.41 JOINT PAIN-SHLDER 07/15/2018 SHANDA ALVAREZ INTERNET PROJECT MANAGER Ot 723.1 CERVICALGIA 07/15/2018 SHANDA CHO CODING DIRECTOR Ot 241.0 NONTOX UNINODULAR GOITER 07/15/2018 SHANDA CHO CODING DIRECTOR Ot V67.9 FOLLOW-UP EXAM NOS 07/15/2018 MARQUIS SHANDA Alaniz CODING DIRECTOR Ot 788.41 URINARY FREQUENCY 07/15/2018 BRIT DSOUZA MD Ot 780.79 OTH MALAISE FATIGUE 07/15/2018 BRIT DSOUZA MD Ot 793.11 SOLITARY PULMONARY NODULE 07/15/2018 MI CHO DO Ot 486 PNEUMONIA, ORGANISM NOS 07/15/2018 MI CHO DO Ot 780.60 FEVER, UNSPECIFIED 07/15/2018 SHANDA CHO CODING DIRECTOR Ot R05 COUGH 07/15/2018 SHANDA CHO CODING DIRECTOR Ot 240.9 GOITER NOS 07/15/2018 SHANDA CHO CODING DIRECTOR Ot 787.20 DYSPHAGIA, UNSPECIFIED 07/15/2018 SHANDA CHO CODING DIRECTOR Ot 789.09 ABDOMINAL PAIN, OTHER SPECIFIED SITE 07/15/2018 SHANDA CHO CODING DIRECTOR Ot 790.29 OTHER ABNORMAL GLUCOSE 07/15/2018 TREVIN GUILLEN DO Ot 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 07/15/2018 TREVIN GUILLEN DO Ot 780.79 OTH MALAISE FATIGUE 07/15/2018 TREVIN GUILLEN DO Ot 787.99 OTHER GI SYSTEM SYMPTOMS 07/15/2018 TREVIN GUILLEN DO Ot 789.06 ABDOMINAL PAIN, EPIGASTRIC 07/15/2018 SHANDA CHO CODING DIRECTOR Ot 786.50 CHEST PAIN NOS 07/15/2018 SHANDA CHO CODING DIRECTOR Ot I25.10 ATHSCL HEART DISEASE OF [place] CORONARY 07/15/2018 SHANDA CHO L CODING DIRECTOR Ot 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 07/15/2018 SHANDA CHO L CODING DIRECTOR Ot I73.9 PERIPHERAL VASCULAR DISEASE, UNSPECIFIED 07/15/2018 SHANDA CHO L CODING DIRECTOR Ot R42 DIZZINESS AND GIDDINESS 07/15/2018 MI CHO DO Ot R10.13 EPIGASTRIC PAIN 07/15/2018 MI CHO DO Ot R19.03 RIGHT LOWER QUADRANT ABDOMINAL SWELLING, 07/15/2018 MI CHO DO, Ot J44.9 CHRONIC OBSTRUCTIVE PULMONARY DISEASE, U 07/15/2018 SHANDA CHO Ot R10.11 RIGHT UPPER QUADRANT PAIN 07/16/2018 MI CHO DO, Ot D18.09 HEMANGIOMA OF OTHER SITES 07/16/2018 MI CHO DO Ot G57.92 UNSPECIFIED MONONEUROPATHY OF LEFT LOWER 07/16/2018 MI CHO DO, Ot M47.816 SPONDYLOSIS W/O MYELOPATHY OR RADICULOPA 07/16/2018 MI CHO DO, Ot Z86.69 PERSONAL HISTORY OF DIS OF THE NERVOUS S 08/08/2018 MI CHO DO, Ot D18.09 HEMANGIOMA OF OTHER SITES 08/08/2018 MI CHO DO, Ot G57.92 UNSPECIFIED MONONEUROPATHY OF LEFT LOWER 08/08/2018 MI CHO DO, Ot M47.816 SPONDYLOSIS W/O MYELOPATHY OR RADICULOPA 08/08/2018 MI CHO DO Ot Z86.69 PERSONAL HISTORY OF DIS OF THE NERVOUS S 09/18/2019 MI CHO DO Ot G45.9 TRANSIENT CEREBRAL ISCHEMIC ATTACK, UNSP 09/18/2019 SHANDA CHO CODING DIRECTOR Ot R05 COUGH 09/18/2019 SHANDA CHO CODING DIRECTOR Ot 240.9 GOITER NOS 09/18/2019 SHANDA CHO CODING DIRECTOR Ot 787.20 DYSPHAGIA, UNSPECIFIED 09/18/2019 SHANDA CHO CODING DIRECTOR Ot 789.09 ABDOMINAL PAIN, OTHER SPECIFIED SITE 09/18/2019 SHANDA CHO CODING DIRECTOR Ot 790.29 OTHER ABNORMAL GLUCOSE 09/18/2019 TREVIN GUILLEN DO Ot 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 09/18/2019 TREVIN GUILLEN DO Ot 780.79 OTH MALAISE FATIGUE 09/18/2019 TREVIN GUILLEN DO Ot 787.99 OTHER GI SYSTEM SYMPTOMS 09/18/2019 TREVIN GUILLEN DO Ot 789.06 ABDOMINAL PAIN, EPIGASTRIC 09/18/2019 SHANDA CHO Ot 786.50 CHEST PAIN NOS 09/18/2019 SHANDA CHOP Ot I25.10 ATHSCL HEART DISEASE OF [place] CORONARY 09/18/2019 SHANDA CHO Ot 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 09/18/2019 SHANDA CHO Ot I73.9 PERIPHERAL VASCULAR DISEASE, UNSPECIFIED 09/18/2019 SHANDA CHO Ot R42 DIZZINESS AND GIDDINESS 09/18/2019 CHO DO, MI De La Garza Ot R10.13 EPIGASTRIC PAIN 09/18/2019 CHO DO, MI De La Garza Ot R19.03 RIGHT LOWER QUADRANT ABDOMINAL SWELLING, 09/18/2019 CHO DO, MI De La Garza Ot J44.9 CHRONIC OBSTRUCTIVE PULMONARY DISEASE, U 09/18/2019 SHANDA CHO Ot R10.11 RIGHT UPPER QUADRANT PAIN 09/18/2019 CHO DO, MI De La Garza Ot D18.09 HEMANGIOMA OF OTHER SITES 09/18/2019 CHO DO, MI De La Garza Ot G57.92 UNSPECIFIED MONONEUROPATHY OF LEFT LOWER 09/18/2019 CHOMI HAMMOND DO, Ot M47.816 SPONDYLOSIS W/O MYELOPATHY OR RADICULOPA 09/18/2019 CHO , MI De La Garza Ot Z86.69 PERSONAL HISTORY OF DIS OF THE NERVOUS S 09/18/2019 MARQUIS DU, MI De La Garza Ot G45.9 TRANSIENT CEREBRAL ISCHEMIC ATTACK, UNSP 09/24/2019 MI CHO DO, Ot 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 Results Test Result Range Complete blood count (CBC) with automate d white blood cell (WBC) differential - 11/05/19 17:00 Blood leukocytes automated count (number/volume) 5.9 10*3/uL 4.3-11.0 Blood erythrocytes automated count (number/volume) 4.54 10*6/uL 4.35-5.85 Venous blood hemoglobin measurement (mass/volume) 13.9 g/dL 11.5-16.0 Blood hematocrit (volume fraction) 42 % 35-52 Automated erythrocyte mean corpuscular volume 92 [ z_us] 80-99 Automated erythrocyte mean corpuscular h emoglobin (mass per erythrocyte) 31 pg 25-34 Automated erythrocyte mean corpuscular h emoglobin concentration measurement (mass/volume) 33 g/dL 32-36 Automated erythrocyte distribution width ratio 13. 8 % 10.0- 14.5 Automated blood platelet count (count/volume) 210 10*3/uL 130-400 Automated blood platelet mean volume measurement 10.9 [foz_us] 7.4-10.4 Automated blood neutrophils/100 leukocytes 55 % 42-75 Automated blood lymphocytes/100 leukocytes 30 % 12-44 Blood monocytes/100 leukocytes 13 % 0-12 Automated blood eosinophils/100 leukocytes 3 % 0-10 Automated blood basophils/100 leukocytes 1 % 0-10 Blood neutrophils automated count (number/volume) 3.2 10*3 1.8-7.8 Blood lymphocytes automated count (number/volume) 1.8 10*3 1.0-4.0 Blood monocytes automated count (number/volume) 0. 7 10*3 0.0-1.0 Automated eosinophil count 0.2 10*3/uL 0 .0-0.3 Automated blood basophil count (count/volume) 0.0 10*3/uL 0.0-0.1 PT panel in platelet poor plasma by coag ulation assay - 11/05/19 17:00 Prothrombin time (PT) in platelet poor plasma by coagu lation assay 12.4 s 12.2-14.7 INR in platelet poor plasma or blood by coagulation as say 0.9 0.8-1.4 Activated partial thromboplastin time (a PTT) in platelet poor plasma bycoagulation assay - 11/05/19 17:00 Activated partial thromboplastin time (a PTT) in platelet poor plasma bycoagulation assay 27 s 24-35 Comprehensive metabolic panel - 11/05/19 17:00 Serum or plasma sodium measurement (moles/volume) 139 mmol/L 135-145 Serum or plasma potassium measurement (moles/volume) 4.5 mmol/L 3.6-5.0 Serum or plasma chloride measurement (moles/volume) 103 mmol/L 98-107 Carbon dioxide 23 mmol/L 21-32 Serum or plasma anion gap determination (moles/volume) 13 mmol/L 5-14 Serum or plasma urea nitrogen measurement (mass/volume ) 14 mg/dL 7-18 Serum or plasma creatinine measurement (mass/volume) 0.74 mg/dL 0.60-1.30 Serum or plasma urea nitrogen/creatinine mass ratio 19 NRG Serum or plasma creatinine measurement w ith calculation of estimated glomerular filtration rate > NRG Serum or plasma glucose measurement (mass/volume) 93 mg/dL 70-105 Serum or plasma calcium measurement (mass/volume) 9.3 mg/dL 8.5-10.1 Serum or plasma total bilirubin measurement (mass/volu me) 0.5 mg/dL 0.1-1.0 Serum or plasma alkaline phosphatase tonia surement (enzymatic activity/volume) 102 U/L 40-136 Serum or plasma aspartate aminotransfera se measurement (enzymatic activity/volume) 36 U/L 5-34 Serum or plasma alanine aminotransferase measurement (enzymatic activity/volume) 21 U/L 0-55 Serum or plasma protein measurement (mass/volume) 7.4 g/dL 6.4-8.2 Serum or plasma albumin measurement (mass/volume) 4.1 g/dL 3.2-4.5 CALCIUM CORRECTED 9.2 mg/dL 8.5-10.1 Magnesium - 11/05/19 17:00 Magnesium 2.2 mg/dL 1.6-2.4 Serum or plasma creatine kinase measurem ent (enzymatic activity/volume) - 11/05/19 17:00 Serum or plasma creatine kinase measurem ent (enzymatic activity/volume) 43 U/L 29-168 Serum or plasma creatine kinase MB measu rement (enzymatic activity/volume) - 11/05/19 17:00 Serum or plasma creatine kinase MB measu rement (enzymatic activity/volume) 1.1 ng/mL <6.6 Serum or plasma troponin i.cardiac measu rement (mass/volume) - 11/05/19 17:00 Serum or plasma troponin i.cardiac measurement (mass/v olume) < ng/mL <0.028 Myoglobin, serum - 11/05/19 17:00 Myoglobin, serum 53.3 ng/mL 10.0-92.0 Serum or plasma thyrotropin measurement by detection limit <=0.05 miu/l (units/volume) - 11/05/19 17:00 Serum or plasma thyrotropin measurement by detection limit <=0.05 miu/l (units/volume) 1.78 u[iU]/mL 0.35-4.94 Serum or plasma lithium measurement (mol es/volume) - 11/05/19 17:00 BNP PT 91.6 pg/mL <100.0 Serum or plasma troponin i.cardiac measu rement (mass/volume) - 11/05/19 22:58 Serum or plasma troponin i.cardiac measurement (mass/v olume) < ng/mL <0.028 Complete blood count (CBC) with automate d white blood cell (WBC) differential - 11/06/19 03:04 Blood leukocytes automated count (number/volume) 6.1 10*3/uL 4.3-11.0 Blood erythrocytes automated count (number/volume) 4.08 10*6/uL 4.35-5.85 Venous blood hemoglobin measurement (mass/volume) 12.4 g/dL 11.5-16.0 Blood hematocrit (volume fraction) 38 % 35-52 Automated erythrocyte mean corpuscular volume 92 [ foz_us] 80-99 Automated erythrocyte mean corpuscular h emoglobin (mass per erythrocyte) 30 pg 25-34 Automated erythrocyte mean corpuscular h emoglobin concentration measurement (mass/volume) 33 g/dL 32-36 Automated erythrocyte distribution width ratio 13. 6 % 10.0- 14.5 Automated blood platelet count (count/volume) 203 10*3/uL 130-400 Automated blood platelet mean volume measurement 11.0 [foz_us] 7.4-10.4 Automated blood neutrophils/100 leukocytes 57 % 42-75 Automated blood lymphocytes/100 leukocytes 26 % 12-44 Blood monocytes/100 leukocytes 13 % 0-12 Automated blood eosinophils/100 leukocytes 4 % 0-10 Automated blood basophils/100 leukocytes 1 % 0-10 Blood neutrophils automated count (number/volume) 3.4 10*3 1.8-7.8 Blood lymphocytes automated count (number/volume) 1.6 10*3 1.0-4.0 Blood monocytes automated count (number/volume) 0. 8 10*3 0.0-1.0 Automated eosinophil count 0.3 10*3/uL 0 .0-0.3 Automated blood basophil count (count/volume) 0.0 10*3/uL 0.0-0.1 Comprehensive metabolic panel - 11/06/19 03:04 Serum or plasma sodium measurement (moles/volume) 141 mmol/L 135-145 Serum or plasma potassium measurement (moles/volume) 3.7 mmol/L 3.6-5.0 Serum or plasma chloride measurement (moles/volume) 107 mmol/L 98-107 Carbon dioxide 24 mmol/L 21-32 Serum or plasma anion gap determination (moles/volume) 10 mmol/L 5-14 Serum or plasma urea nitrogen measurement (mass/volume ) 10 mg/dL 7-18 Serum or plasma creatinine measurement (mass/volume) 0.75 mg/dL 0.60-1.30 Serum or plasma urea nitrogen/creatinine mass ratio 13 NRG Serum or plasma creatinine measurement w ith calculation of estimated glomerular filtration rate > NRG Serum or plasma glucose measurement (mass/volume) 92 mg/dL 70-105 Serum or plasma calcium measurement (mass/volume) 8.7 mg/dL 8.5-10.1 Serum or plasma total bilirubin measurement (mass/volu me) 0.6 mg/dL 0.1-1.0 Serum or plasma alkaline phosphatase tonia surement (enzymatic activity/volume) 84 U/L 40-136 Serum or plasma aspartate aminotransfera se measurement (enzymatic activity/volume) 23 U/L 5-34 Serum or plasma alanine aminotransferase measurement (enzymatic activity/volume) 15 U/L 0-55 Serum or plasma protein measurement (mass/volume) 6.1 g/dL 6.4-8.2 Serum or plasma albumin measurement (mass/volume) 3.5 g/dL 3.2-4.5 CALCIUM CORRECTED 9.1 mg/dL 8.5-10.1 Encounters ACCT No. Visit Date/Time Discharge Status Pt. Type Provider Facility Loc./Unit Complaint [id number] 11/05/2019 18:05:00 020 08:50:00 DIS Inpatient MI CHO DO [facility] CSD PAPLITATIONS,DY SPNEA,PEDAL EDEMA,LBBB [id number] 09/19/2019 10:27:00 020 23:59:59 CLS Outpatient MI HCO DO [facility] RAD TRANSIENT ISCHE GINA ATTACK [id number] 07/15/2018 10:15:00 018 23:59:59 CLS Outpatient MI CHO DO [facility] RAD L LEG NEUROPATH Y [id number] 08/10/2017 08:38:00 017 23:59:59 CLS Preadmit MI CHO DO [facility] RAD SIATICA [id number] 07/31/2017 12:30:00 017 23:59:59 CLS Outpatient CHOSHANDA LOBATO CODING DIRECTOR [facility] RAD RUQ PAIN [id number] 05/31/2016 12:35:00 016 23:59:59 CLS Outpatient MI CHO DO [facility] RT J44.9 [id number] 04/07/2016 13:40:00 016 23:59:59 CLS Outpatient MI CHO DO [facility] RAD R10.13 [id number] 11/18/2015 11:39:00 016 23:59:59 CLS Outpatient CHOBOB LOBATOIA L CODING DIRECTOR [facility] RAD CLAUDICATION,DI ZZINESS, CAD [id number] 06/29/2015 11:06:00 015 23:59:59 CLS Outpatient CHOBOB LOBATOIA L CODING DIRECTOR [facility] RAD COUGH [id number] 01/13/2015 12:33:00 015 23:59:59 CLS Outpatient CHOPADMAJA LOBATORICIA L CODING DIRECTOR [facility] CARD CHEST PAIN [id number] 10/02/2014 08:25:00 015 23:59:59 CLS Outpatient DEFFENBAUGH TREVIN [facility] LAB ABD PAIN,CHG IN BOWEL HABITS,MALAISE,DIST OF SALIV [id number] 10/02/2014 08:09:00 015 23:59:59 CLS Outpatient CHOBOB HAMMONDIA L CODING DIRECTOR [facility] LAB ELEVATED GLUCOS E [id number] 09/08/2014 13:28:00 015 23:59:59 CLS Outpatient SHANDA CHO [facility] RAD RIGHT RENAL PEL VIS PAIN [id number] 06/25/2014 14:43:00 014 23:59:59 CLS Outpatient SHANDA CHO [facility] RAD THYROMEGALY/ DI FFICULTY SWALLOWING [id number] 12/11/2013 15:00:00 014 16:45:00 DIS Inpatient MI CHO DO [facility] 4TH PNEUMONIA [id number] 12/11/2013 10:28:00 014 23:59:59 CLS Outpatient MI CHO DO [facility] RAD PNEUMONIA,FEVER [id number] 11/19/2013 15:47:00 014 23:59:59 CLS Outpatient BRIT DSOUZA MD [facility] RAD DECEMBER 2011 NODULE ON CXR [id number] 09/24/2013 15:32:00 014 23:59:59 CLS Outpatient SHANDA CHO [facility] RAD URINARY FREQUEN CY [id number] 03/28/2013 12:18:00 013 23:59:59 CLS Outpatient SHANDA CHO [facility] RAD THYROID NODULE RECHECK [id number] 02/21/2013 10:59:00 013 22:00:00 DIS Inpatient MI CHO DO [facility] CSD CHEST PAIN [id number] 02/18/2013 13:50:00 013 23:59:59 CLS Outpatient SHANDA ALVAREZ APRN [facility] RAD NECK RT SHOUL LISA PAIN [id number] 11/12/2019 12:30:00 P EN Preadmit DANIELE BLACKBURN MD [facility] CARD BIRCH,PALPITATIONS,LBBB [id number] 11/11/2019 10:00:00 P EN Preadmit BERE MD, DANIELE De La Garza [facility] BIRCH,PALPITATION,LBBB [id number] 09/08/2014 13:29:00 Document Registration [id number] 09/08/2014 13:28:00 Document Registration [id number] 12/02/2012 09:09:00 Document Registration [id number] 06/05/2012 11:02:00 Document Registration [id number] 06/04/2012 07:10:00 Document Registration [id number] 03/08/2012 10:37:00 Document Registration [id number] 01/03/2012 17:16:00 Document Registration [id number] 01/02/2012 08:55:00 Document Registration [id number] 12/07/2011 09:21:00 Document Registration [id number] 10/05/2011 11:52:00 Document Registration [id number] 04/09/2009 08:51:00 Document Registration [id number] 01/13/2015 12:33:30 ACT Document Registration
--- OUTSIDE RECORDS SUMMARY | 2019-11-07 20:31 | XMS REPORT | Encounter Summary ---
Author Author [facility] Organization [facility] Address Unknown Phone Unavailable Care Team Providers Care Maitre D Name Role Phone Saleem Coon PCP Reason for Visit * Reason Comments test questions Encounter Details Care Team Description Date Type Department Yasmeen Goncalves, RN test questions 01/06/2019 Telephone [facility] [address] [place] [address] Social History Date Tobacco Use Types Packs/Day [...]
--- OUTSIDE RECORDS SUMMARY | 2019-11-07 20:31 | XMS REPORT | Encounter Summary ---
Author Author [facility] Organization [facility] Address Unknown Phone Unavailable Care Team Providers Care Bingo Worker Name Role Phone Coon Saleem PCP Encounter Details Care Team Description Date Type Department Forest Hawkins RN 05/23/2019 Telephone [facility] [address] [place] [address] Social History Date Tobacco Use Types Packs/Day [...]
--- OUTSIDE RECORDS SUMMARY | 2019-11-07 20:31 | XMS REPORT | Encounter Summary ---
Author Author [facility] Organization [facility] Address Unknown Phone Unavailable Care Team Providers Care Law Firm Consultant Name Role Phone Saleem Coon PCP Encounter Details Care Team Description Date Type Department Ruth Garcia MD [address] [place], [place] [id number] Laboratory exam ordered as part of [facility] general medical examination; Bradycardia 12/26/2018 Lab [facility] Hospit al [address] [place] [address] Social History Date Tobacco Use Types Packs/Day [...] CDT) Triiodothyronin 1.0 1.0 - 1.7 ng/mL [facility] Specimen Blood Performing Organization Address [facility] one Number [address] [address] LABORATORIES * T4 Free (12/26/2018 3:06 PM CDT) T4 Free 1.0 0.8 - 2.2 ng/dL [facility] Specimen Blood Performing Organization Address [facility] one Number [address] [address] LABORATORIES * Thyroid [place] (12/26/2018 3:06 PM CDT) Thyroid 0.14 (L) 0.47 - 4.68 uIU/mL [facility] Hormone LABORATORIES Specimen Blood Performing Organization Address [facility] one Number [address] [address] LABORATORIES * Thyroid Stimulating Hormone (12/26/2018 3:06 PM CDT) Thyroid 0.15 (L) 0.47 - 4.68 uIU/mL [facility] Hormone LABORATORIES Specimen Blood Performing Organization Address [facility] one Number [address] [address] LABORATORIES * Comprehensive Metabolic Panel (12/26/2018 3:06 PM CDT) Sodium 138 133 - 147 MEQ/L [facility] Potassium 4.6 3.5 - 5.3 MEQ/L [facility] Chloride 103 96 - 112 MEQ/L [facility] Carbon Dioxide 30 20 - 32 MEQ/L [facility] Anion Gap 6 5 - 17 [facility] Calcium 9.3 8.4 - 10.5 mg/dL [facility] Glucose 88 70 - 100 mg/dL [facility] Protein Total 6.5 6.0 - 8.2 g/dL [facility] Serum [facility] Albumin 3.7 3.5 - 5.0 g/dL [facility] Alkaline 85 42 - 140 IU/L [facility] Phosphatase [facility] LABORATORIES Alanine 25 0 - 34 IU/L [facility] Aminotransferas [facility] e LABORATORIES Aspartate 31 15 - 46 IU/L [facility] Bilirubin Total 0.4 0.2 - 1.3 mg/dL [facility] Blood Urea 19 7 - 26 mg/dL [facility] Nitrogen [facility] Creatinine 0.7 0.4 - 1.1 mg/dL [facility] eGFR Female AA 96 60 - 200 [facility] mL/min/1.73sq m [facility] eGFR Female 80 60 - 200 [facility] Non-AA mL/min/1.73sq m [facility] Specimen Blood Performing Organization Address City/State/Zipcode Ph one Number [address] [address] LABORATORIES * CBC and Diff (manual diff if necessary) (12/26/2018 3:06 PM CDT) WBC 6.66 4.00 - 11.00 TH/uL [facility] RBC 4.18 4.00 - 5.00 MIL/uL [facility] Hemoglobin 12.9 12.0 - 15.0 g/dL [facility] Hematocrit 39 36 - 45 % [facility] MCV 93 80 - 99 fL [facility] MCH 31 27 - 34 pg [facility] MCHC 33 32 - 36 % [facility] RDW 13.3 11.5 - 14.5 % [facility] Platelet Count 190 140 - 400 TH/uL [facility] MPV 12.2 9.4 - 12.3 fL [facility] Nucleated RBCs 0 0 - 0 /100 [facility] % Neutrophils 68 45 - 78 % [facility] %Lymphocytes 17 15 - 47 % [facility] %Monocytes 11 0 - 12 % [facility] %Eosinophils 2 0 - 7 % [facility] %Basophils 1 0 - 2 % [facility] % Imm Grans 0 0 - 1 % [facility] # Granulocytes 4.57 1.70 - 6.80 TH/uL [facility]IES # Lymphocytes 1.13 1.00 - 3.30 TH/uL [facility] # Monocytes 0.76 0.20 - 0.90 TH/uL [facility] # Eosinophils 0.16 0.00 - 0.40 TH/uL [facility] # Basophils 0.04 0.00 - 0.10 TH/uL [facility] Specimen Blood Performing Organization Address City/State/Zipcode Ph one Number [facility] [address] [place] [id number] LABORATORIES documented in this encounter Visit Diagnoses Diagnosis Laboratory exam ordered as part of rout ine general medical examination Laboratory examination ordered as part of a routine general medical examination Bradycardia Other specified cardiac dysrhythmias documented in this encounter
--- OUTSIDE RECORDS SUMMARY | 2019-11-07 20:31 | XMS REPORT | Encounter Summary ---
Author Author [facility] Organization [facility] Address Unknown Phone Unavailable Care Team Providers Care Gang Knife Fish Chopper Name Role Phone Saleem Coon PCP Reason for Referral * MRI/CAT/PET Scan (Routine) Referred By Contact Referred To Contact Status Reason Specialty Diagnoses / Procedures Ruth Garcia MD [address] [facility] [address] [place] [address] [facility] M[address] [place] [address] Closed Radiology Diagnoses Chronic diastolic congestive heart failure (HCC) Mitral valve insufficiency, unspecified etiology P rocedures CV MRI Cardiac w wo contrast * Electrophysiology (Routine) Referred By Contact Referred To Contact Status Reason Specialty Diagnoses / Procedures Ruth Garcia MD [address] [facility] [address] [place] [address] Closed Diagnoses Bradycardia P rocedures Cardiac Monitoring Patch * Diagnostic Imaging (Routine) Referred By Contact Referred To Contact Status Reason Specialty Diagnoses / Procedures Ruth Garcia MD [address] [facility] [address] [place] [address] Closed Diagnoses Chronic diastolic congestive heart failure (HCC) Mitral valve insufficiency, unspecified etiology P rocedures Electrocardiogram (ECG) Reason for Visit * Reason Comments Congestive Heart Failure Encounter Details Care Team Description Date Type Department Ruth Garcia MD [address] [facility] [address] [place] [address] [phone] Chronic diastolic congestive heart failu re (HCC) (Primary Dx); Mitral valve insufficiency, unspecified etiology; Bradycardia; Laboratory exam ordered as part of routine general medical examination; Exertional dyspnea; Pulmonary hypertension (HCC); Fatigue, unspecified type 12/26/2018 Office Visit [facility] [address] [place] [address] Social History Date Tobacco Use Types Packs/Day [...] tests. Please have this done today in [facility], [address] Zio patch. We will attempt [...] please first contact your pharmacy. For any [facility] scheduling questions, please landry apple . At [facility], high quality patient care is our top priority. To ensure our cardiovascular standards are continuously met, you may receive a survey via Rayku or text message, and we ask that [...] Garcia MD - 12/26/2018 1:45 PM CDT [facility] Sarah Appointment Date: 12/26/2018 Saleem Coon DO [address] [place] [id number] RE: Melanie Reeves : 1935 Visit provider: [...] No angiographic evidence of coronary artery disease ([facility]) FIBULA FRACTURE SURGERY HYSTERECTOMY RIGHT HEART CATH 03/24/2016 RA: 7. RV: 41/9. PA: 38/11/20. Wedge: 15 with V-waves to 25. LV: 143/1 3, Ascending aortic pressure: 145/61. CO/CI (Lolly): 3.6/2.1. LVEF 55%. ([facility]) TONSILLECTOMY AND ADENOIDECTOMY Final Medications: Current Outpatient [...] Thyroid 0.15 (L) 0.47 - 4.68 uIU/mL [facility] LABORATORIES Specimen Blood Performing Organization Address City/State/[facility] Ph one Number [facility] [address] [place] [address] LABORATORIES * Comprehensive Metabolic Panel (12/26/2018 3:06 PM CDT) Pathologist [facility] Sodium 138 133 - 147 MEQ/L [facility] Potassium 4.6 3.5 - 5.3 MEQ/L [facility] Chloride 103 96 - 112 MEQ/L [facility] Carbon Dioxide 30 20 - 32 MEQ/L [facility] Anion Gap 6 5 - 17 [facility] Calcium 9.3 8.4 - 10.5 mg/dL [facility] Glucose 88 70 - 100 mg/dL [facility] Protein Total 6.5 6.0 - 8.2 g/dL [facility] Serum [facility] Albumin 3.7 3.5 - 5.0 g/dL [facility] Alkaline 85 42 - 140 IU/L [facility] Phosphatase [facility] Alanine 25 0 - 34 IU/L [facility] Aminotransferas REGIONAL e LABORATORIES Aspartate 31 15 - 46 IU/L [facility] Aminotransferas [facility] e LABORATORIES Bilirubin Total 0.4 0.2 - 1.3 mg/dL [facility] Blood Urea 19 7 - 26 mg/dL [facility] Nitrogen [facility] Creatinine 0.7 0.4 - 1.1 mg/dL [facility] LABORATORIES eGFR Female AA 96 60 - 200 [facility] mL/min/1.73sq m [facility] eGFR Female 80 60 - 200 [facility] Non-AA mL/min/1.73sq m [facility] Specimen Blood Performing Organization Address City/[facility] Ph one Number [facility] [address] [place] [address] LABORATORIES * CBC and Diff (manual diff if necessary) (12/26/2018 3:06 PM CDT) WBC 6.66 4.00 - 11.00 TH/uL [facility] LABORATORIES RBC 4.18 4.00 - 5.00 MIL/uL [facility] Hemoglobin 12.9 12.0 - 15.0 g/dL [facility] Hematocrit 39 36 - 45 % [facility] MCV 93 80 - 99 fL [facility] MCH 31 27 - 34 pg [facility] MCHC 33 32 - 36 % [facility] RDW 13.3 11.5 - 14.5 % [facility] Platelet Count 190 140 - 400 TH/uL [facility] MPV 12.2 9.4 - 12.3 fL [facility] Nucleated RBCs 0 0 - 0 /100 [facility] % Neutrophils 68 45 - 78 % [facility] %Lymphocytes 17 15 - 47 % [facility] %Monocytes 11 0 - 12 % [facility] %Eosinophils 2 0 - 7 % [facility] %Basophils 1 0 - 2 % [facility] % Imm Grans 0 0 - 1 % [facility] # Granulocytes 4.57 1.70 - 6.80 TH/uL [facility] LABORATORIES # Lymphocytes 1.13 1.00 - 3.30 TH/uL [facility] LABORATORIES # Monocytes 0.76 0.20 - 0.90 TH/uL [facility] LABORATORIES # Eosinophils 0.16 0.00 - 0.40 TH/uL [facility] LABORATORIES # Basophils 0.04 0.00 - 0.10 TH/uL [facility] LABORATORIES Specimen Blood Performing Organization Address City/State/Zipcode Ph one Number [address] [place] [address] [address] LABORATORIES * POCT Lipid Panel (12/26/2018 2:44 [...] Specimen Narrative Performed At [facility] Test Date: 2018-12-26 Pat Name: MELANIE REEVES Department: [facility] Room: Gender: Female Emt/Dispatcher: ZAHEER : 1935 Requested By: RUTH GARCIA Order Number: [id number] Reading MD: Ruth Garcia Measurements Intervals [place] Rate: 79 P: 45 MD: 184 QRS: -10 QRSD: 118 T: 87 QT: 416 QTc: 477 Interpretive Statements SINUS RHYTHM INCOMPLETE LEFT BUNDLE BRANCH BLOCK Electronically Signed On 12-26-2018 22:47 :51 CDT by Ruth Garcia Procedure Note Interface, External Ris In 12/26/2018 10:48 PM CDT [facility] Test Date: 2018-12-26 Pat Name: MELANIE NOELELICIA Department: [facility] Room: Gender: Female Emt/Dispatcher: ZAHEER : 1935 Requested By: RUTH GARCIA Order Number: [id number] Reading MD: Ruth Garcia Measurements Intervals [place] Rate: 79 P: 45 MD: 184 QRS: -10 QRSD: 118 T: 87 [...]
--- OUTSIDE RECORDS SUMMARY | 2019-11-07 20:31 | XMS REPORT | Encounter Summary ---
Author Author [facility] Organization [facility] Address Unknown Phone Unavailable Care Team Providers Care Drupal Php Developer Name Role Phone Saleem Coon PCP Encounter Details Care Team Description Date Type Department Ruth Garcia MD [address] [facility] [address] [place] [address] 12/10/2018 Documentation [facility] [address] [place] [address] [address] [place] [address] Social History Date Tobacco Use Types Packs/Day [...]
--- OUTSIDE RECORDS SUMMARY | 2019-11-07 20:31 | XMS REPORT | Encounter Summary ---
Author Author [facility] Organization [facility] Address Unknown Phone Unavailable Care Team Providers Care Process Improvement Specialist Name Role Phone Saleem Coon PCP Encounter Details Care Team Description Date Type Department Ruth Garcia MD [address] [place] [address] [phone] 12/26/2018 Transcribe [facility] Hospit al Orders [address] [place] [address] Social History Date Tobacco Use Types Packs/Day [...]
--- OUTSIDE RECORDS SUMMARY | 2019-11-07 20:31 | XMS REPORT | Encounter Summary ---
Author Author [facility] Organization [facility] Address Unknown Phone Unavailable Care Team Providers Care Social Media Strategist Name Role Phone Saleem Coon PCP Encounter Details Care Team Description Date Type Department Yasmeen Goncalves RN 12/30/2018 Telephone [facility] [address] [place] [address] Social History Date Tobacco Use Types Packs/Day [...] mailing back in early. Discussed possibly trying [facility] er heart monitor/event recorder, and [...] placed on appt for scheduling order wit [employer]. Gave results and recs per Dr. Garcia of recent lab testing. Ruth Garcia MD P [facility] 1 Nurses - Team Blue Please [...]
--- OUTSIDE RECORDS SUMMARY | 2019-11-07 20:31 | XMS REPORT | Encounter Summary ---
Author Author [facility] Organization [facility] Address Unknown Phone Unavailable Care Team Providers Care Chief Maintenance Supervisor Name Role Phone Saleem Coon PCP Reason for Visit * Reason Comments Lab results Encounter Details Care Team Description Date Type Department Sheila Albarran RN Lab results 12/31/2018 Telephone [facility] [address] [place], [place] [address] Social History Date Tobacco Use Types Packs/Day [...]
--- OUTSIDE RECORDS SUMMARY | 2019-11-07 20:31 | XMS REPORT | Encounter Summary ---
Author Author [facility] Organization [facility] Address Unknown Phone Unavailable Care Team Providers Care Amr Physician Name Role Phone Saleem Coon PCP Encounter Details Care Team Description Date Type Department Ruth Garcia MD [address] [place] [address] [phone] Low TSH level; Hyperthyroidism 01/03/2019 Orders Only [facility] [address] [place] [address] Social History Date Tobacco Use Types Packs/Day [...]
--- OUTSIDE RECORDS SUMMARY | 2019-11-07 20:31 | XMS REPORT | Encounter Summary ---
Author Author [facility] Organization [facility] Address Unknown Phone Unavailable Care Team Providers Care Weigher Production Name Role Phone Saleem Coon PCP Encounter Details Care Team Description Date Type Department Ruth Garcia MD [address] [place] [address] [phone] 05/27/2019 Documentation [facility] [address] [place] [address] Social History Date Tobacco Use Types Packs/Day [...]
--- OUTSIDE RECORDS SUMMARY | 2019-11-07 20:31 | XMS REPORT | Encounter Summary ---
Author Author [facility] Organization [facility] Address Unknown Phone Unavailable Care Team Providers Care High Heel Builder Name Role Phone Saleem Coon PCP Reason for Visit * Reason Comments Appointment Encounter Details Care Team Description Date Type Department Ishmael Schultz, OMAR Appointment 12/05/2018 Telephone [facility] [address] [place] [address] Social History Date Tobacco Use Types Packs/Day [...] v/u and will await a call from [facility]. Routing to scheduling. * Telephone Encounter - [...]
--- OUTSIDE RECORDS SUMMARY | 2019-11-07 20:31 | XMS REPORT | Encounter Summary ---
Author Author [facility] Organization [facility] Address Unknown Phone Unavailable Care Team Providers Care Manager Furniture Name Role Phone Saleem Coon PCP Encounter Details Care Team Description Date Type Department Kenya Castañeda RN 12/24/2018 Abstract [facility] [address] [facility] [address] [place] [address] Social History Date Tobacco Use Types Packs/Day [...]
--- OUTSIDE RECORDS SUMMARY | 2019-11-07 20:31 | XMS REPORT | Clinical Summary ---
Author Author [facility] Organization [facility] Address Unknown Phone Unavailable Care Team Providers Care Lean Facilitator Name Role Phone Saleem Coon PCP Allergies [...] Dates Group Medicare MEDICARE MEDICARE xxxxxxxxxx Effective [place] PART A B for [place], [place] dates COMMERCIAL-NONCONTRACTED MISC xxxxxxxxx 2015- COMMERCIAL Present NONCONTRAC DHRUV MEDICARE REPLACEMENT PLAN HOME CARE xxxxxxxxx 03/17- MDCR Present REPLACEMEN T MISC PPS Advance Directives For more information, please contact: [phone] Patient Internal Medicine Physician Assistant Explanation Type Date Recorded Advance Directives and Living Will Power of Systems Integration Analyst Health Care Directive
--- OUTSIDE RECORDS SUMMARY | 2019-11-07 20:32 | XMS REPORT | Encounter Summary ---
Author Author [facility] Organization [facility] Address Unknown Phone Unavailable Care Team Providers Care Special Forces Communications Sergeant Name Role Phone Saleem Coon PCP Encounter Details Care Team Description Date Type Department Lionel Ambrocio MD [address] [facility] [address] [place] [address] [phone] 07/31/2016 Documentation [facility] [address] [place] [address] Social History Date Tobacco Use Types Packs/Day [...]
--- OUTSIDE RECORDS SUMMARY | 2019-11-07 20:32 | XMS REPORT | Encounter Summary ---
Author Author [facility] Organization [facility] Address Unknown Phone Unavailable Care Team Providers Care Food Science Technician Name Role Phone Saleem Coon PCP Encounter Details Care Team Description Date Type Department Ruth Garcia MD [address] [place] [address] [phone] 05/02/2018 Documentation [facility] [address] [place] [address] Social History Date Tobacco Use Types Packs/Day [...]
--- OUTSIDE RECORDS SUMMARY | 2019-11-07 20:32 | XMS REPORT | Encounter Summary ---
Author Author [facility] Organization [facility] Address Unknown Phone Unavailable Care Team Providers Care National Park Ranger Name Role Phone Saleem Coon PCP Encounter Details Care Team Description Date Type Department Vicente Muro MD [address] [facility] [address] [place] [phone] 06/30/2016 Documentation [facility] [address] [place] [address] [address] [place] [id number] Social History Date Tobacco Use Types Packs/Day [...]
--- OUTSIDE RECORDS SUMMARY | 2019-11-07 20:32 | XMS REPORT | Encounter Summary ---
Author Author [facility] Organization [facility] Address Unknown Phone Unavailable Care Team Providers Care Systems Navigator Name Role Phone CoonSaleem munguia PCP Reason for Visit * Reason Comments Lab results Encounter Details Care Team Description Date Type Department Forest Hawkins RN Lab results 04/02/2018 Telephone [facility] [address] [place] [address] Social History Date Tobacco Use Types Packs/Day [...]
--- OUTSIDE RECORDS SUMMARY | 2019-11-07 20:32 | XMS REPORT | Encounter Summary ---
Author Author [facility] Organization [facility] Address Unknown Phone Unavailable Care Team Providers Care Gambling Counsellor Name Role Phone Saleem Coon PCP Encounter Details Care Team Description Date Type Department Sarai Rodriguez RN 05/13/2018 Abstract [facility] [address] [place] [address] Social History Date Tobacco Use Types Packs/Day [...] Record (04/05/2018) Impressions Performed At [facility] ([employer]) IMPRESSION: 1. Sinus rhythm with brief periods of m ild sinus bradycardia and periods of sinus tachycardia. 2. Isolated PVCs. 3. Occasional PACs with 3 very brief (3 - to 5-beat) runs of supraventricular tachycardia. 4. No pauses. * Echo Outside Record (04/05/2018) Ejection Fraction Impressions Performed At [facility] ([employer]) Result Impression: 1. Normal left ventricular size [...]
--- OUTSIDE RECORDS SUMMARY | 2019-11-07 20:32 | XMS REPORT | Encounter Summary ---
Author Author [facility] Organization [facility] Address Unknown Phone Unavailable Care Team Providers Care Supervisor Inspection Name Role Phone Saleem Coon PCP Reason for Visit * Reason Comments Lab results bnp, thyroid results Encounter Details Care Team Description Date Type Department Tabatha Fagan RN Lab results (bnp, thyroid results) 11/02/2016 Telephone [facility] [address] [place] [address] Social History Date Tobacco Use Types Packs/Day [...] Tabatha Fagan RN - 11/02/2016 5:09 PM ANIMAL REHABILITATOR 11/02 call to patient to inform of lab results, was able to leave a detailed messa ge. Will send results toPCP AL REHABILITATOR * Telephone Encounter - Tabatha Fagan RN - 11/02/2016 5:08 PM ANIMAL REHABILITATOR ----- Message from Sommer Clarke MD sent at 11/01/2016 4:38 PM ANIMAL REHABILITATOR ----- Labwork all looks good, how is she doing with low dose diuretic? AL REHABILITATOR documented in this encounter Plan of Treatment Not on filedocumented as of this encounter Visit Diagnoses Not on filedocumented in this encounter
--- OUTSIDE RECORDS SUMMARY | 2019-11-07 20:32 | XMS REPORT | Encounter Summary ---
Author Author [facility] Organization [facility] Address Unknown Phone Unavailable Care Team Providers Care Steel Erector Name Role Phone Saleem Coon PCP Reason for Referral * MRI/CAT/PET Scan (Routine) Referred By Contact Referred To Contact Status Reason Specialty Diagnoses / Procedures Ruth Garcia MD [address] [facility] [address] [place] [address] [facility] [address] [place] [address] Canceled Radiology Diagnoses Mitral valve insufficiency, unspecified etiology Exertional dyspnea P rocedures CV MRI Cardiac w wo contrast Reason for Visit * Reason Comments Follow-up Congestive Heart Failure Encounter Details Care Team Description Date Type Department Ruth Garcia MD [address] [facility] [address] [place] [address] [phone] Mitral valve insufficiency, unspecified etiology (Primary Dx); Exertional dyspnea 05/15/2018 Office Visit [facility] [address] [facility] [address] [place] [address] Social History Date Tobacco Use Types Packs/Day [...] results. Please call the Nurse Line at [phone] (Sarah Scodix Team). with any questions or concerns. For medication refill needs, please first contact your pharmacy. For any [facility] scheduling questions, please landry apple . At [facility], high quality patient care is our top priority. To ensure our cardiovascular standards are continuously met, you may receive a survey via [place] or text message, and we ask that you please take the time to fill it out. We strive to ensure you are very satisfied with every visit. Thank you in advance for taking the time to fill this out. It was a pleasure to meet you. documented in this encounter Progress Notes * Ruth Garcia MD - 05/15/2018 10:20 AM CDT [facility] Sarah Appointment Date: 05/15/2018 Saleem Coon DO [address] [place] [id number] RE: Melanie Melissa : 1935 Visit provider: [...] Recently, Ms. Melissa underwent cardiac evaluation in [place] for worsening fatigu e and ectopy. A [...] No angiographic evidence of coronary artery disease. ([facility]) HYSTERECTOMY RIGHT HEART CATH 03/24/2016 RA: 7. RV: 41/9. PA: 38/11/20. Wedge: 15 with V-waves to 25. LV: 143/13, Ascend ing aortic pressure: 145/61. CO/CI (Lolly): 3.6/2.1. LVEF 55%. ([facility]) TONSILLECTOMY Final Medications: Current Outpatient Prescriptions [...] control. 4. 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 Plan: [...] to contact me. Sincerely, Ruth Garcia MD /[facility] documented in this encounter Plan of Treatment [...]
--- OUTSIDE RECORDS SUMMARY | 2019-11-07 20:32 | XMS REPORT | Encounter Summary ---
Author Author [facility] Organization [facility] Address Unknown Phone Unavailable Care Team Providers Care Case Packer And Sealer Name Role Phone Coon Saleem PCP Reason for Visit * Reason Comments Procedure Instructions LANE Encounter Details Care Team Description Date Type Department Tabatha Fagan RN Procedure Instructions (LANE) 10/31/2016 Telephone [facility] [address] [place] [address] Social History Date Tobacco Use Types Packs/Day [...] Tabatha Fagan RN - 10/31/2016 4:33 PM INDUSTRIAL RENDERER 37 taught while in office and hard copy of instructions given. Gas Transfer Operator, Reza colvin was not able to give a date/time/location before leaving. She is aware that she will be contacted with this information. Note that blanks will need to be f illed once information obtained: Pt scheduled for LANE , scheduled , to arrive at orde red by JORJE. Verified allergies, reviewed medicatons. EMAIL SENT TO [facility] BRICK TENDER DARIELA Saldivar PATIENT IS ANAPHLAXIS TO ALL CARMELA Provided following instructions: NPO after MN prior to procedure. Please hold the following medications: LASIX THE MORNING OF PROCEDURE, take all other medications as you normally would, though only with small sips of water. You will not be allowed to drive yourself home, so please make arrangements for a ride. Your truck driver flatbed is asked to remain in the waiting area until your procedure has been completed. You should NOT drive or operate machinery for at least 12-14 hours following the procedure, as there may be residual effects from the sedative. Following the procedure, avoid food and beverages, especially hot liquids, until sensation has returned to the throat. This usually occurs within an hour. Please contact [phone] nurse line with further questions. Last office visit 11/01/2015 Orders entered in [facility] Updated procedure log . Mailed instructions to patient --GIVEN TO PATIENT AT TIME OF VISIT 10/31/16. STRIAL RENDERER documented in this encounter Plan of Treatment Not on filedocumented as of this encounter Visit Diagnoses Not on filedocumented in this encounter
--- OUTSIDE RECORDS SUMMARY | 2019-11-07 20:32 | XMS REPORT | Encounter Summary ---
Author Author [facility] Organization [facility] Address Unknown Phone Unavailable Care Team Providers Care Instant Printer Operator Name Role Phone Saleem Coon PCP Reason for Visit * Reason Comments LANE cancellation Encounter Details Care Team Description Date Type Department Lorna Rojas RN LANE cancellation 11/06/2016 Telephone [facility] [address] [place] [address] Social History Date Tobacco Use Types Packs/Day [...] for evaluation. Pt. V/u. Made call to [facility] and spoke with Order entered for echo and faxed to [facility] department at [phone] with request to send CD of echo to [employer] for viewing. * Telephone Encounter - Sommer Clarke MD - 11/06/2016 5:22 PM CDT Doesn't sound like lasix helped. Let's wait to see what TTE shows, ok to have a t [facility] as long as I can get films to review images personally prior to office v isit to review. * Telephone Encounter - Lorna Rojas RN - 11/06/2016 4:57 PM CDT Received following email from [facility]: Lets change to TTE for mitral valve [...] proceed to the ER. Also discussed that [facility] is ordering an echo, pt wants to know if she can have it done in [place] at [facility]. Will route to [facility] for recs. Will await ordering echo until hear from [facility] on if can have done at [facility]. * Telephone Encounter - Lorna Rojas [...]
--- OUTSIDE RECORDS SUMMARY | 2019-11-07 20:32 | XMS REPORT | Encounter Summary ---
Author Author [facility] Organization [facility] Address Unknown Phone Unavailable Care Team Providers Care Manufacturing Manager Name Role Phone Saleem Coon PCP Reason for Visit * Reason Comments JEREMIAH Encounter Details Care Team Description Date Type Department Inessa Haile, RN JEREMIAH 11/16/2016 Telephone [facility] [address] [place] [address] Social History Date Tobacco Use Types Packs/Day [...]
--- OUTSIDE RECORDS SUMMARY | 2019-11-07 20:32 | XMS REPORT | Encounter Summary ---
Author Author [facility] Organization [facility] Address Unknown Phone Unavailable Care Team Providers Care Towboat Pilot Name Role Phone Saleem Coon PCP Reason for Referral * Diagnostic Imaging (Routine) Referred By Contact Referred To Contact Status Reason Specialty Diagnoses / Procedures Shawn Candelario MD [address] [facility] [address] [place] [address] Closed Diagnoses Chronic diastolic (congestive) heart failure (HCC) P rocedures Electrocardiogram (ECG) Reason for Visit * Reason Comments Hypertension Encounter Details Care Team Description Date Type Department Shawn Candelario MD [address] [facility] [address] [place] [address] Chronic diastolic (congestive) heart siobhan lure (HCC) (Primary Dx); Mitral valve insufficiency, unspecified etiology; Pulmonary hypertension (HCC); Hypothyroidism, unspecified type 10/31/2016 Office Visit [facility] [address] [place] [address] [address] [place] [address] Social History Date Tobacco Use Types Packs/Day [...] Comments Vital Sign 126/72 10/31/2016 3:09 PM SPRAYER LEATHER Blood Pressure 74 10/31/2016 3:09 PM SPRAYER LEATHER reg Pulse - - Temperature - - Respiratory Rate - - Oxygen Saturation - - Inhaled Oxygen Concentration 62.1 kg (137 lb) 10/31/2016 3:09 PM SPRAYER LEATHER Weight 157.5 cm (5' 2") 10/31/2016 3:09 PM SPRAYER LEATHER Height 25.06 10/31/2016 3:09 PM SPRAYER LEATHER Body Mass Index documented in this encounter Patient Instructions * Patient Instructions* Tabatha Fagan, RN - 10/31/2016 3:44 PM SPRAYER LEATHER "We want to know how we are [...] them in 10 business days, please call [phone] 3. Have ordered labs that need to be done: THYROID CASCADE, CBC, CMP, IRON STUD IES, BNP. PLEASE HAVE DONE TODAY, [facility], [address] 4[address] Dr Candelario will review the lab results and her nurses should call you with an y recommendations. If you have not heard from them in 3-5 days AFTER your get y our blood drawn, please call [phone] 5. To help with pressures in your [...] o feet and anklees or bloating in abdomen--[phone] Follow up with Dr Candelario in [...] catheterization, if m ore information is needed [id number] [employer] [place]. [address] [place] [address] 7. All rights reserved. This information is [...] the test. Dont eat or drink for6 [id number] before the test. This includes water . [...] your follow-up appointment. Your next appointment is: [employer]. [address] [place] [address] 7. All rights reserved. This information is not intended as a substitute for pro fessional medical care. Always follow your healthcare professional's instruction s. YER LEATHER documented in this encounter Progress Notes * Shawn Candelario MD - 10/31/2016 3:20 PM SPRAYER LEATHER [facility] CHERYL Appointment Date: 10/31/2016 Saleem Coon DO [address] [place] [id number] RE: Melanie Reeves : 1935 Visit provider: [...] No angiographic evidence of coronary artery disease. ([facility]) Right heart cath 03/24/2016 RA: 7. RV: 41/9. PA: 38/11/20. Wedge: 15 with V-waves to 25. LV: 143/13, Ascen ding aortic pressure: 145/61. CO/CI (Lolly): 3.6/2.1. LVEF 55%. ([facility]) Appendectomy Hysterectomy Tonsillectomy Final Medications: Current Outpatient Prescriptions Medication Sig Dispense Refill furosemide (LASIX) 20 MG tablet Take 0.5 tablets (10 mg total) by mouth sterling y. 90 tablet 3 thyroid, pork, (ARMOUR) 60 mg Tab tablet Take 60 mg by mouth daily. No current facility-administered medications for this visit. Allergies Allergen Reactions Anoop-1 Anaphylaxis All CAMRELA--lidocaine, Novocain Lasix [Furosemide] Anaphylaxis Naltrexone Analogues Family [...] the setting of jesus vular disease. a. [place] [employer] functional class IIIB. b. [employer] [place] [employer] stage C. c. Hypervolemic [...] Routine 10/31/2016 Chronic diastol ic 3:13 PM SPRAYER LEATHER (congestive) heart failure (HCC) documented in this encounter Results * NTproBNP (10/31/2016 4:30 PM SPRAYER LEATHER) NTproBNP 190 pg/mL [facility] Comment: REGIONAL NT-proBNP Reference Ranges: LABORATORIES <50 yr <450 pg/mL 50-75 yr <900 pg/mL >75 yr <1800 pg/mL A cutoff value of 1200 pg/mL is recommended in patients 50 to 70 years of age with a GFR between 30 and 60. NT-proBNP is unreliable in patients with GFR <30. Specimen Blood Performing Organization Address [facility] one Number [address] [address] LABORATORIES * Thyroid [place] (10/31/2016 4:30 PM SPRAYER LEATHER) Thyroid 0.90 0.47 - 4.68 uIU/mL [facility] Stimulating [facility] Hormone LABORATORIES Specimen Blood Performing Organization Address City/[facility] one Number [address] [address] LABORATORIES * Comprehensive Metabolic Panel (10/31/2016 4:30 PM SPRAYER LEATHER) Pathologist [facility] Sodium 140 133 - 147 MEQ/L [facility] Potassium 4.6 3.5 - 5.3 MEQ/L [facility] Chloride 101 96 - 112 MEQ/L [facility] Carbon Dioxide 31 20 - 32 MEQ/L [facility] Anion Gap 9 5 - 17 [facility] Calcium 9.5 8.4 - 10.5 mg/dL [facility] Glucose 118 (H) 70 - 100 mg/dL [facility] Protein Total 7.1 6.0 - 8.2 g/dL [facility] Serum [facility] Albumin 4.1 3.5 - 5.0 g/dL [facility] Alkaline 99 42 - 140 IU/L [facility] Phosphatase REGIONAL LABORATORIES Alanine 14 13 - 69 IU/L [facility] Aminotransferas [facility] e LABORATORIES Aspartate 27 15 - 46 IU/L [facility] Bilirubin Total 0.6 0.2 - 1.3 mg/dL [facility] Blood Urea 17 7 - 26 mg/dL [facility] Creatinine 0.8 0.4 - 1.1 mg/dL [facility] eGFR Female AA 83 60 - 200 [facility] Comment: REGIONAL Chronic Kidney Disease less LABORATORIES than 60 mL/min/1.73 sq.m Kidney failure less than 15 mL/min/1.73 sq.m eGFR Female 69 60 - 200 [facility] Non-AA Comment: REGIONAL Chronic Kidney Disease less LABORATORIES than 60 mL/min/1.73 sq.m Kidney failure less than 15 mL/min/1.73 sq.m Specimen Blood Performing Organization Address City/State/Zipcode Ph one Number [address] [phone] LABORATORIES * CBC and Diff (manual diff if necessary) (10/31/2016 4:30 PM SPRAYER LEATHER) WBC 6.63 4.00 - 11.00 TH/uL [facility] RBC 4.36 4.00 - 5.00 MIL/uL [facility] Hemoglobin 13.3 12.0 - 15.0 g/dL [facility] Hematocrit 40 36 - 45 % [facility] MCV 92 80 - 99 fL [facility] MCH 31 27 - 34 pg [facility] MCHC 33 32 - 36 % [facility] RDW 13.0 9.0 - 14.5 % [facility] Platelet Count 214 140 - 400 TH/uL [facility] MPV 11.7 9.4 - 12.3 fL [facility] Nucleated RBCs 0 0 - 0 /100 [facility] % Neutrophils 60 45 - 78 % [facility] %Lymphocytes 26 15 - 47 % [facility] %Monocytes 12 0 - 12 % [facility] %Eosinophils 2 0 - 7 % [facility] LABORATORIES %Basophils 1 0 - 2 % [facility] LABORATORIES % Imm Grans 0 0 - 1 % [facility] LABORATORIES # Granulocytes 3.96 1.70 - 6.80 TH/uL [facility] LABORATORIES # Lymphocytes 1.73 1.00 - 3.30 TH/uL [facility] LABORATORIES # Monocytes 0.76 0.20 - 0.90 TH/uL [facility] LABORATORIES # Eosinophils 0.13 0.00 - 0.40 TH/uL [facility] LABORATORIES # Basophils 0.04 0.00 - 0.10 TH/uL [facility] LABORATORIES Specimen Blood Performing Organization Address City/State/Zipcode Ph one Number [address] [address] LABORATORIES * Electrocardiogram (ECG) (10/31/2016 3:13 PM SPRAYER LEATHER) Specimen Narrative Performed At [facility] Consult[facility]heryl Test Date: 2016-10-31 Pat Name: MELANIE REEVES Department: [facility] Room: Gender: Female Water Treatment Specialist: [id number] : 1935 Requested By: SHAWN CANDELARIO Order Number: [id number] Reading MD: Shawn Candelario Measurements Intervals Freedom Rate: 74 P: 64 FL: 180 QRS: 10 QRSD: 84 T: 61 QT: 384 QTc: 426 Interpretive Statements SINUS RHYTHM Electronically Signed On 10-31-2016 18:06 :17 SPRAYER LEATHER by Shawn Candelario Procedure Note Interface, External Ris In - 10/31/2016 6:[address] [facility] Test Date: 2016-10-31 Pat Name: MELANIE REEVES Department: [facility] Room: Gender: Female Water Treatment Specialist: [id number] : 1935 Requested By: SHAWN CANDELARIO Order Number: [id number] Reading MD: Shawn Candelario Measurements Intervals Freedom Rate: 74 P: 64 FL: 180 QRS: 10 QRSD: 84 T: 61 QT: 384 QTc: 426 Interpretive Statements SINUS RHYTHM Electronically Signed On 10-31-2016 18:06:17 SPRAYER LEATHER by Shawn Candelario Performing Organization Address City/State/Zipcode Ph one Number [email or web address] documented in this encounter Visit Diagnoses Diagnosis Chronic diastolic (congestive) heart fa ilure (HCC) Mitral valve insufficiency, unspecified etiology Pulmonary hypertension (HCC) Other chronic pulmonary heart diseases Hypothyroidism, unspecified type documented in this encounter
--- OUTSIDE RECORDS SUMMARY | 2019-11-07 20:32 | XMS REPORT | Encounter Summary ---
Author Author [facility] Organization [facility] Address Unknown Phone Unavailable Care Team Providers Care Oil Fire Specialist Name Role Phone Saleem Coon PCP Encounter Details Care Team Description Date Type Department Ronda Bashir RN 03/26/2018 Abstract [facility] [address] [facility] [address] [place] [address] Social History Date Tobacco Use Types Packs/Day [...]
--- OUTSIDE RECORDS SUMMARY | 2019-11-07 20:32 | XMS REPORT | Encounter Summary ---
Author Author [facility] Organization [facility] Address Unknown Phone Unavailable Care Team Providers Care Industrial Sociologist Name Role Phone Saleem Coon PCP Encounter Details Care Team Description Date Type Department Sommer Clarke MD [address] [facility] [address] [place] [address] 10/19/2016 Documentation [facility] [address] [facility] [address] [place] [id number] Social History Date Tobacco Use Types Packs/Day [...] Routine 11/10/2016 LAB SUMMARY 10/30/2016 12:59 PM METAL CANS SUPERVISOR LAB SUMMARY 10/27/2016 3:28 PM METAL CANS SUPERVISOR LAB SUMMARY 10/27/2016 3:28 PM METAL CANS SUPERVISOR LAB SUMMARY 10/27/2016 3:28 PM METAL CANS SUPERVISOR LAB SUMMARY 10/27/2016 3:28 PM METAL CANS SUPERVISOR LAB SUMMARY 10/27/2016 3:27 PM METAL CANS SUPERVISOR GLUCOSE Routine 05/12/2016 CT OUTSIDE RECORD Routine 04/07/2016 CORONARY ANGIOGRAM Routine 03/24/2016 OUTSIDE RECORD US OUTSIDE RECORD Routine 11/18/2015 documented in this encounter Results * Echo Outside Record (11/10/2016) Ejection Fraction Specimen Impressions Performed At Mild mitral regurgitation and mild tric uspid regurgitation and mild pulmonic regurgitation. Estimated PAP normal. No rmal cardiac chambers and cardiac contractility. [facility] Medical Narrative Performed At This result has an attachment that is n ot available. * LAB SUMMARY (10/30/2016 12:59 PM METAL CANS SUPERVISOR) Narrative Performed At This result has an attachment that is n ot available. Ordered by an unspecified provider. * LAB SUMMARY (10/27/2016 3:28 PM METAL CANS SUPERVISOR) Narrative Performed At This result has an attachment that is n ot available. Ordered by an unspecified provider. * LAB SUMMARY (10/27/2016 3:28 PM METAL CANS SUPERVISOR) Narrative Performed At This result has an attachment that is n ot available. Ordered by an unspecified provider. * LAB SUMMARY (10/27/2016 3:28 PM METAL CANS SUPERVISOR) Narrative Performed At This result has an attachment that is n ot available. Ordered by an unspecified provider. * LAB SUMMARY (10/27/2016 3:28 PM METAL CANS SUPERVISOR) Narrative Performed At This result has an attachment that is n ot available. Ordered by an unspecified provider. * LAB SUMMARY (10/27/2016 3:27 PM METAL CANS SUPERVISOR) Narrative Performed At This result has an [...] angiographic evidence of coronary ar elisa disease. ([facility]) Narrative Performed At This result has an [...]
--- OUTSIDE RECORDS SUMMARY | 2019-11-07 20:32 | XMS REPORT | Encounter Summary ---
Author Author [facility] Address Unknown Phone Unavailable Care Team Providers Care Pool Nurse Name Role Phone Saleem Coon PCP Encounter Details Care Team Description Date Type Department Ashley Pinzon RN 03/26/2018 Telephone [facility] [address] [place] [address] Social History Date Tobacco Use [...] like to have lab drawn today at [facility] lab in [place] rather than comin g to [facility] earlier than appointment to have drawn. Stated that would be fine. Lab s ordered and faxed to [phone] with confirmation fax. * Telephone Encounter - Sommer Clarke MD - 03/26/2018 12:22 PM CDT Yes would like CBC, BMP, BNP, Mg, stay on lasix until seen tomorrow. * Telephone Encounter - Ashley Piznon RN - 03/26/2018 10:38 AM CDT Received life transfer call from equipment scheduler stating the daughter of the pt is [...] any ordered labs to be faxed to [facility] in [place], [place] pt voiced agreement with plans. Will [...] encounter Results * NTproBNP (03/26/2018) Pathologist [facility] NTproBNP 142 (A) 0 - 100 [facility] Specimen Blood Performing Organization Address [facility] one Number [facility] [address] [place] [address] * Magnesium (03/26/2018) [facility] Magnesium 2.1 1.6 - 2.6 mg/dL [facility] Specimen Blood Performing Organization Address [facility] one Number [facility] [address] [place] [address] * CBC and Diff (manual diff if necessary) (03/26/2018) [facility] RBC 4.33 3.6 - 5.00 [facility] [...] is n ot available. Performing Organization Address [facility] one Number [facility] [address] [place] [phone] * Basic Metabolic Panel (03/26/2018) Calcium [...] Address City/State/Zipcode Ph one Number [facility] [address] [place] [phone] documented in this encounter Visit Diagnoses Diagnosis Other fatigue Palpitations Other chest pain documented in this encounter
--- OUTSIDE RECORDS SUMMARY | 2019-11-07 20:32 | XMS REPORT | Encounter Summary ---
Author Author [facility] Organization [facility] Address Unknown Phone Unavailable Care Team Providers Care Diving Instructor Name Role Phone Saleem Coon PCP Encounter Details Care Team Description Date Type Department Sommer Clarke MD [address] [facility] [address] [place] [address] [phone] 12/05/2016 Documentation [facility] [address] [facility] [address] [address] [place] [address] Social History Date Tobacco Use Types Packs/Day [...]
--- OUTSIDE RECORDS SUMMARY | 2019-11-07 20:32 | XMS REPORT | Encounter Summary ---
Author Author [facility] Organization [facility] Address Unknown Phone Unavailable Care Team Providers Care Data Solutions Architect Name Role Phone Saleem Coon PCP Encounter Details Care Team Description Date Type Department Sommer Clarke MD [address] [facility] [address] [place] [address] [phone] Annual physical exam; Mitral valve insufficiency, unspecified etiology 10/31/2016 Lab [facility] [address] [place] [address] Social History Date Tobacco Use Types Packs/Day [...] 10/31/2016 Annual physica l exam 4:30 PM KILN PACKER Mitral valve insufficiency, unspecified etiology NTPROBNP Routine 10/31/2016 Annual physical exam 4:30 PM KILN PACKER Mitral valve insufficiency, unspecified etiology IRON/TRANSFERRIN Routine 10/31/2016 4:30 PM KILN PACKER FERRITIN Routine 10/31/2016 4:30 PM KILN PACKER COMPREHENSIVE METABOLIC Routine 10/31/2016 Annual physical exam PANEL 4:30 PM KILN PACKER Mitral valve insufficiency, unspecified etiology CBC AND DIFF (MANUAL DIFF Routine 10/31/2016 Priscilla al physical exam IF NECESSARY) 4:30 PM KILN PACKER Mitral valve insufficiency, unspecified etiology documented in this encounter Results * Ferritin (10/31/2016 4:30 PM KILN PACKER) Ferritin 30 20 - 200 ng/mL [facility] Specimen Performing Organization Address [facility] one Number [address] [address] LABORATORIES * Iron/Transferrin (10/31/2016 4:30 PM KILN PACKER) Iron 110 50 - 180 ug/dL [facility] Transferrin 308 206 - 381 mg/dL [facility] Total 370 204 - 408 ug/dL [facility] Iron-Binding [facility] LABORATORIES Iron/Transferri 30 15 - 50 % [facility] n % Saturation [facility] Specimen Performing Organization Address [facility] one Number [address] [address] LABORATORIES * NTproBNP (10/31/2016 4:30 PM KILN PACKER) NTproBNP 190 pg/mL [facility] Comment: REGIONAL NT-proBNP Reference Ranges: LABORATORIES <50 yr <450 pg/mL 50-75 yr <900 pg/mL >75 yr <1800 pg/mL A cutoff value of 1200 pg/mL is recommended in patients 50 to 70 years of age with a GFR between 30 and 60. NT-proBNP is unreliable in patients with GFR <30. Specimen Blood Performing Organization Address [facility] one Number [address] [address] LABORATORIES * Thyroid Alpine (10/31/2016 4:30 PM KILN PACKER) Thyroid 0.90 0.47 - 4.68 uIU/mL [facility] Stimulating [facility] Hormone LABORATORIES Specimen Blood Performing Organization Address [facility] one Number [address] [address] LABORATORIES * Comprehensive Metabolic Panel (10/31/2016 4:30 PM KILN PACKER) Sodium 140 133 - 147 MEQ/L [facility] Potassium 4.6 3.5 - 5.3 MEQ/L [facility] Chloride 101 96 - 112 MEQ/L [facility] Carbon Dioxide 31 20 - 32 MEQ/L [facility] Anion Gap 9 5 - 17 [facility] Calcium 9.5 8.4 - 10.5 mg/dL [facility] Glucose 118 (H) 70 - 100 mg/dL [facility] Protein Total 7.1 6.0 - 8.2 g/dL [facility] Serum [facility] Albumin 4.1 3.5 - 5.0 g/dL [facility] Alkaline 99 42 - 140 IU/L [facility] Phosphatase [facility] Alanine 14 13 - 69 IU/L [facility] Aminotransferas [facility] e LABORATORIES Aspartate 27 15 - 46 IU/L [facility] Bilirubin Total 0.6 0.2 - 1.3 mg/dL [facility] Blood Urea 17 7 - 26 mg/dL [facility] Nitrogen [facility] Creatinine 0.8 0.4 - 1.1 mg/dL [facility] eGFR Female AA 83 60 - 200 [facility] Comment: REGIONAL Chronic Kidney Disease less LABORATORIES than 60 mL/min/1.73 sq.m Kidney failure less than 15 mL/min/1.73 sq.m eGFR Female 69 60 - 200 [facility] Non-AA Comment: REGIONAL Chronic Kidney Disease less LABORATORIES than 60 mL/min/1.73 sq.m Kidney failure less than 15 mL/min/1.73 sq.m Specimen Blood Performing Organization Address City/State/Zipcode Ph one Number [facility] [address] [place] [id number] LABORATORIES * CBC and Diff (manual diff if necessary) (10/31/2016 4:30 PM KILN PACKER) WBC 6.63 4.00 - 11.00 TH/uL [facility] LABORATORIES RBC 4.36 4.00 - 5.00 MIL/uL [facility] Hemoglobin 13.3 12.0 - 15.0 g/dL [facility] Hematocrit 40 36 - 45 % [facility] MCV 92 80 - 99 fL [facility] MCH 31 27 - 34 pg [facility] MCHC 33 32 - 36 % [facility] RDW 13.0 9.0 - 14.5 % [facility] Platelet Count 214 140 - 400 TH/uL [facility] MPV 11.7 9.4 - 12.3 fL [facility] Nucleated RBCs 0 0 - 0 /100 [facility] % Neutrophils 60 45 - 78 % [facility] %Lymphocytes 26 15 - 47 % [facility] %Monocytes 12 0 - 12 % [facility] %Eosinophils 2 0 - 7 % [facility] %Basophils 1 0 - 2 % [facility] % Imm Grans 0 0 - 1 % [facility] # Granulocytes 3.96 1.70 - 6.80 TH/uL [...] Performing Organization Address City/State/Zipcode Ph one Number [address] [address] LABORATORIES documented in this encounter Visit Diagnoses Diagnosis Annual physical exam Routine general medical examination at a health care facility Mitral valve insufficiency, unspecified etiology documented in this encounter
--- OUTSIDE RECORDS SUMMARY | 2019-11-07 20:32 | XMS REPORT | Encounter Summary ---
Author Author [facility] Organization [facility] Address Unknown Phone Unavailable Care Team Providers Care Talent Rep Name Role Phone Saleem Coon PCP Encounter Details Care Team Description Date Type Department Ruth Garcia MD [address] [facility] [address] [place] [address] 04/05/2018 Documentation [facility] [address] [place] [address] [address] [place] [id number] Social History Date Tobacco Use Types Packs/Day [...]
--- OUTSIDE RECORDS SUMMARY | 2019-11-07 20:32 | XMS REPORT | Encounter Summary ---
Author Author [facility] Organization [facility] Address Unknown Phone Unavailable Care Team Providers Care Vp Name Role Phone Saleem Coon PCP Reason for Visit * Reason Comments Symptoms Encounter Details Care Team Description Date Type Department Aracelis Lopez RN Symptoms 12/06/2016 Telephone [facility] [address] [place] [address] Social History Date Tobacco Use Types Packs/Day [...] Patient asking if JORJE h tiffany reviewed [facility] echo? Indicated to her I gave her [...]
--- OUTSIDE RECORDS SUMMARY | 2019-11-07 20:32 | XMS REPORT | Encounter Summary ---
Author Author [facility] Organization [facility] Address Unknown Phone Unavailable Care Team Providers Care Full Fashioned Garment Knitter Name Role Phone Saleem Coon PCP Reason for Referral * Cardiac Cath (Routine) Referred By Contact Referred To Contact Status Reason Specialty Diagnoses / Procedures [facility] Cardio Cl [address] [place] [address] Closed Procedures Right Heart Catheterization Encounter Details Care Team Description Date Type Department Tiffanie Solis RN 10/28/2016 Abstract [facility] [address] [place], [place] [id number] Social History Date Tobacco Use Types Packs/Day [...] 145/61. CO/C I (Lolly): 3.6/2.1. LVEF 55%. ([facility]) * Lipid Panel (03/23/2016) Triglycerides 80 40 [...]
--- OUTSIDE RECORDS SUMMARY | 2019-11-07 20:32 | XMS REPORT | Encounter Summary ---
Author Author [facility] Organization [facility] Address Unknown Phone Unavailable Care Team Providers Care Metal Template Maker Name Role Phone Saleem Coon PCP Encounter Details Care Team Description Date Type Department Mimi Qureshi MD [address] [facility] [address] [place] [address] 03/26/2018 Documentation [facility] [address] [facility] [address] [place] [id number] Social History Date Tobacco Use Types Packs/Day [...]
--- OUTSIDE RECORDS SUMMARY | 2019-11-07 20:32 | XMS REPORT | Encounter Summary ---
Author Author [facility] Organization [facility] Address Unknown Phone Unavailable Care Team Providers Care Behavioral Assistant Name Role Phone CoonSaleem munguia PCP Reason for Visit * Reason Comments Returning patient call Encounter Details Care Team Description Date Type Department Tabatha Hawkins, RN Returning patient call 06/03/2018 Telephone [facility] [address] [place] [address] Social History Date Tobacco Use Types Packs/Day [...]
--- OUTSIDE RECORDS SUMMARY | 2019-11-07 20:33 | XMS REPORT | Encounter Summary ---
Author Author [facility] Organization [facility] Address Unknown Phone Unavailable Care Team Providers Care Barometers Calibrator Name Role Phone Saleem Coon PCP Reason for Referral * Diagnostic Imaging (Routine) Referred By Contact Referred To Contact Status Reason Specialty Diagnoses / Procedures Ruth Garcia MD [address] [facility] [address] [place] [address] [facility] Nuc Med [address] [place] [address] Closed Cardiology Diagnoses Swelling Chest pain, unspecified chest pain type P rocedures CV MPI SPECT Exercise * Diagnostic Imaging (Routine) Referred By Contact Referred To Contact Status Reason Specialty Diagnoses / Procedures Ruth Garcia MD [address] [facility] [address] [place] [address] Closed Diagnoses Swelling P rocedures Electrocardiogram (ECG) without magnet Reason for Visit * Reason Comments Edema Encounter Details Care Team Description Date Type Department Ruth Garcia MD [address] [facility] [address] [place] [address] [phone] Swelling (Primary Dx); Chest pain, unspecified chest pain type 09/24/2015 Initial consult [facility] Jimmy Akhtar [facility] [address] [place] [address] Social History Date Tobacco Use Types Packs/Day [...] Comments Vital Sign 142/78 09/24/2015 10:55 AM IMMIGRATION JUDGE Blood Pressure 64 09/24/2015 10:55 AM IMMIGRATION JUDGE Pulse - - Temperature - - Respiratory Rate - - Oxygen Saturation - - Inhaled Oxygen Concentration 62.4 kg (137 lb 9.6 oz) 09/24/2015 10:55 AM IMMIGRATION JUDGE Weight 157.5 cm (5' 2") 09/24/2015 10:55 AM IMMIGRATION JUDGE Height 25.17 09/24/2015 10:55 AM IMMIGRATION JUDGE Body Mass Index documented in this encounter Progress Notes * Ruth Garcia MD - 09/24/2015 10:57 AM IMMIGRATION JUDGE [facility] Appointment Date: 09/24/2015 Saleem Coon DO [address] [place] [id number] RE: Jose Roberto Reeves : 1935 Visit [...] have an echocardiogram performed in 2014 in [place]. This reported normal systolic function with grade [...] these symptoms at rest. She denies orthop camreon, PND, lower extremity edema, palpitations, presyncope, syncope, [...] contact me. Sincerely, Ruth Garcia MD TLS/tmo GRATION JUDGE documented in this encounter Plan of Treatment Order Schedule Name Type Priority Associated Diag noses 1 Occurrences starting 09/24/2015 until 09/23/2016 CV MPI SPECT Exercise Cardiac Routine Swelling Services Chest pain, unspecified chest pain type documented as of this encounter Procedures Comments Procedure Name Priority Date/Time Associated Diag nosis ECG Routine 09/24/2015 Swelling 11:03 AM IMMIGRATION JUDGE documented in this encounter Results * Electrocardiogram (ECG) without magnet (09/24/2015 11:03 AM IMMIGRATION JUDGE) Specimen Narrative Performed At [facility] Test Date: 2015-09-24 Pat Name: JOSE ROBERTO REEVES Department: [facility] Room: Gender: Female Fleecer: Mackenzie Monteiro : 1935 Requested By: RUTH GARCIA Order Number: [id number] Reading MD: Ruth Garcia Measurements Intervals [place] Rate: 70 P: 78 PA: 196 QRS: -2 QRSD: 96 T: 12 QT: 404 QTc: 436 Interpretive Statements SINUS RHYTHM ATRIAL PREMATURE COMPLEX No previous ECG available for compariso n Electronically Signed On 09-24-2015 17:3 2:01 IMMIGRATION JUDGE by Ruth Garcia Performing Organization Address City/State/Zipcode Ph one Number [facility] documented in this encounter Visit Diagnoses Diagnosis Swelling Localized superficial swelling, mass, o r lump Chest pain, unspecified chest pain type documented in this encounter
--- OUTSIDE RECORDS SUMMARY | 2019-11-07 20:33 | XMS REPORT | Encounter Summary ---
Author Author [facility] Address Unknown Phone Unavailable Care Team Providers Care Vat Skimmer Name Role Phone Saleem Coon PCP Encounter Details Care Team Description Date Type Department Jayla Rogers RN 03/04/2016 Abstract [facility] [address] [facility] [address] [place], [place] [id number] Social History Date Tobacco Use Types Packs/Day [...] Address City/State/Zipcode Ph one Number [facility] [address] [place], [place] [address] [facility] [address] [place], [place] [address], [place] * Potassium (04/28/2015) Potassium 4.7 3.4 - 5.3 mmol/L [facility] Specimen Blood Performing Organization Address [facility] one Number [facility] [address] [place], [place] [address] [facility] [address] [place], [place] [address], [place] * Vitamin D, 25-Hydroxy (04/28/2015) Vitamin D 58.24 [facility] 25-Hydroxy Specimen Blood Performing Organization [facility] one Number [facility] [address] [place], [place] [address] [facility] [address] [place] [address], [place] * Thyroid Stimulating Hormone (04/28/2015) Thyroid 0.63 0.41 - 5.90 uIU/mL [facility] Stimulating Hormone Specimen Blood Performing Organization [facility] one Number [facility] [address] [place], [place] [address] [facility] [address] [place] [address], [place] * Aspartate Aminotransferase (04/28/2015) Aspartate 24 13 - 35 U/L [facility] Aminotransferas e Specimen Blood Performing Organization [facility] one Number [facility] [address] [place], [place] [address] [facility] [address] [place] [address], [place] * Alanine Aminotransferase (04/28/2015) Alanine 18 7 - 35 U/L [facility] Aminotransferas e Specimen Blood Performing Organization [facility] one Number [facility] [address] [place], [place] [address] [facility] [address] [place] [address], [place] documented in this encounter Visit Diagnoses Not on filedocumented in this encounter
--- OUTSIDE RECORDS SUMMARY | 2019-11-07 20:33 | XMS REPORT | Encounter Summary ---
Author Author [facility] Organization [facility] Address Unknown Phone Unavailable Care Team Providers Care Installation Service Representative Name Role Phone Saleem Coon PCP Reason for Referral * Electrophysiology (Routine) Referred By Contact Referred To Contact Status Reason Specialty Diagnoses / Procedures [facility] [place] [address] [place] [address] [address] [place] [address] Closed Procedures EKG Outside Record * Cardiac Cath (Routine) Referred By Contact Referred To Contact Status Reason Specialty Diagnoses / Procedures [facility] [place] [address] [place] [address] [address] [place] [address] Closed Procedures Coronary Angiography Encounter Details Care Team Description Date Type Department Kristy Monsalve MD no forwarding address 03/30/2016 Documentation [facility] [address] [place] [address] [address] [place], [place] [id number] Social History Date Tobacco Use Types Packs/Day [...]
--- OUTSIDE RECORDS SUMMARY | 2019-11-07 20:33 | XMS REPORT | Encounter Summary ---
Author Author [facility] Organization [facility] Address Unknown Phone Unavailable Care Team Providers Care Cylinder Filler Name Role Phone Saleem Coon PCP Encounter Details Care Team Description Date Type Department Sommer Clarke MD [address] [facility] [address] [place] [address] 01/19/2016 Documentation [facility] [address] [...]
--- OUTSIDE RECORDS SUMMARY | 2019-11-07 20:33 | XMS REPORT | Encounter Summary ---
Author Author [facility] Organization [facility] Address Unknown Phone Unavailable Care Team Providers Care Computer Lab Aide Name Role Phone Saleem Coon PCP Encounter Details Care Team Description Date Type Department Jaylon Andrade RN 09/22/2015 Abstract [facility] [address] [facility] [address] [place] [address] Social History Date Tobacco Use Types Packs/Day [...]
--- OUTSIDE RECORDS SUMMARY | 2019-11-07 20:33 | XMS REPORT | Encounter Summary ---
Author Author [facility] Address Unknown Phone Unavailable Care Team Providers Care Central Office Operator Name Role Phone Saleem Coon PCP Encounter Details Care Team Description Date Type Department Macie Parr RN 04/06/2016 Abstract [facility] [address] [facility] [address] [place] [address] Social History Date Tobacco Use Types Packs/Day [...]
--- OUTSIDE RECORDS SUMMARY | 2019-11-07 20:33 | XMS REPORT | Encounter Summary ---
Author Author [facility] Organization [facility] Address Unknown Phone Unavailable Care Team Providers Care Seafood Specialist Name Role Phone Saleem Coon PCP Encounter Details Care Team Description Date Type Department Ruth Garcia MD [address] [facility] [address] [place] [address] 08/10/2015 Documentation [facility] [address] [place] [address] [address] [place] [id number] Social History Date Tobacco Use Types Packs/Day [...]
--- OUTSIDE RECORDS SUMMARY | 2019-11-07 20:34 | XMS REPORT | Continuity of Care Document ---
Author Organization Unknown Address Unknown Phone Unavailable Allergies Active Description Code Type Severity Reaction Onset Reported/Identified Relationship to Patient Clinical Status Yes ANTIBIOTICS ALL ANTIBIOTICS ALL Unknown N/A 12/12/2013 Yes CARMELA CARMELA Unknown N/A 12/12/2013 Yes CODEINE CODEINE Unknown N/A 12/12/2013 Yes CORTISONE CORTISONE Unknown N/A 12/12/2013 Yes DYE DYE Unknown N/A 12/12/2013 Yes egg [id number] Drug Allergy Unknown N/A 12/12/2013 Yes latex [id number] Drug Allergy Unknown N/A 12/12/2013 Yes milk [id number] Drug Allergy Unknown N/A 12/12/2013 Medications There [...] 482.9 BACTERIAL PNEUMONIA NOS 07/22/2014 SHANDA CHO PENSIONHOLDER INFORMATION CLERK Ot 240.9 07/22/2014 SHANDA CHO PENSIONHOLDER INFORMATION CLERK Ot 787.20 09/08/2014 Ot 536.8 09/08/2014 Ot 789.01 09/08/2014 Ot 719.47 09/08/2014 Ot 729.5 09/08/2014 Ot 959.7 09/08/2014 Ot E000.8 09/08/2014 Ot E849.0 09/08/2014 Ot E888.9 09/08/2014 Ot 785.1 09/08/2014 Ot 733.90 09/08/2014 Ot 244.9 09/08/2014 Ot 536.8 09/08/2014 Ot 786.50 09/08/2014 Ot 627.1 09/08/2014 Ot 789.01 09/08/2014 KIM SHANDA Jiménez STAGE DIRECTOR Ot 719.41 09/08/2014 KIMSHANDA STAGE DIRECTOR Ot 723.1 09/08/2014 SHANDA CHO PENSIONHOLDER INFORMATION CLERK Ot 241.0 09/08/2014 BOB CHOIA Katty PENSIONHOLDER INFORMATION CLERK Ot V67.9 09/08/2014 PADMAJA CHORICIA L PENSIONHOLDER INFORMATION CLERK Ot 788.41 09/08/2014 LIANNA LÓPEZ, BRIT Falcon Ot 780.79 09/08/2014 BRIT DSOUZA MD Ot 793.11 09/08/2014 MI CHO DO Ot 486 09/08/2014 MI CHO DO Ot 780.60 09/08/2014 SHANDA CHO L PENSIONHOLDER INFORMATION CLERK Ot 240.9 09/08/2014 PADMAJA CHORICIA L PENSIONHOLDER INFORMATION CLERK Ot 787.20 09/09/2014 PADMAJA CHORICIA L PENSIONHOLDER INFORMATION CLERK Ot 789.09 10/12/2014 PADMAJA CHORICIA L PENSIONHOLDER INFORMATION CLERK Ot 789.09 01/14/2015 PADMAJA CHORICIA L PENSIONHOLDER INFORMATION CLERK Ot 786.50 01/19/2015 BOB CHOIA L PENSIONHOLDER INFORMATION CLERK Ot 786.50 02/04/2015 PADMAJA CHORICIA L PENSIONHOLDER INFORMATION CLERK Ot 786.50 07/28/2015 SHANDA CHO L PENSIONHOLDER INFORMATION CLERK Ot R05 11/19/2015 CHOSHANDA HAMMOND L PENSIONHOLDER INFORMATION CLERK Ot I25.10 11/19/2015 CHOBOB HAMMONDIA L PENSIONHOLDER INFORMATION CLERK Ot I65.23 11/19/2015 CHO, SHANDA L PENSIONHOLDER INFORMATION CLERK Ot I73.9 11/19/2015 CHO, SHANDA L PENSIONHOLDER INFORMATION CLERK Ot R42 11/23/2015 CHO, SHANDA L PENSIONHOLDER INFORMATION CLERK Ot I25.10 11/23/2015 CHO, SHANDA L PENSIONHOLDER INFORMATION CLERK Ot I65.23 11/23/2015 CHOBOB HAMMONDIA L PENSIONHOLDER INFORMATION CLERK Ot I73.9 11/23/2015 CHO, SHANDA L PENSIONHOLDER INFORMATION CLERK Ot R42 11/23/2015 CHO, SHANDA L PENSIONHOLDER INFORMATION CLERK Ot I25.10 11/23/2015 CHO, SHANDA L PENSIONHOLDER INFORMATION CLERK Ot I65.23 11/23/2015 CHOBOBIA L PENSIONHOLDER INFORMATION CLERK Ot I73.9 11/23/2015 CHOBOBIA L PENSIONHOLDER INFORMATION CLERK Ot R42 12/08/2015 CHOBOB HAMMONDIA L PENSIONHOLDER INFORMATION CLERK Ot I25.10 12/08/2015 CHOBOB HAMMONDIA L PENSIONHOLDER INFORMATION CLERK Ot I65.23 12/08/2015 CHOBOBIA L PENSIONHOLDER INFORMATION CLERK Ot I73.9 12/08/2015 CHOPADMAJASHANDA L PENSIONHOLDER INFORMATION CLERK Ot R42 04/10/2016 MI CHO DO Ot R10.13 EPIGASTRIC PAIN 04/10/2016 IM CHO DO Ot R19.03 RIGHT LOWER QUADRANT ABDOMINAL SWELLING, 04/11/2016 MI CHO DO Ot R10.13 EPIGASTRIC PAIN 04/11/2016 MI CHO DO Ot R19.03 RIGHT LOWER QUADRANT ABDOMINAL SWELLING, 04/27/2016 SHANDA ALVAREZ STAGE DIRECTOR Ot 719.41 JOINT PAIN-SHLDER 04/27/2016 SHANDA ALVAREZ STAGE DIRECTOR Ot 723.1 CERVICALGIA 04/28/2016 MI CHO DO [...] RIGHT UPPER QUADRANT 05/31/2016 RIDINGS, SHANDA C STAGE DIRECTOR Ot 719.41 JOINT PAIN-SHLDER 05/31/2016 RIDINGS, SHANDA C STAGE DIRECTOR Ot 723.1 CERVICALGIA 05/31/2016 SHANDA CHO L PENSIONHOLDER INFORMATION CLERK Ot 241.0 NONTOX UNINODULAR GOITER 05/31/2016 SHANDA CHO L PENSIONHOLDER INFORMATION CLERK Ot V67.9 FOLLOW-UP EXAM NOS 05/31/2016 SHANDA CHO PENSIONHOLDER INFORMATION CLERK Ot 788.41 URINARY FREQUENCY 05/31/2016 LIANNA LÓPEZ, BRIT Falcon Ot 780.79 OTH MALAISE FATIGUE 05/31/2016 LAINNA LÓPEZ, BRIT Falcon Ot 793.11 SOLITARY PULMONARY NODULE 05/31/2016 MI CHO DO Ot 486 PNEUMONIA, ORGANISM NOS 05/31/2016 MI CHO DO Ot 780.60 FEVER, UNSPECIFIED 05/31/2016 SHANDA CHO L PENSIONHOLDER INFORMATION CLERK Ot R05 COUGH 05/31/2016 SHANDA CHO L PENSIONHOLDER INFORMATION CLERK Ot 240.9 GOITER NOS 05/31/2016 BOB CHOIA L PENSIONHOLDER INFORMATION CLERK Ot 787.20 DYSPHAGIA, UNSPECIFIED 05/31/2016 BOB CHOIA L PENSIONHOLDER INFORMATION CLERK Ot 789.09 ABDOMINAL PAIN, OTHER SPECIFIED SITE 05/31/2016 SHANDA CHO L PENSIONHOLDER INFORMATION CLERK Ot 790.29 OTHER ABNORMAL GLUCOSE 05/31/2016 TREVIN GUILLEN DO Ot 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 05/31/2016 TREVIN GUILLEN DO Ot 780.79 OTH MALAISE FATIGUE 05/31/2016 TREVIN GUILLEN DO Ot 787.99 OTHER GI SYSTEM SYMPTOMS 05/31/2016 TREVIN GUILLEN DO Ot 789.06 ABDOMINAL PAIN, EPIGASTRIC 05/31/2016 SHANDA CHOP Ot 786.50 CHEST PAIN NOS 05/31/2016 SHANDA CHO PENSIONHOLDER INFORMATION CLERK Ot I25.10 ATHSCL HEART DISEASE OF [place] CORONARY 05/31/2016 SHANDA CHO PENSIONHOLDER INFORMATION CLERK Ot 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 05/31/2016 SHANDA CHO PENSIONHOLDER INFORMATION CLERK Ot I73.9 PERIPHERAL VASCULAR DISEASE, UNSPECIFIED 05/31/2016 SHANDA CHOP Ot R42 DIZZINESS AND GIDDINESS 05/31/2016 MI CHO DO Ot R10.13 EPIGASTRIC PAIN 05/31/2016 MI CHO DO Ot R19.03 RIGHT LOWER QUADRANT ABDOMINAL SWELLING, 06/01/2016 SHANDA CHO PENSIONHOLDER INFORMATION CLERK Ot I25.10 ATHSCL HEART DISEASE OF [place] CORONARY 06/01/2016 SHANDA CHO PENSIONHOLDER INFORMATION CLERK Ot 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 06/01/2016 BOB CHOIA Katty PENSIONHOLDER INFORMATION CLERK Ot I73.9 PERIPHERAL VASCULAR DISEASE, UNSPECIFIED 06/01/2016 [...] RIGHT UPPER QUADRANT PAIN 07/15/2018 SHANDA ALVAREZ STAGE DIRECTOR Ot 719.41 JOINT PAIN-SHLDER 07/15/2018 SHANDA ALVAREZ STAGE DIRECTOR Ot 723.1 CERVICALGIA 07/15/2018 SHANDA CHO PENSIONHOLDER INFORMATION CLERK Ot 241.0 NONTOX UNINODULAR GOITER 07/15/2018 SHNADA CHO PENSIONHOLDER INFORMATION CLERK Ot V67.9 FOLLOW-UP EXAM NOS 07/15/2018 MARQUIS SHANDA Alaniz PENSIONHOLDER INFORMATION CLERK Ot 788.41 URINARY FREQUENCY 07/15/2018 BRIT DSOUZA MD Ot 780.79 OTH MALAISE FATIGUE 07/15/2018 BRIT DSOUZA MD Ot 793.11 SOLITARY PULMONARY NODULE 07/15/2018 MI CHO DO Ot 486 PNEUMONIA, ORGANISM NOS 07/15/2018 MI CHO DO Ot 780.60 FEVER, UNSPECIFIED 07/15/2018 SHANDA CHO PENSIONHOLDER INFORMATION CLERK Ot R05 COUGH 07/15/2018 SHANDA CHO PENSIONHOLDER INFORMATION CLERK Ot 240.9 GOITER NOS 07/15/2018 SHANDA CHO PENSIONHOLDER INFORMATION CLERK Ot 787.20 DYSPHAGIA, UNSPECIFIED 07/15/2018 SHANDA CHO PENSIONHOLDER INFORMATION CLERK Ot 789.09 ABDOMINAL PAIN, OTHER SPECIFIED SITE 07/15/2018 SHANDA CHO PENSIONHOLDER INFORMATION CLERK Ot 790.29 OTHER ABNORMAL GLUCOSE 07/15/2018 TREVIN GUILLEN DO Ot 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 07/15/2018 TREVIN GUILLEN DO Ot 780.79 OTH MALAISE FATIGUE 07/15/2018 TREVIN GUILLEN DO Ot 787.99 OTHER GI SYSTEM SYMPTOMS 07/15/2018 TREVIN GUILLEN DO Ot 789.06 ABDOMINAL PAIN, EPIGASTRIC 07/15/2018 SHANDA CHO PENSIONHOLDER INFORMATION CLERK Ot 786.50 CHEST PAIN NOS 07/15/2018 SHANDA CHO PENSIONHOLDER INFORMATION CLERK Ot I25.10 ATHSCL HEART DISEASE OF [place] CORONARY 07/15/2018 SHANDA CHO L PENSIONHOLDER INFORMATION CLERK Ot 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 07/15/2018 SHANDA CHO L PENSIONHOLDER INFORMATION CLERK Ot I73.9 PERIPHERAL VASCULAR DISEASE, UNSPECIFIED 07/15/2018 SHANDA CHO L PENSIONHOLDER INFORMATION CLERK Ot R42 DIZZINESS AND GIDDINESS 07/15/2018 MI [...] CEREBRAL ISCHEMIC ATTACK, UNSP 09/18/2019 SHANDA CHO PENSIONHOLDER INFORMATION CLERK Ot R05 COUGH 09/18/2019 SHANDA CHO PENSIONHOLDER INFORMATION CLERK Ot 240.9 GOITER NOS 09/18/2019 SHANDA CHO PENSIONHOLDER INFORMATION CLERK Ot 787.20 DYSPHAGIA, UNSPECIFIED 09/18/2019 SHANDA CHO PENSIONHOLDER INFORMATION CLERK Ot 789.09 ABDOMINAL PAIN, OTHER SPECIFIED SITE 09/18/2019 SHANDA CHO PENSIONHOLDER INFORMATION CLERK Ot 790.29 OTHER ABNORMAL GLUCOSE 09/18/2019 TREVIN GUILLEN DO Ot 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 Type Provider Facility Loc./Unit Complaint [id number] 11/05/2019 18:05:00 020 08:50:00 DIS Inpatient MI CHO DO [facility] CSD PAPLITATIONS,DY SPNEA,PEDAL EDEMA,LBBB [id number] 09/19/2019 10:27:00 020 23:59:59 CLS Outpatient MI CHO DO [facility] RAD TRANSIENT ISCHE GINA ATTACK [id number] 07/15/2018 10:15:00 018 23:59:59 CLS Outpatient MI CHO DO [facility] RAD L LEG NEUROPATH Y [id number] 08/10/2017 08:38:00 017 23:59:59 CLS Preadmit MI CHO DO [facility] RAD SIATICA [id number] 07/31/2017 12:30:00 017 23:59:59 CLS Outpatient CHOSHANDA LOBATO PENSIONHOLDER INFORMATION CLERK [facility] RAD RUQ PAIN [id number] 05/31/2016 12:35:00 016 23:59:59 CLS Outpatient MI CHO DO [facility] RT J44.9 [id number] 04/07/2016 13:40:00 016 23:59:59 CLS Outpatient MI CHO DO [facility] RAD R10.13 [id number] 11/18/2015 11:39:00 016 23:59:59 CLS Outpatient CHOBOB LOBATOIA L PENSIONHOLDER INFORMATION CLERK [facility] RAD CLAUDICATION,DI ZZINESS, CAD [id number] 06/29/2015 11:06:00 015 23:59:59 CLS Outpatient CHOBOB LOBATOIA L PENSIONHOLDER INFORMATION CLERK [facility] RAD COUGH [id number] 01/13/2015 12:33:00 015 23:59:59 CLS Outpatient CHOPADMAJA LOBATORICIA L PENSIONHOLDER INFORMATION CLERK [facility] CARD CHEST PAIN [id number] 10/02/2014 08:25:00 015 23:59:59 CLS Outpatient DEFFENBAUGH TREVIN [facility] LAB ABD PAIN,CHG IN BOWEL HABITS,MALAISE,DIST OF SALIV [id number] 10/02/2014 08:09:00 015 23:59:59 CLS Outpatient CHOBOB HAMMONDIA L PENSIONHOLDER INFORMATION CLERK [facility] LAB ELEVATED GLUCOS E [id number] 09/08/2014 13:28:00 015 23:59:59 CLS Outpatient SHANDA CHO [facility] RAD RIGHT RENAL PEL VIS PAIN [id number] 06/25/2014 14:43:00 014 23:59:59 CLS Outpatient SHANDA CHO [facility] RAD THYROMEGALY/ DI FFICULTY SWALLOWING [id number] 12/11/2013 15:00:00 014 16:45:00 DIS Inpatient MI COH DO [facility] 4TH PNEUMONIA [id number] 12/11/2013 10:28:00 014 23:59:59 CLS Outpatient MI CHO DO [facility] RAD PNEUMONIA,FEVER [id number] 11/19/2013 15:47:00 014 23:59:59 CLS Outpatient BRIT DSOUZA MD [facility] RAD DECEMBER 2011 NODULE ON CXR [id number] 09/24/2013 15:32:00 014 23:59:59 CLS Outpatient SHANDA CHO [facility] RAD URINARY FREQUEN CY [id number] 03/28/2013 12:18:00 013 23:59:59 CLS Outpatient SHANDA CHO [facility] RAD THYROID NODULE RECHECK [id number] 02/21/2013 10:59:00 013 22:00:00 DIS Inpatient MI CHO DO [facility] CSD CHEST PAIN [id number] 02/18/2013 13:50:00 013 23:59:59 CLS Outpatient SHANDA ALVAREZ APRN [facility] RAD NECK RT SHOUL LISA PAIN [id number] 11/12/2019 12:30:00 P EN Preadmit DANIELE BLACKBURN MD [facility] CARD BIRCH,PALPITATIONS,LBBB [id number] 11/11/2019 10:00:00 P EN Preadmit BERE MD, DANIELE De La Garza [facility] BIRCH,PALPITATION,LBBB [id number] 09/08/2014 13:29:00 Document Registration [id number] 09/08/2014 13:28:00 Document Registration [id number] 12/02/2012 09:09:00 Document Registration [id number] 06/05/2012 11:02:00 Document Registration [id number] 06/04/2012 07:10:00 Document Registration [id number] 03/08/2012 10:37:00 Document Registration [id number] 01/03/2012 17:16:00 Document Registration [id number] 01/02/2012 08:55:00 Document Registration [id number] 12/07/2011 09:21:00 Document Registration [id number] 10/05/2011 11:52:00 Document Registration [id number] 04/09/2009 08:51:00 Document Registration [id number] 01/13/2015 12:33:30 ACT Document Registration
== END 2019-11-06 08:50 | disposition home or self-care (01) ==
LOC: EDUNIT# 16:46 → ER 16:48 → ICU 18:05 → CSD 11-06 01:05
PROVIDERS: ADMIT Family Medicine; ATTEND Internal Medicine
DX: I44.7 Left bundle-branch block, unspecified (principal); E03.9 Hypothyroidism, unspecified; I11.9 Hypertensive heart disease without heart failure; K59.09 Other constipation; Z91.040 Latex allergy status; Z91.012 Allergy to eggs; Z91.011 Allergy to milk products; Z88.8 Allergy status to other drugs, medicaments and biological substances; Z88.5 Allergy status to narcotic agent; Z91.041 Radiographic dye allergy status; Z79.82 Long term (current) use of aspirin; Z79.899 Other long term (current) drug therapy; Z90.89 Acquired absence of other organs; Z90.710 Acquired absence of both cervix and uterus; Z82.61 Family history of arthritis; Z82.62 Family history of osteoporosis
CPT/HCPCS: 36415; 71045; 80053; 82550; 82553; 83735; 83874; 83880; 84443; 84484; 85025; 85610; 85730; 93005; 93041

== ENCOUNTER → 2020-03-30 | Outpatient (CLI) | payer MEDICARE, OTHER | LOC: CARD 10:48 | PROVIDERS: ATTEND Internal Medicine Cardiovascular Disease | DX: I08.3 Combined rheumatic disorders of mitral, aortic and tricuspid valves (principal); I44.7 Left bundle-branch block, unspecified | CPT/HCPCS: 93306 ==

== ENCOUNTER → 2020-12-30 | Outpatient (CLI) | payer MEDICARE, OTHER ==
--- NOTE | 2020-12-30 14:43 | Diagnostic Imaging Report ---
PROCEDURE: Pelvic comp/transvaginal sonogram. TECHNIQUE: Complete transabdominal and transvaginal pelvic ultrasound was performed. In addition, limited pelvic Doppler was performed. INDICATION: Partial hysterectomy. FINDINGS: The uterus is surgically absent. Vaginal cuff is unremarkable. Right ovary was not visualized. There is shadowing from the right adnexa, etiology indeterminate. Left ovary measures 1.1 x 0.5 x 0.5 cm. No free fluid or mass is seen. IMPRESSION: Partial hysterectomy. Left ovary is unremarkable. There is a large amount of shadowing arising from the right adnexa which could be secondary to a calcified mass. A CT may be useful for further evaluation. Dictated by: Dictated on workstation # [id number]
== END ==
LOC: RAD 10:48
PROVIDERS: ATTEND Nurse Practitioner Family
DX: R19.09 Other intra-abdominal and pelvic swelling, mass and lump (principal); R10.2 Pelvic and perineal pain; Z90.710 Acquired absence of both cervix and uterus
CPT/HCPCS: 76830; 76856

== ENCOUNTER → 2022-06-30 | Outpatient (CLI) | payer MEDICARE, OTHER | LOC: CARD 12:57 | PROVIDERS: ATTEND Nurse Practitioner Family | DX: I08.1 Rheumatic disorders of both mitral and tricuspid valves (principal); I50.9 Heart failure, unspecified; I44.7 Left bundle-branch block, unspecified | CPT/HCPCS: 93306 ==